=== PATIENT | male | born 1960 | race Caucasian/White ===

== ENCOUNTER 2016-12-08 16:18 | Inpatient (IN) | payer MEDICAID ==
[2016-12-08] VITALS (7 sets, daily range): BP systolic 110–133; BP diastolic 68–88
[~2016-12-08] VITALS: Ht 162.6 cm; Wt 65.8 kg
--- NOTE | 2016-12-08 16:28 | Emergency Room Report ---
History of Present Illness General Chief Complaint: Abnormal Labs Source: Patient, Medical Record, EMS Present Illness HPI 56YOM Sent from SNF for "low Hb". Hb 7.9 from 1 week ago. Known anemia. Known CKD. Allergies: Uncoded Allergies: PCN (Allergy, Unknown, 12/08/16) Patient History Past Medical History: HTN, renal disease, other - anemia Past Surgical History: none Pertinent Family History: none Social History: Denies: alcohol use, drug use, smoking Immunizations: UTD Reviewed Nursing Documentation: PMH: Agreed, PSxH: Agreed Review of Systems All Other Systems: negative except mentioned in HPI Physical Exam Vital Signs Date Time Temp Pulse Resp B/P Pulse Ox O2 Delivery O2 Flow Rate FiO2 12/08/16 16:22 98.1 90 22 124/70 91 Room Air Sp02 EP Interpretation: reviewed, normal General Appearance: normal inspection, well appearing, no apparent distress, alert, GCS 15, non-toxic Head: normocephalic, atraumatic Eyes: bilateral eye EOMI, bilateral eye PERRL ENT: normal ENT inspection, hearing grossly normal, normal voice Neck: normal inspection, full range of motion, supple, no bony tend Respiratory: normal inspection, lungs clear, normal breath sounds, no respiratory distress, no retraction, no wheezing Cardiovascular #1: regular rate, rhythm, no edema Gastrointestinal: normal inspection, normal bowel sounds, non tender, soft, no guarding, no hernia Genitourinary: no CVA tenderness Musculoskeletal: normal inspection, back normal, normal range of motion, Aditya' s Sign negative Neurologic: normal inspection, alert, oriented x3, responsive, 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 7.6 - Transfused 2U PRBC in ED Hyperglycemia - Glucose ~300. - IVF Ns and insulin given - Bicarb, K normal. No AG. Very unlikely DKA Endorsed to Dr Roman as covering hospitalist at 617pm for med/surg admission Last Vital Signs Date Time Temp Pulse Resp B/P Pulse Ox O2 Delivery O2 Flow Rate FiO2 12/08/16 16:22 98.1 90 22 124/70 91 Room Air Status: improved Disposition: ADMITTED INPATIENT Condition: Serious SHARIFA CARLOS M.D. Dec 08, 2016 16:28
[2016-12-08 17:26] LABS: MEAN CORPUSCULAR HEMOGLOBIN 20.6 PG (27.0-31.0); MEAN CORPUSCULAR HGB CONC 28.4 G/DL (32.0-36.0); MEAN CORPUSCULAR VOLUME 73 FL (80-99); PLATELET COUNT 296 K/UL (150-450); RED BLOOD COUNT 3.69 M/UL (4.70-6.10); RED CELL DISTRIBUTION WIDTH 20.5 % (11.6-14.8)
[2016-12-08 17:45] LABS: ALANINE AMINOTRANSFERASE 10 U/L (3-41); ALBUMIN/GLOBULIN RATIO 0.3 (1.0-2.7); ANION GAP 14 (5-15); ASPARTATE AMINO TRANSFERASE 8 U/L (5-40); CALCIUM 9.3 mg/dL (8.6-10.2); CARBON DIOXIDE 25 mEQ/L (20-30); CHLORIDE 91 mEQ/L (98-107); CREATININE 0.6 mg/dL (0.7-1.2); GLOMERULAR FILTRATION RATE > 60 mL/min (>60); HEMOLYSIS 0; POTASSIUM 4.5 mEQ/L (3.4-4.9); SODIUM 130 mEQ/L (135-145); TOTAL PROTEIN 8.6 g/dL (6.6-8.7)
[2016-12-08 17:56] LABS: INR 1.1 (0.9-1.1); PROTHROMBIN TIME 11.4 SEC (9.30-11.50)
[2016-12-08] MEDS ORDERED: Miralax 17gm pkt ORAL PRN (18:30)
[2016-12-08] MEDS ORDERED: Zolpidem 5mg tab ORAL PRN (18:30)
[2016-12-08] MEDS ORDERED: Mylanta II UD 30ml ORAL PRN (18:30)
[2016-12-08 18:53] LABS: BAND NEUTROPHILS % (MANUAL) 1 % (0-8); LYMPHOCYTES % (MANUAL) 6 % (20-45); NEUTROPHILS % (MANUAL) 83 % (45-75); TOTAL CELLS COUNTED 100
[2016-12-08 18:55] LABS: ANISOCYTOSIS 3+; HYPOCHROMASIA 2+; MICROCYTES 2+; PLATELET MORPHOLOGY NORMAL; POLYCHROMASIA 1+
[2016-12-08 18:56] LABS: BASOPHILS % (MANUAL) 0 % (0-2); EOSINOPHILS % (MANUAL) 0 % (0-3); PLATELET ESTIMATE ADEQUATE
[2016-12-08] MEDS: Morphine Sulfate 2mg/ml Inj IVP PRN (19:14)
[2016-12-08] MEDS ORDERED: DULCOLAX10 MG RC (20:00)
[2016-12-08] MEDS ORDERED: BENAZEPRIL HCL40 MG ORAL (20:00)
[2016-12-08] MEDS ORDERED: FERROUS SULFAT325 MG ORAL (20:00)
[2016-12-08] MEDS ORDERED: FLEET ENEMA133 ML RECTAL (20:00)
[2016-12-08] MEDS ORDERED: DEPAKOTE ER500 MG ORAL (20:00)
[2016-12-08] MEDS ORDERED: COLACE100 MG ORAL (20:00)
[2016-12-08] MEDS ORDERED: ASPIRIN81 MG ORAL (20:00)
[2016-12-08] MEDS ORDERED: TYLENOL WITH C1 EAC2 ORAL (20:04)
[2016-12-08] MEDS ORDERED: MULTIVITAMINS1 EAC2 ORAL (20:04)
[2016-12-08] MEDS ORDERED: NORVASC10 MG ORAL (20:04)
[2016-12-08] MEDS ORDERED: ZOFRAN4 M3 ORAL (20:04)
[2016-12-08] MEDS ORDERED: ZOCOR20 M1 ORAL (20:04)
[2016-12-08] MEDS ORDERED: VITAMIN C500 M1 ORAL (20:04)
[2016-12-08] MEDS ORDERED: RESTORIL15 MG ORAL (20:04)
[2016-12-08] MEDS ORDERED: TYLENOL650 MG PR (20:04)
[2016-12-08] MEDS ORDERED: SENNA8.6 M2 PO (20:04)
[2016-12-08] MEDS ORDERED: TRAZODONE HCL150 MG ORAL (20:04)
[2016-12-08] MEDS ORDERED: GLUCOTROL5 MG ORAL (20:04)
[2016-12-08] MEDS ORDERED: MILK OF MA400 MG/51 ORAL (20:04)
[2016-12-08 20:28] LABS: PATH BLOOD SMEAR/OMC SENT TO PATHOLOGIST
[2016-12-08 22:21] LABS: RETICULOCYTE COUNT 0.4 % (0.0-2.0)
[2016-12-09] VITALS: BP 130/81
[2016-12-09 04:00] VITALS: BP 130/79
[2016-12-09 06:37] LABS: BASOPHILS % (AUTO) 1.1 % (0.0-2.0); EOSINOPHILS % (AUTO) 0.2 % (0.0-3.0); LYMPHOCYTES % (AUTO) 12.6 % (20.0-45.0); MEAN CORPUSCULAR HEMOGLOBIN 23.2 PG (27.0-31.0); MEAN CORPUSCULAR HGB CONC 30.9 G/DL (32.0-36.0); MEAN CORPUSCULAR VOLUME 75 FL (80-99); MEAN PLATELET VOLUME 4.4 FL (6.5-10.1); MONOCYTES % (AUTO) 10.7 % (1.0-10.0); NEUTROPHILS % (AUTO) 75.4 % (45.0-75.0); PLATELET COUNT 269 K/UL (150-450); RED CELL DISTRIBUTION WIDTH 20.4 % (11.6-14.8); WHITE BLOOD COUNT 6.5 K/UL (4.8-10.8)
[2016-12-09 06:54] LABS: ALANINE AMINOTRANSFERASE 9 U/L (3-41); ALBUMIN/GLOBULIN RATIO 0.3 (1.0-2.7); ANION GAP 13 (5-15); ASPARTATE AMINO TRANSFERASE 9 U/L (5-40); CALCIUM 9.4 mg/dL (8.6-10.2); CARBON DIOXIDE 25 mEQ/L (20-30); CHLORIDE 93 mEQ/L (98-107); CREATININE 0.5 mg/dL (0.7-1.2); GLOMERULAR FILTRATION RATE > 60 mL/min (>60); HEMOLYSIS 0; POTASSIUM 4.2 mEQ/L (3.4-4.9); SODIUM 131 mEQ/L (135-145); TOTAL PROTEIN 8.9 g/dL (6.6-8.7)
[2016-12-09 08:00] VITALS: BP 120/80
--- NOTE | 2016-12-09 09:46 | History and Physical ---
History of Present Illness General Date patient seen: Dec 09, 2016 Time patient seen: 09:00 Reason for Hospitalization: anemia Present Illness HPI 56Y/O male with PMH of DM, HTN, hx of CVA, anemia, CKD, schizophrenia was sent from SNF for "low Hb". Hb 7.9 from 1 week ago in SNF IN ED HH - 7.6/26.8 patient received 2 u PRBC in ED BS -300 ; no elevated AG, stable K and bicarbonate, unlikely DKA pulse oximetry was 91% on RA Na-130 patient was admitted for further management Allergies: Uncoded Allergies: PCN (Allergy, Unknown, 12/08/16) Medication History Scheduled Amlodipine Besylate (Norvasc), 10 MG ORAL DAILY, (Reported) Ascorbic Acid* (Vitamin C*), 500 MG ORAL DAILY, (Reported) Aspirin* (Aspirin*), 81 MG ORAL DAILY, (Reported) Benazepril Hcl* (Benazepril Hcl*), 40 MG ORAL DAILY, (Reported) Divalproex Sodium* (Depakote Er*), 500 MG ORAL TID, (Reported) Docusate Sodium* (Colace*), 100 MG ORAL DAILY, (Reported) Ferrous Sulfate* (Ferrous Sulfate*), 325 MG ORAL DAILY, (Reported) Glipizide* (Glucotrol*), 5 MG ORAL ACBREAKFAST, (Reported) Multivitamins* (Multivitamins*), 1 TAB ORAL DAILY, (Reported) Na Phos,M-B/Na Phos,Di-Ba* (Fleet Enema*), 133 ML RECTAL DAILY, (Reported) Sennosides (Senna), 2 TAB PO BEDTIME, (Reported) Simvastatin (Zocor), 20 MG ORAL BEDTIME, (Reported) Trazodone* (Trazodone*), 75 MG ORAL BEDTIME, (Reported) Scheduled PRN Acetaminophen (Acetaminophen), 650 MG MI Q4HR PRN for For Pain, (Reported) Acetaminophen With Codeine (T#3) (Tylenol With Codeine #3 Tablet), 1 TAB ORAL Q6HR PRN for For Pain, (Reported) Bisacodyl (Dulcolax), 10 MG RC NEEDED PRN for Constipation, (Reported) Magnesium Hydroxide* (Milk Of Magnesia*), 30 ML ORAL DAILY PRN for Constipation, (Reported) Ondansetron* (Zofran*), 4 MG ORAL Q6H PRN for Nausea & Vomiting, (Reported) Temazepam* (Restoril*), 15 MG ORAL BEDTIME PRN for Insomnia, (Reported) Patient History Healthcare decision maker N Resuscitation status Full Code Advanced Directive on File Yes Past Medical/Surgical History Past Medical/Surgical History: (1) HTN (hypertension) (2) CKD (chronic kidney disease) (3) Anemia (4) Bipolar disorder (5) Schizophrenia (6) History of CVA (cerebrovascular accident) Review of Systems ROS Narrative limited due to patietn Physical Exam General Appearance: no apparent distress, alert Lines, tubes and drains: peripheral HEENT: normocephalic, atraumatic, anicteric, mucous membranes moist Respiratory/Chest: lungs clear, no respiratory distress, no accessory muscle use Cardiovascular/Chest: normal rate, regular rhythm, no JVD Abdomen: normal bowel sounds, non tender, soft Skin Exam: rash - generalzied, pruritic, linear streaks all over the body, some with blood from scratching Neurologic: alert, responsive Last 24 Hour Vital Signs Date Time Temp Pulse Resp B/P Pulse Ox O2 Delivery O2 Flow Rate FiO2 12/09/16 08:00 97.3 87 20 120/80 91 Room Air 12/09/16 04:00 97.4 83 18 130/79 96 Room Air 12/09/16 00:00 97.0 84 20 130/81 96 Room Air 12/08/16 21:00 96.4 87 20 133/87 94 Room Air 12/08/16 20:53 96.4 87 20 133/87 94 Room Air 12/08/16 20:10 99.0 89 22 119/88 95 Room Air 12/08/16 19:55 99.0 89 22 119/88 95 Room Air 12/08/16 19:40 99.6 86 24 12/08/16 19:40 99.6 86 24 117/84 94 Room Air 12/08/16 19:00 98.8 85 21 117/84 95 Room Air 12/08/16 17:59 98.3 90 21 110/76 95 Room Air 12/08/16 16:30 98.7 91 21 117/68 93 Room Air 12/08/16 16:22 98.1 90 22 124/70 91 Room Air Intake and Output 12/08/16 12/09/16 19:00 07:00 Intake Total 240 ml 3440 ml Output Total 200 ml Balance 40 ml 3440 ml Intake Oral 240 ml 1840 ml IV Total 1000 ml Blood Product 600 ml Output Urine Total 200 ml # Voids 1 5 Laboratory Tests Test 12/08/16 17:05 12/08/16 19:40 12/09/16 05:50 White Blood Count 6.0 K/UL (4.8-10.8) 6.5 K/UL (4.8-10.8) Red Blood Count 3.69 M/UL (4.70-6.10) L 3.80 M/UL (4.70-6.10) L Hemoglobin 7.6 G/DL (14.2-18.0) L 8.8 G/DL (14.2-18.0) L Hematocrit 26.8 % (42.0-52.0) L 28.6 % (42.0-52.0) L Mean Corpuscular Volume 73 FL (80-99) L 75 FL (80-99) L Mean Corpuscular Hemoglobin 20.6 PG (27.0-31.0) L 23.2 PG (27.0-31.0) L Mean Corpuscular Hemoglobin Concent 28.4 G/DL (32.0-36.0) L 30.9 G/DL (32.0-36.0) L Red Cell Distribution Width 20.5 % (11.6-14.8) H 20.4 % (11.6-14.8) H Platelet Count 296 K/UL (150-450) 269 K/UL (150-450) Mean Platelet Volume 5.0 FL (6.5-10.1) L 4.4 FL (6.5-10.1) L Neutrophils (%) (Auto) % (45.0-75.0) 75.4 % (45.0-75.0) H Lymphocytes (%) (Auto) % (20.0-45.0) 12.6 % (20.0-45.0) L Monocytes (%) (Auto) % (1.0-10.0) 10.7 % (1.0-10.0) H Eosinophils (%) (Auto) % (0.0-3.0) 0.2 % (0.0-3.0) Basophils (%) (Auto) % (0.0-2.0) 1.1 % (0.0-2.0) Differential Total Cells Counted 100 Neutrophils % (Manual) 83 % (45-75) H Lymphocytes % (Manual) 6 % (20-45) L Monocytes % (Manual) 10 % (1-10) Eosinophils % (Manual) 0 % (0-3) Basophils % (Manual) 0 % (0-2) Band Neutrophils 1 % (0-8) Platelet Estimate Adequate Platelet Morphology Normal Polychromasia 1+ Hypochromasia 2+ Anisocytosis 3+ Microcytosis 2+ Prothrombin Time 11.4 SEC (9.30-11.50) Prothromb Time International Ratio 1.1 (0.9-1.1) Activated Partial Thromboplast Time 35 SEC (23-33) H Sodium Level 130 mEQ/L (135-145) L 131 mEQ/L (135-145) L Potassium Level 4.5 mEQ/L (3.4-4.9) 4.2 mEQ/L (3.4-4.9) Chloride Level 91 mEQ/L (98-107) L 93 mEQ/L (98-107) L Carbon Dioxide Level 25 mEQ/L (20-30) 25 mEQ/L (20-30) Anion Gap 14 (5-15) 13 (5-15) Blood Urea Nitrogen 12 mg/dL (7-23) 9 mg/dL (7-23) Creatinine 0.6 mg/dL (0.7-1.2) L 0.5 mg/dL (0.7-1.2) L Estimat Glomerular Filtration Rate > 60 mL/min (>60) > 60 mL/min (>60) Glucose Level 300 mg/dL (74-106) H 93 mg/dL (74-106) # Calcium Level 9.3 mg/dL (8.6-10.2) 9.4 mg/dL (8.6-10.2) Total Bilirubin 0.2 mg/dL (0.0-1.2) 0.4 mg/dL (0.0-1.2) Aspartate Amino Transf (AST/SGOT) 8 U/L (5-40) 9 U/L (5-40) Alanine Aminotransferase (ALT/SGPT) 10 U/L (3-41) 9 U/L (3-41) Alkaline Phosphatase 170 U/L (40-129) H 166 U/L (40-129) H Total Protein 8.6 g/dL (6.6-8.7) 8.9 g/dL (6.6-8.7) H Albumin 2.4 g/dL (3.5-5.2) L 2.3 g/dL (3.5-5.2) L Globulin 6.2 g/dL 6.6 g/dL Albumin/Globulin Ratio 0.3 (1.0-2.7) L 0.3 (1.0-2.7) L Erythrocyte Sedimentation Rate 48 MM/HR (0-20) H Reticulocyte Count 0.4 % (0.0-2.0) Iron Level 27 ug/dL (59-158) L Total Iron Binding Capacity 177 ug/dL (250-400) L Percent Iron Saturation 15 % (15-50) Unsaturated Iron Binding 150 ug/dL (112-346) Lactate Dehydrogenase Pending Carcinoembryonic Antigen 2.6 ng/mL Vitamin B12 Level 421 pg/mL (211-946) Folate Pending Thyroid Stimulating Hormone (TSH) 9.670 uIU/mL (0.300-4.500) Height (Feet): 5 Height (Inches): 4.00 Weight (Pounds): 145 Medications Current Medications Medications (Trade) Dose Ordered Sig/Korey Route PRN Reason Start Time Stop Time Status Last Admin Dose Admin Acetaminophen (Tylenol) 650 mg Q4H PRN ORAL fever 12/08/16 18:30 01/07/17 18:29 Al Hydroxide/Mg Hydroxide (Mylanta II) 30 ml Q6H PRN ORAL dyspepsia 12/08/16 18:30 01/07/17 18:29 Dextrose (Dextrose 50%) STAT PRN IV Hypoglycemia 12/08/16 18:30 01/07/17 18:29 Lorazepam (Ativan 2mg/ml 1ml) 0.5 mg Q4H PRN IV For Anxiety 12/08/16 18:30 12/15/16 18:29 Morphine Sulfate (Morphine Sulfate) 1 mg Q4H PRN IVP For Pain 12/08/16 18:30 12/15/16 18:29 12/08/16 19:14 Ondansetron HCl (Zofran) 4 mg Q6H PRN IVP Nausea & Vomiting 12/08/16 18:30 01/07/17 18:29 Polyethylene Glycol (Miralax) 17 gm HSPRN PRN ORAL Constipation 12/08/16 18:30 01/07/17 18:29 Zolpidem Tartrate (Ambien) 5 mg HSPRN PRN ORAL Insomnia 12/08/16 18:30 01/07/17 18:29 Assessment/Plan Assessment/Plan ASSESSMENT anemia hyperglycemia DM Rash with pruritis possible scabies elevated TSH hyponatremia HTN schizophrenia PLAN OF CARE MS floor anemia workup monitor HH, transfuse prn check CEA stool OB BS management with SS of insulin , check HgA1c IVF with NS, check Na in am, renal parameters stable check free T4 and T3, no known history of hypothyroidism, elevated TSH noted Permethrin today antipruritic prn contact isolation wound nurse eval venous Duplex BLE BP stable, without any anti HTN will reevaluate in am consider psych eval resume Depakote bowel regimen case discussed and evaluated by supervising physician Dimitris (Yaritza),Sandi JAQUEZ Dec 09, 2016 09:46
[2016-12-09 12:00] VITALS: BP 133/84
[2016-12-09] MEDS ORDERED: HydrOXYzine 50mg cap ORAL PRN (14:30)
[2016-12-09] MEDS: LORazepam Inj 2mg/ml 1ml IV PRN (15:04)
[2016-12-09] MEDS: Morphine Sulfate 2mg/ml Inj IVP PRN (15:05)
[2016-12-09 16:00] VITALS: BP 99/54
[2016-12-09] MEDS: NovoLOG Insulin Flexpen SUBQ SCH ×2 (17:23→20:37)
[2016-12-09] MEDS: Depakote ER 500mg tab ORAL SCH (18:36)
[2016-12-10] VITALS: BP 127/83
[2016-12-10 04:00] VITALS: BP 121/85
[2016-12-10] MEDS: NovoLOG Insulin Flexpen SUBQ SCH ×4 (05:57→22:07)
[2016-12-10] MEDS: Morphine Sulfate 2mg/ml Inj IVP PRN ×3 (06:38→22:56)
[2016-12-10 06:58] LABS: HEMOGLOBIN A1C 5.6 % (< 6.0)
[2016-12-10 07:12] LABS: BASOPHILS % (AUTO) 1.2 % (0.0-2.0); EOSINOPHILS % (AUTO) 0.7 % (0.0-3.0); LYMPHOCYTES % (AUTO) 12.4 % (20.0-45.0); MEAN CORPUSCULAR HEMOGLOBIN 22.6 PG (27.0-31.0); MEAN CORPUSCULAR HGB CONC 29.9 G/DL (32.0-36.0); MEAN CORPUSCULAR VOLUME 76 FL (80-99); MEAN PLATELET VOLUME 4.4 FL (6.5-10.1); MONOCYTES % (AUTO) 14.2 % (1.0-10.0); NEUTROPHILS % (AUTO) 71.5 % (45.0-75.0); PLATELET COUNT 309 K/UL (150-450); RED BLOOD COUNT 3.98 M/UL (4.70-6.10); RED CELL DISTRIBUTION WIDTH 21.2 % (11.6-14.8); WHITE BLOOD COUNT 5.6 K/UL (4.8-10.8)
[2016-12-10 07:13] LABS: ANION GAP 14 (5-15); CALCIUM 9.4 mg/dL (8.6-10.2); CARBON DIOXIDE 23 mEQ/L (20-30); CHLORIDE 97 mEQ/L (98-107); CREATININE 0.5 mg/dL (0.7-1.2); GLOMERULAR FILTRATION RATE > 60 mL/min (>60); HEMOLYSIS 0; POTASSIUM 3.9 mEQ/L (3.4-4.9); SODIUM 134 mEQ/L (135-145)
[2016-12-10 08:00] VITALS: BP 130/80
[2016-12-10] MEDS: Depakote ER 500mg tab ORAL SCH ×3 (08:23→18:27)
[2016-12-10] MEDS: LORazepam Inj 2mg/ml 1ml IV PRN ×2 (08:37→20:10)
--- NOTE | 2016-12-10 11:52 | Pulmonology Progress Note ---
Assessment/Plan Assessment/Plan ASSESSMENT anemia hyperglycemia DM Rash with pruritis possible scabies hypothyroidism ( new onset) hyponatremia HTN schizophrenia PLAN OF CARE MS floor anemia workup with low iron ,Venofer x 1 monitor HH, transfuse prn CEA WNL stool OB BS management with SS of insulin , NgG5p-3.6 IVF with NS, Na up to 134, hypoNa likely was depletional , continue iVF x 1 more day renal parameters stable low free T4 and elevated TSH, no known history of hypothyroidism, new onset, will start low dose Synthroid s/p Permethrin Rx 12/09 and repeat in 1 week in SNF antipruritic prn contact isolation wound nurse eval venous Duplex BLE remains normotensive, no need for anti HTN at this time will reevaluate in am consider psych eval resume Depakote bowel regimen case discussed and evaluated by supervising physician Subjective Allergies: Uncoded Allergies: PCN (Allergy, Unknown, 12/08/16) Subjective HH stable after transfusion HH up to 9.0/30 Objective Last 24 Hour Vital Signs Date Time Temp Pulse Resp B/P Pulse Ox O2 Delivery O2 Flow Rate FiO2 12/10/16 08:00 97.4 101 20 130/80 92 Room Air 12/10/16 07:08 99.1 12/10/16 04:00 99.1 77 20 121/85 94 Room Air 12/10/16 00:00 100.4 92 20 127/83 94 Room Air 12/09/16 16:00 97.3 76 20 99/54 92 Room Air 12/09/16 12:00 97.3 87 20 133/84 92 Room Air Intake and Output 12/09/16 12/10/16 19:00 07:00 Intake Total 235 ml 900 ml Balance 235 ml 900 ml Intake Oral 200 ml IV Total 35 ml 900 ml # Voids 6 4 # Bowel Movements 4 2 Objective General Appearance: no apparent distress, alert Lines, tubes and drains: peripheral HEENT: normocephalic, atraumatic, anicteric, mucous membranes moist Respiratory/Chest: lungs clear, no respiratory distress, no accessory muscle use Cardiovascular/Chest: normal rate, regular rhythm, no JVD Abdomen: normal bowel sounds, non tender, soft Skin Exam: rash - generalized, pruritic, linear streaks all over the body, some with blood from scratching Neurologic: alert, responsive Laboratory Tests 12/10/16 05:10: White Blood Count 5.6, Red Blood Count 3.98L, Hemoglobin 9.0L, Hematocrit 30.0L , Mean Corpuscular Volume 76L, Mean Corpuscular Hemoglobin 22.6L, Mean Corpuscular Hemoglobin Concent 29.9L, Red Cell Distribution Width 21.2H, Platelet Count 309, Mean Platelet Volume 4.4L, Neutrophils (%) (Auto) 71.5, Lymphocytes (%) (Auto) 12.4L, Monocytes (%) (Auto) 14.2H, Eosinophils (%) (Auto ) 0.7, Basophils (%) (Auto) 1.2, Sodium Level 134L, Potassium Level 3.9, Chloride Level 97L, Carbon Dioxide Level 23, Anion Gap 14, Blood Urea Nitrogen 11, Creatinine 0.5L, Estimat Glomerular Filtration Rate > 60, Glucose Level 95, Hemoglobin A1c 5.6, Calcium Level 9.4, Free Thyroxine 0.78L, Free Triiodothyronine [Pending] Current Medications Medications (Trade) Dose Ordered Sig/Korey Route PRN Reason Start Time Stop Time Status Last Admin Dose Admin Acetaminophen (Tylenol) 650 mg Q4H PRN ORAL fever 12/08/16 18:30 01/07/17 18:29 Al Hydroxide/Mg Hydroxide (Mylanta II) 30 ml Q6H PRN ORAL dyspepsia 12/08/16 18:30 01/07/17 18:29 Dextrose (Dextrose 50%) STAT PRN IV Hypoglycemia 12/08/16 18:30 01/07/17 18:29 Dextrose (Dextrose 50%) STAT PRN IV Hypoglycemia 12/09/16 15:00 01/08/17 14:59 Divalproex Sodium 500 mg 500 mg TID ORAL 12/09/16 18:00 01/08/17 17:59 12/10/16 08:23 Hydroxyzine HCl (Atarax) 50 mg Q6H PRN ORAL Itching 12/09/16 14:30 01/08/17 14:29 Insulin Aspart (NovoLOG) BEFORE MEALS AND HS SUBQ 12/09/16 16:30 01/08/17 16:29 12/09/16 20:37 Lorazepam (Ativan 2mg/ml 1ml) 0.5 mg Q4H PRN IV For Anxiety 12/08/16 18:30 12/15/16 18:29 12/10/16 08:37 Morphine Sulfate (Morphine Sulfate) 1 mg Q4H PRN IVP For Pain 12/08/16 18:30 12/15/16 18:29 12/10/16 06:38 Ondansetron HCl (Zofran) 4 mg Q6H PRN IVP Nausea & Vomiting 12/08/16 18:30 01/07/17 18:29 Polyethylene Glycol (Miralax) 17 gm HSPRN PRN ORAL Constipation 12/08/16 18:30 01/07/17 18:29 Sodium Chloride (Sodium Chloride 1000ml bag) 1,000 ml @ 75 mls/hr [id number] IV 12/09/16 15:15 01/08/17 15:14 12/10/16 08:09 Zolpidem Tartrate (Ambien) 5 mg HSPRN PRN ORAL Insomnia 12/08/16 18:30 01/07/17 18:29 [facility] [place] Tavares NP Dec 10, 2016 11:52
[2016-12-10 12:06] VITALS: BP 124/77
[2016-12-10 15:52] VITALS: BP 126/84
[2016-12-10] MEDS ORDERED: NS 275ml ONE (15:57)
[2016-12-10 20:00] VITALS: BP 131/87
[2016-12-10] MEDS ORDERED: Iron Sucrose 100 MG in NS 55 ML IVPB ONE (21:00)
[2016-12-11] VITALS: BP 116/72
[2016-12-11 04:00] VITALS: BP 105/68
[2016-12-11] MEDS: LORazepam Inj 2mg/ml 1ml IV PRN ×3 (05:43→19:01)
[2016-12-11] MEDS: Levothyroxine 25mcg tab ORAL SCH (06:04)
[2016-12-11] MEDS: NovoLOG Insulin Flexpen SUBQ SCH ×4 (06:11→21:00)
[2016-12-11 06:54] LABS: ANION GAP 15 (5-15); CALCIUM 9.2 mg/dL (8.6-10.2); CARBON DIOXIDE 22 mEQ/L (20-30); CHLORIDE 93 mEQ/L (98-107); CREATININE 0.5 mg/dL (0.7-1.2); GLOMERULAR FILTRATION RATE > 60 mL/min (>60); HEMOLYSIS 2; POTASSIUM 3.7 mEQ/L (3.4-4.9); SODIUM 130 mEQ/L (135-145)
[2016-12-11 06:59] LABS: BASOPHILS % (AUTO) 0.8 % (0.0-2.0); EOSINOPHILS % (AUTO) 0.2 % (0.0-3.0); LYMPHOCYTES % (AUTO) 6.4 % (20.0-45.0); MEAN CORPUSCULAR HEMOGLOBIN 22.5 PG (27.0-31.0); MEAN CORPUSCULAR HGB CONC 29.7 G/DL (32.0-36.0); MEAN CORPUSCULAR VOLUME 76 FL (80-99); MEAN PLATELET VOLUME 4.6 FL (6.5-10.1); MONOCYTES % (AUTO) 11.4 % (1.0-10.0); NEUTROPHILS % (AUTO) 81.2 % (45.0-75.0); PLATELET COUNT 287 K/UL (150-450); RED BLOOD COUNT 3.92 M/UL (4.70-6.10); RED CELL DISTRIBUTION WIDTH 21.1 % (11.6-14.8); WHITE BLOOD COUNT 7.1 K/UL (4.8-10.8)
[2016-12-11 08:00] VITALS: BP 130/84
[2016-12-11] MEDS: Depakote ER 500mg tab ORAL SCH ×3 (08:31→17:07)
[2016-12-11] MEDS: Morphine Sulfate 2mg/ml Inj IVP PRN ×2 (08:46→18:29)
--- NOTE | 2016-12-11 09:54 | Wound Care Consultation ---
Wound Assessment Wound Assessment #1: Wound Number: #1 Wound Present on Admission: Yes New Wound: No Status Change of Wound: No Wound Location Body Site Modif: right Wound Location Body Site: ischial tuberosity Wound Type: pressure ulcer Mariam Test: Does not Mariam Pressure Ulcer Stage: IV/unstageable Wound Thickness: Full Thickness Wound Length: 4.0 Wound Width: 2.0 Wound Depth: utd Percent of Wound Bed Yellow/Wh: 90 Percent of Wound Black/Brown: 10 Wound Drainage Description: Serosanguineous Wound Drainage Amount: Moderate Wound Drainage Odor: None/Absent Tissue Surrounding Wound: Macerated Wound General Appearance: Draining, Necrotic Wound Assessment #2: Wound Number: #2 Wound Present on Admission: Yes New Wound: No Status Change of Wound: No Wound Location Body Site Modif: other - generalized body Wound Type: rash - with scattered scabs Percent of Wound Shelley/Red: 100 Wound Drainage Amount: None Wound Drainage Odor: None/Absent Tissue Surrounding Wound: Erythemic Wound General Appearance: Reddened Wound Comment #1 Right ischial tuberosity pressure ulcer unstageable. #2 Generalized body rash with scattered scabs, possible scabies. Recommendation. -Local wound care as ordered. -Apply low air loss SPR mattress. -Keep clean and dry. -Optimize nutrition. -Turn and reposition. -Offload affected site. -Avoid shear and friction. -Assess and follow up with MD for any further changes of condition to skin noted. TIMA JARAMILLO Dec 11, 2016 09:54
[2016-12-11 11:36] VITALS: BP 134/83
[2016-12-11 15:46] VITALS: BP 138/63
--- NOTE | 2016-12-11 17:01 | Pulmonology Progress Note ---
Subjective Allergies: Uncoded Allergies: PCN (Allergy, Unknown, 12/08/16) Objective Last 24 Hour Vital Signs Date Time Temp Pulse Resp B/P Pulse Ox O2 Delivery O2 Flow Rate FiO2 12/11/16 15:46 97.1 104 18 138/63 92 Room Air 12/11/16 11:36 97.3 98 18 134/83 90 Room Air 12/11/16 09:16 98.2 12/11/16 08:00 98.2 106 18 130/84 90 Room Air 12/11/16 04:00 97.6 103 18 105/68 96 Room Air 12/11/16 00:00 97.3 106 18 116/72 94 Room Air 12/10/16 20:00 98.8 101 18 131/87 93 Room Air Intake and Output 12/10/16 12/11/16 19:00 07:00 Intake Total 1260 ml 900 ml Balance 1260 ml 900 ml Intake Oral 360 ml IV Total 900 ml 900 ml # Voids 5 3 # Bowel Movements 2 Microbiology Date/Time Source Procedure Growth Status 12/08/16 18:00 Nasal Nares MRSA Culture - Final NO METHICILLIN RESISTANT STAPH AUREUS... Complete 12/08/16 18:00 Rectum VRE Culture - Final NO VANCOMYCIN RESISTANT ENTEROCOCCUS ... Complete Laboratory Tests 12/11/16 05:35: White Blood Count 7.1, Red Blood Count 3.92L, Hemoglobin 8.8L, Hematocrit 29.7L , Mean Corpuscular Volume 76L, Mean Corpuscular Hemoglobin 22.5L, Mean Corpuscular Hemoglobin Concent 29.7L, Red Cell Distribution Width 21.1H, Platelet Count 287, Mean Platelet Volume 4.6L, Neutrophils (%) (Auto) 81.2H, Lymphocytes (%) (Auto) 6.4L, Monocytes (%) (Auto) 11.4H, Eosinophils (%) (Auto) 0.2, Basophils (%) (Auto) 0.8, Sodium Level 130L, Potassium Level 3.7, Chloride Level 93L, Carbon Dioxide Level 22, Anion Gap 15, Blood Urea Nitrogen 8, Creatinine 0.5L, Estimat Glomerular Filtration Rate > 60, Glucose Level 94, Calcium Level 9.2 Current Medications Medications (Trade) Dose Ordered Sig/Korey Route PRN Reason Start Time Stop Time Status Last Admin Dose Admin Acetaminophen (Tylenol) 650 mg Q4H PRN ORAL fever 12/08/16 18:30 01/07/17 18:29 Al Hydroxide/Mg Hydroxide (Mylanta II) 30 ml Q6H PRN ORAL dyspepsia 12/08/16 18:30 01/07/17 18:29 Dextrose (Dextrose 50%) STAT PRN IV Hypoglycemia 12/08/16 18:30 01/07/17 18:29 Dextrose (Dextrose 50%) STAT PRN IV Hypoglycemia 12/09/16 15:00 01/08/17 14:59 Divalproex Sodium 500 mg 500 mg TID ORAL 12/09/16 18:00 01/08/17 17:59 12/11/16 12:27 Hydroxyzine HCl (Atarax) 50 mg Q6H PRN ORAL Itching 12/09/16 14:30 01/08/17 14:29 Insulin Aspart (NovoLOG) BEFORE MEALS AND HS SUBQ 12/09/16 16:30 01/08/17 16:29 12/11/16 16:42 Levothyroxine Sodium (Synthroid) 25 mcg DAILY@0630 ORAL 12/11/16 06:30 01/10/17 06:29 12/11/16 06:04 Lorazepam (Ativan 2mg/ml 1ml) 0.5 mg Q4H PRN IV For Anxiety 12/08/16 18:30 12/15/16 18:29 12/11/16 11:14 Morphine Sulfate (Morphine Sulfate) 1 mg Q4H PRN IVP For Pain 12/08/16 18:30 12/15/16 18:29 12/11/16 08:46 Ondansetron HCl (Zofran) 4 mg Q6H PRN IVP Nausea & Vomiting 12/08/16 18:30 01/07/17 18:29 Polyethylene Glycol (Miralax) 17 gm HSPRN PRN ORAL Constipation 12/08/16 18:30 01/07/17 18:29 Sodium Chloride (Sodium Chloride 1000ml bag) 1,000 ml @ 75 mls/hr [id number] IV 12/09/16 15:15 01/08/17 15:14 12/11/16 12:30 Zolpidem Tartrate (Ambien) 5 mg HSPRN PRN ORAL Insomnia 12/08/16 18:30 01/07/17 18:29 BRAXTON SUAREZ Dec 11, 2016 17:01
[2016-12-11] MEDS ORDERED: DuoNeb 0.5-3(2.5)mg/3ml neb HHN PRN (18:30)
[2016-12-11] MEDS ORDERED: Promethazine/Codeine 5ml UD ORAL PRN (18:30)
[2016-12-11] MEDS ORDERED: Haloperidol 5mg/ml Inj IVPB PRN (19:15)
--- NOTE | 2016-12-11 19:23 | Pulmonology Progress Note ---
Assessment/Plan Problems: (1) Acute respiratory failure (2) Anemia (3) Bipolar disorder (4) Schizophrenia (5) History of CVA (cerebrovascular accident) Assessment/Plan cxr stat titrate fio2 to sat of 92% respiratory treatment antitussives sputum for c/s Subjective ROS Limited/Unobtainable: No Interval Events: dyspnea, cough, desaturation Allergies: Uncoded Allergies: PCN (Allergy, Unknown, 12/08/16) Objective Last 24 Hour Vital Signs Date Time Temp Pulse Resp B/P Pulse Ox O2 Delivery O2 Flow Rate FiO2 12/11/16 15:46 97.1 104 18 138/63 92 Room Air 12/11/16 11:36 97.3 98 18 134/83 90 Room Air 12/11/16 09:16 98.2 12/11/16 08:00 98.2 106 18 130/84 90 Room Air 12/11/16 04:00 97.6 103 18 105/68 96 Room Air 12/11/16 00:00 97.3 106 18 116/72 94 Room Air 12/10/16 20:00 98.8 101 18 131/87 93 Room Air Intake and Output 12/10/16 12/11/16 19:00 07:00 Intake Total 1260 ml 900 ml Balance 1260 ml 900 ml Intake Oral 360 ml IV Total 900 ml 900 ml # Voids 5 3 # Bowel Movements 2 Objective General Appearance: WD/WN HEENT: normocephalic, atraumatic Respiratory/Chest: chest wall non-tender, lungs rhonchi Cardiovascular: normal peripheral pulses, normal rate Abdomen: normal bowel sounds, soft, non tender, no organomegaly Extremities: no cyanosis, no clubbing Skin: no rash Laboratory Tests 12/11/16 05:35: White Blood Count 7.1, Red Blood Count 3.92L, Hemoglobin 8.8L, Hematocrit 29.7L , Mean Corpuscular Volume 76L, Mean Corpuscular Hemoglobin 22.5L, Mean Corpuscular Hemoglobin Concent 29.7L, Red Cell Distribution Width 21.1H, Platelet Count 287, Mean Platelet Volume 4.6L, Neutrophils (%) (Auto) 81.2H, Lymphocytes (%) (Auto) 6.4L, Monocytes (%) (Auto) 11.4H, Eosinophils (%) (Auto) 0.2, Basophils (%) (Auto) 0.8, Sodium Level 130L, Potassium Level 3.7, Chloride Level 93L, Carbon Dioxide Level 22, Anion Gap 15, Blood Urea Nitrogen 8, Creatinine 0.5L, Estimat Glomerular Filtration Rate > 60, Glucose Level 94, Calcium Level 9.2 Current Medications Medications (Trade) Dose Ordered Sig/K[place]y Route PRN Reason Start Time Stop Time Status Last Admin Dose Admin Acetaminophen (Tylenol) 650 mg Q4H PRN ORAL fever 12/08/16 18:30 01/07/17 18:29 Al Hydroxide/Mg Hydroxide (Mylanta II) 30 ml Q6H PRN ORAL dyspepsia 12/08/16 18:30 01/07/17 18:29 Albuterol/ Ipratropium (DuoNeb 0.5-3(2.5)mg/3ml) 3 ml Q6HRT PRN HHN sob 12/11/16 18:30 12/16/16 18:29 Dextrose (Dextrose 50%) STAT PRN IV Hypoglycemia 12/08/16 18:30 01/07/17 18:29 Dextrose (Dextrose 50%) STAT PRN IV Hypoglycemia 12/09/16 15:00 01/08/17 14:59 Divalproex Sodium 500 mg 500 mg TID ORAL 12/09/16 18:00 01/08/17 17:59 12/11/16 17:07 Haloperidol Lactate (Haldol) 5 mg Q4HR PRN IVPB Agitation 12/11/16 19:15 01/10/17 19:14 UNV Hydroxyzine HCl (Atarax) 50 mg Q6H PRN ORAL Itching 12/09/16 14:30 01/08/17 14:29 Insulin Aspart (NovoLOG) BEFORE MEALS AND HS SUBQ 12/09/16 16:30 01/08/17 16:29 12/11/16 16:42 Levothyroxine Sodium (Synthroid) 25 mcg DAILY@0630 ORAL 12/11/16 06:30 01/10/17 06:29 12/11/16 06:04 Lorazepam (Ativan 2mg/ml 1ml) 0.5 mg Q4H PRN IV For Anxiety 12/08/16 18:30 12/15/16 18:29 12/11/16 19:01 Morphine Sulfate (Morphine Sulfate) 1 mg Q4H PRN IVP For Pain 12/08/16 18:30 12/15/16 18:29 12/11/16 18:29 Ondansetron HCl (Zofran) 4 mg Q6H PRN IVP Nausea & Vomiting 12/08/16 18:30 01/07/17 18:29 Polyethylene Glycol (Miralax) 17 gm HSPRN PRN ORAL Constipation 12/08/16 18:30 01/07/17 18:29 Promethazine HCl/ Codeine (Phenergan with Codeine) 5 ml Q4H PRN ORAL For Cough 12/11/16 18:30 01/10/17 18:29 Sodium Chloride (Sodium Chloride 1000ml bag) 1,000 ml @ 75 mls/hr [id number] IV 12/09/16 15:15 01/08/17 15:14 12/11/16 12:30 Zolpidem Tartrate (Ambien) 5 mg HSPRN PRN ORAL Insomnia 12/08/16 18:30 01/07/17 18:29 BRAXTON SUAREZ Dec 11, 2016 19:23
[2016-12-11 20:00] VITALS: BP 134/98
--- NOTE | 2016-12-11 22:39 | Diagnostic Imaging Report ---
APPROVED REPORT CPT Code: 08046 Present Symptoms Lower Extremity Pain: Bilateral BILATERAL: Imaging reveals a patent deep venous system bilaterally. There is no evidence of thrombus within the femoral, popliteal or tibial segments. The greater saphenous veins are also within normal limits. Doppler indicates normal spontaneous flow within these segments.
[2016-12-12] VITALS (8 sets, daily range): BP systolic 102–134; BP diastolic 64–88
[2016-12-12 06:06] LABS: MEAN CORPUSCULAR HEMOGLOBIN 22.6 PG (27.0-31.0); MEAN CORPUSCULAR HGB CONC 29.3 G/DL (32.0-36.0); MEAN CORPUSCULAR VOLUME 77 FL (80-99); MEAN PLATELET VOLUME 4.8 FL (6.5-10.1); PLATELET COUNT 271 K/UL (150-450); RED BLOOD COUNT 4.12 M/UL (4.70-6.10); RED CELL DISTRIBUTION WIDTH 21.9 % (11.6-14.8); WHITE BLOOD COUNT 17.7 K/UL (4.8-10.8)
[2016-12-12] MEDS: NovoLOG Insulin Flexpen SUBQ SCH ×4 (06:22→21:00)
[2016-12-12] MEDS: Levothyroxine 25mcg tab ORAL SCH (06:23)
[2016-12-12 06:27] LABS: ALANINE AMINOTRANSFERASE 18 U/L (3-41); ALBUMIN/GLOBULIN RATIO 0.3 (1.0-2.7); ANION GAP 20 (5-15); ASPARTATE AMINO TRANSFERASE 18 U/L (5-40); CALCIUM 9.3 mg/dL (8.6-10.2); CARBON DIOXIDE 21 mEQ/L (20-30); CHLORIDE 94 mEQ/L (98-107); CREATININE 0.8 mg/dL (0.7-1.2); GLOMERULAR FILTRATION RATE > 60 mL/min (>60); HEMOLYSIS 0; POTASSIUM 3.9 mEQ/L (3.4-4.9); SODIUM 135 mEQ/L (135-145); TOTAL PROTEIN 9.1 g/dL (6.6-8.7)
[2016-12-12 09:26] LABS: BAND NEUTROPHILS % (MANUAL) 0 % (0-8); BASOPHILS % (MANUAL) 0 % (0-2); EOSINOPHILS % (MANUAL) 0 % (0-3); LYMPHOCYTES % (MANUAL) 5 % (20-45); NEUTROPHILS % (MANUAL) 90 % (45-75); PLATELET ESTIMATE ADEQUATE; TOTAL CELLS COUNTED 100
[2016-12-12 09:27] LABS: ANISOCYTOSIS 2+; HYPOCHROMASIA 1+; MICROCYTES 1+; PLATELET MORPHOLOGY NORMAL
[2016-12-12] MEDS: Depakote ER 500mg tab ORAL SCH ×3 (09:51→18:01)
--- NOTE | 2016-12-12 10:32 | Pulmonology Progress Note ---
Assessment/Plan Problems: (1) Acute respiratory failure (2) Anemia (3) Bipolar disorder (4) Schizophrenia (5) History of CVA (cerebrovascular accident) Assessment/Plan cxr LLL infiltrate titrate fio2 to sat of 92% respiratory treatment antitussives sputum for c/s add antibiotics ID consult Psych to see for agitation Subjective Interval Events: transferrerd last night to [facility] for increased shortness of breath, on bipap Allergies: Uncoded Allergies: PCN (Allergy, Unknown, 12/08/16) Objective Last 24 Hour Vital Signs Date Time Temp Pulse Resp B/P Pulse Ox O2 Delivery O2 Flow Rate FiO2 12/12/16 08:35 95 23 97 Facial 80 12/12/16 08:00 100.8 103 24 134/88 98 Bi-pap 12/12/16 07:12 106 30 Bi-pap 100 12/12/16 07:12 106 30 99 Facial 100 12/12/16 04:53 99 29 97 Facial 100 12/12/16 04:47 98.5 102 25 134/88 93 Non-Rebreather 15.0 12/12/16 04:00 97 20 126/74 97 Ambu-Bag 4.0 12/12/16 01:24 99.4 101 30 118/76 97 Non-Rebreather 15.0 12/12/16 00:09 102.2 12/12/16 00:00 96.7 95 20 118/76 97 Ambu-Bag 4.0 12/11/16 23:42 118 12/11/16 20:19 106 15 Non-Rebreather 15.0 100 12/11/16 20:00 100.5 108 20 134/98 98 Nasal Cannula 2.0 12/11/16 15:46 97.1 104 18 138/63 92 Room Air 12/11/16 11:36 97.3 98 18 134/83 90 Room Air Intake and Output 12/11/16 12/12/16 19:00 07:00 Intake Total 1380 ml 1030 ml Output Total 275 ml Balance 1380 ml 755 ml Intake Oral 480 ml 580 ml IV Total 900 ml 450 ml Output Urine Total 275 ml # Voids 5 Objective General Appearance: WD/WN HEENT: normocephalic, atraumatic Respiratory/Chest: chest wall non-tender, lungs rhonchi Cardiovascular: normal peripheral pulses, normal rate Abdomen: normal bowel sounds, soft, non tender, no organomegaly Extremities: no cyanosis, no clubbing Skin: no rash Laboratory Tests 12/12/16 05:20: White Blood Count 17.7#H, Red Blood Count 4.12L, Hemoglobin 9.3L, Hematocrit 31.8L, Mean Corpuscular Volume 77L, Mean Corpuscular Hemoglobin 22.6L, Mean Corpuscular Hemoglobin Concent 29.3L, Red Cell Distribution Width 21.9H, Platelet Count 271, Mean Platelet Volume 4.8L, Neutrophils (%) (Auto) , Lymphocytes (%) (Auto) , Monocytes (%) (Auto) , Eosinophils (%) (Auto) , Basophils (%) (Auto) , Differential Total Cells Counted 100, Neutrophils % ( Manual) 90H, Lymphocytes % (Manual) 5L, Monocytes % (Manual) 5, Eosinophils % ( Manual) 0, Basophils % (Manual) 0, Band Neutrophils 0, Platelet Estimate Adequate, Platelet Morphology Normal, Hypochromasia 1+, Anisocytosis 2+, Microcytosis 1+, Sodium Level 135, Potassium Level 3.9, Chloride Level 94L, Carbon Dioxide Level 21, Anion Gap 20H, Blood Urea Nitrogen 12, Creatinine 0.8# , Estimat Glomerular Filtration Rate > 60, Glucose Level 149H, Calcium Level 9.3 , Total Bilirubin 0.7, Aspartate Amino Transf (AST/SGOT) 18, Alanine Aminotransferase (ALT/SGPT) 18, Alkaline Phosphatase 222H, Pro-B-Type Natriuretic Peptide 5617H, Total Protein 9.1H, Albumin 2.1L, Globulin 7.0, Albumin/Globulin Ratio 0.3L Current Medications Medications (Trade) Dose Ordered Sig/[place] Route PRN Reason Start Time Stop Time Status Last Admin Dose Admin Acetaminophen (Tylenol) 650 mg Q4H PRN ORAL fever 12/08/16 18:30 01/07/17 18:29 12/12/16 09:51 Al Hydroxide/Mg Hydroxide (Mylanta II) 30 ml Q6H PRN ORAL dyspepsia 12/08/16 18:30 01/07/17 18:29 Albuterol/ Ipratropium (DuoNeb 0.5-3(2.5)mg/3ml) 3 ml Q6HRT PRN HHN sob 12/11/16 18:30 12/16/16 18:29 Dextrose (Dextrose 50%) STAT PRN IV Hypoglycemia 12/08/16 18:30 01/07/17 18:29 Dextrose (Dextrose 50%) STAT PRN IV Hypoglycemia 12/09/16 15:00 01/08/17 14:59 Divalproex Sodium 500 mg 500 mg TID ORAL 12/09/16 18:00 01/08/17 17:59 12/12/16 09:51 Haloperidol Lactate 5 mg 5 mg Q4HR PRN IVPB Agitation 12/11/16 19:15 01/10/17 19:14 Hydroxyzine HCl (Atarax) 50 mg Q6H PRN ORAL Itching 12/09/16 14:30 01/08/17 14:29 Insulin Aspart (NovoLOG) BEFORE MEALS AND HS SUBQ 12/09/16 16:30 01/08/17 16:29 12/12/16 06:22 Levothyroxine Sodium (Synthroid) 25 mcg DAILY@0630 ORAL 12/11/16 06:30 01/10/17 06:29 12/12/16 06:23 Lorazepam (Ativan 2mg/ml 1ml) 0.5 mg Q4H PRN IV For Anxiety 12/08/16 18:30 12/15/16 18:29 12/11/16 19:01 Morphine Sulfate (Morphine Sulfate) 1 mg Q4H PRN IVP For Pain 12/08/16 18:30 12/15/16 18:29 12/11/16 18:29 Ondansetron HCl (Zofran) 4 mg Q6H PRN IVP Nausea & Vomiting 12/08/16 18:30 01/07/17 18:29 Piperacillin Sod/ Tazobactam Sod/ Sodium Chloride (Zosyn/Sodium Chloride) 110 ml @ 27.5 mls/hr EVERY 6 HOURS IVPB 12/12/16 12:00 12/19/16 11:59 UNV Polyethylene Glycol (Miralax) 17 gm HSPRN PRN ORAL Constipation 12/08/16 18:30 01/07/17 18:29 Promethazine HCl/ Codeine (Phenergan with Codeine) 5 ml Q4H PRN ORAL For Cough 12/11/16 18:30 01/10/17 18:29 Sodium Chloride (Sodium Chloride 1000ml bag) 1,000 ml @ 75 mls/hr [id number] IV 12/09/16 15:15 01/08/17 15:14 12/12/16 09:52 Vancomycin HCl (Vanco rx to dose) 1 ea DAILY PRN MISC Per rx protocol 12/12/16 10:30 01/11/17 10:29 UNV Zolpidem Tartrate (Ambien) 5 mg HSPRN PRN ORAL Insomnia 12/08/16 18:30 01/07/17 18:29 BRAXTON SUAREZ Dec 12, 2016 10:32
--- NOTE | 2016-12-12 10:49 | Diagnostic Imaging Report ---
Indication: SOB Technique: One view of the chest Comparison: none Findings: The heart is upper limits normal in size. There is mild interstitial congestion. No focal airspace consolidation. Pleural spaces are clear. Impression: Mild bilateral pulmonary interstitial congestion This agrees with the preliminary interpretation provided overnight by [facility] teleradiology service.
[2016-12-12] MEDS ORDERED: Piperacillin/Tazobactam 3.375 GM in NS 110 ML IVPB SCH (12:00)
[2016-12-12 12:09] LABS: OTHERS PATHOLOGIST COMMENT
--- NOTE | 2016-12-12 12:31 | Wound Nurse Progress Note ---
Wound RN Progress Note Wound Consult upon assessment also noted dry scabs to scalp , top of head area. dry / intact. TIMA JARAMILLO Dec 12, 2016 12:31
[2016-12-12] MEDS: Vancomycin 1gm/D5W 275ml IVPB SCH ×2 (12:54)
--- NOTE | 2016-12-12 13:37 | Diagnostic Imaging Report ---
Indication: DYSPNEA Technique: One view of the chest Comparison: none Findings: Again demonstrated are bilateral basilar atelectatic changes, increased on the left. Generalized interstitial congestion may have improved slightly, allowing for technical differences. Pleural spaces are probably clear. The heart remains upper limits normal in size Impression: Increased basilar atelectatic changes. Perhaps slight improvement in previously demonstrated pulmonary interstitial congestion, over one day
--- NOTE | 2016-12-12 14:12 | GI Initial Consult Note ---
History of Present Illness General Date patient seen: Dec 12, 2016 Time patient seen: 14:04 Reason for Hospitalization: Abnormal Labs Referring physician: BRAXTON SUAREZ Reason for Consultation: ANEMIA Present Illness HPI 56Y/O male with PMH of DM, HTN, hx of CVA, anemia, CKD, schizophrenia was sent from SNF for "low Hb". Hb 7.9 from 1 week ago in SNF IN ED HH - 7.6/26.8 patient received 2 u PRBC in ED BS -300 ; no elevated AG, stable K and bicarbonate, unlikely DKA pulse oximetry was 91% on RA Na-130 patient was admitted for further management GI Consult. HPI as noted above. GI consulted for management of anemia. Pt seen on floor, awake, alert with AMS currently on BIPAP. He presents today with leukocytosis, anemia and elevated alkaline phosphatase. Unknown history of any endoscopic procedures. No active N/V/D reported by RN. Home Meds Reported Medications Ondansetron* (ZOFRAN*) 4 Mg Tablet, 4 MG ORAL Q6H Y for Nausea & Vomiting, TAB 12/08/16 Acetaminophen With Codeine (T#3) (TYLENOL WITH CODEINE #3 TABLET) Y Tab, 1 TAB ORAL Q6HR Y for For Pain, TAB 17 Ascorbic Acid* (VITAMIN C*) 500 Mg Tablet, 500 MG ORAL DAILY, #30 TAB 0 Refills 12/08/16 Acetaminophen (Acetaminophen) 650 Mg Supp.rect, 650 MG OH Q4HR Y for For Pain, SUPP 0 Refills 12/08/16 Trazodone* (TRAZODONE*) 150 Mg Tablet, 75 MG ORAL BEDTIME, TAB 17 Simvastatin (ZOCOR) 20 Mg Tablet, 20 MG ORAL BEDTIME, TAB 12/08/17 Sennosides (SENNA) 8.6 Mg Tablet, 2 TAB PO BEDTIME, TAB 12/08/17 Temazepam* (RESTORIL*) 15 Mg Capsule, 15 MG ORAL BEDTIME Y for Insomnia, CAP 12/08/16 Amlodipine Besylate (Norvasc) 10 Mg Tablet, 10 MG ORAL DAILY, TAB 17 Multivitamins* (MULTIVITAMINS*) 1 Each Tablet, 1 TAB ORAL DAILY, TAB 0 Refills 17 Magnesium Hydroxide* (MILK OF MAGNESIA*) 400 Mg/5 Ml Oral.susp, 30 ML ORAL DAILY Y for Constipation, ML 12/08/16 Glipizide* (GLUCOTROL*) 5 Mg Tablet, 5 MG ORAL ACBREAKFAST, #10 TAB 0 Refills 12/08/16 Na Phos,M-B/Na Phos,Di-Ba* (FLEET ENEMA*) 133 Ml Enema, 133 ML RECTAL DAILY, ML 0 Refills 12/08/16 Ferrous Sulfate* (FERROUS SULFATE*) 325 Mg Tablet, 325 MG ORAL DAILY, #30 TAB 0 Refills 12/08/16 Bisacodyl (DULCOLAX) 10 Mg Supp.rect, 10 MG RC NEEDED Y for Constipation, SUPP 12/08/16 Divalproex Sodium* (DEPAKOTE ER*) 500 Mg Tab.er.24h, 500 MG ORAL TID, TAB 12/08/16 Docusate Sodium* (COLACE*) 100 Mg Capsule, 100 MG ORAL DAILY, CAP 12/08/16 Benazepril Hcl* (BENAZEPRIL HCL*) 40 Mg Tablet, 40 MG ORAL DAILY, TAB 12/08/16 Aspirin* (ASPIRIN*) 81 Mg Tab.chew, 81 MG ORAL DAILY, TAB 12/08/16 Med list reviewed/reconciled: Yes Allergies: Coded Allergies: PENICILLINS (Verified Allergy, Unknown, 12/12/16) Uncoded Allergies: PCN (Allergy, Unknown, 12/08/16) Patient History Limited by: medical condition History Provided By: Medical Record [facility] Narrative (1) HTN (hypertension) (2) CKD (chronic kidney disease) (3) Anemia (4) Bipolar disorder (5) Schizophrenia (6) History of CVA (cerebrovascular accident) Review of Systems All Other Systems: limited Physical Exam Vital Signs Date Time Temp Pulse Resp B/P Pulse Ox O2 Delivery O2 Flow Rate FiO2 12/08/16 16:22 98.1 90 22 124/70 91 Room Air 12/11/16 20:00 2.0 12/11/16 20:19 100 Sp02 EP Interpretation: reviewed Labs Laboratory Tests Test 12/12/16 05:20 White Blood Count 17.7 K/UL (4.8-10.8) #H Red Blood Count 4.12 M/UL (4.70-6.10) L Hemoglobin 9.3 G/DL (14.2-18.0) L Hematocrit 31.8 % (42.0-52.0) L Mean Corpuscular Volume 77 FL (80-99) L Mean Corpuscular Hemoglobin 22.6 PG (27.0-31.0) L Mean Corpuscular Hemoglobin Concent 29.3 G/DL (32.0-36.0) L Red Cell Distribution Width 21.9 % (11.6-14.8) H Platelet Count 271 K/UL (150-450) Mean Platelet Volume 4.8 FL (6.5-10.1) L Neutrophils (%) (Auto) % (45.0-75.0) Lymphocytes (%) (Auto) % (20.0-45.0) Monocytes (%) (Auto) % (1.0-10.0) Eosinophils (%) (Auto) % (0.0-3.0) Basophils (%) (Auto) % (0.0-2.0) Differential Total Cells Counted 100 Neutrophils % (Manual) 90 % (45-75) H Lymphocytes % (Manual) 5 % (20-45) L Monocytes % (Manual) 5 % (1-10) Eosinophils % (Manual) 0 % (0-3) Basophils % (Manual) 0 % (0-2) Band Neutrophils 0 % (0-8) Platelet Estimate Adequate Platelet Morphology Normal Hypochromasia 1+ Anisocytosis 2+ Microcytosis 1+ Sodium Level 135 mEQ/L (135-145) Potassium Level 3.9 mEQ/L (3.4-4.9) Chloride Level 94 mEQ/L (98-107) L Carbon Dioxide Level 21 mEQ/L (20-30) Anion Gap 20 (5-15) H Blood Urea Nitrogen 12 mg/dL (7-23) Creatinine 0.8 mg/dL (0.7-1.2) # Estimat Glomerular Filtration Rate > 60 mL/min (>60) Glucose Level 149 mg/dL (74-106) H Calcium Level 9.3 mg/dL (8.6-10.2) Total Bilirubin 0.7 mg/dL (0.0-1.2) Aspartate Amino Transf (AST/SGOT) 18 U/L (5-40) Alanine Aminotransferase (ALT/SGPT) 18 U/L (3-41) Alkaline Phosphatase 222 U/L (40-129) H Pro-B-Type Natriuretic Peptide 5617 pg/mL (0-125) H Total Protein 9.1 g/dL (6.6-8.7) H Albumin 2.1 g/dL (3.5-5.2) L Globulin 7.0 g/dL Albumin/Globulin Ratio 0.3 (1.0-2.7) L General Appearance: alert, mild distress Head: normocephalic EENT: normal ENT inspection Neck: supple Respiratory: other - BIPAP Cardiovascular: normal rate Gastrointestinal: normal inspection, non tender, soft Rectal: deferred Neurologic: normal inspection, alert, oriented x3, responsive Psychiatric: normal inspection, judgement/insight normal, memory normal Skin: normal inspection, normal color, no rash Lymphatic: normal inspection, no adenopathy Current Medications Current Medications Medications (Trade) Dose Ordered Sig/[place] Route PRN Reason Start Time Stop Time Status Last Admin Dose Admin Acetaminophen (Tylenol) 650 mg Q4H PRN ORAL fever 12/08/16 18:30 01/07/17 18:29 12/12/16 09:51 Al Hydroxide/Mg Hydroxide (Mylanta II) 30 ml Q6H PRN ORAL dyspepsia 12/08/16 18:30 01/07/17 18:29 Albuterol/ Ipratropium (DuoNeb 0.5-3(2.5)mg/3ml) 3 ml Q6HRT PRN HHN sob 12/11/16 18:30 12/16/16 18:29 Aztreonam/Dextrose (Azactam/D5W) 55 ml @ 110 mls/hr EVERY 8 HOURS IVPB 12/12/16 14:00 12/19/16 13:59 Dextrose (Dextrose 50%) STAT PRN IV Hypoglycemia 12/09/16 15:00 01/08/17 14:59 Divalproex Sodium 500 mg 500 mg TID ORAL 12/09/16 18:00 01/08/17 17:59 12/12/16 12:59 Haloperidol Lactate (Haldol) 5 mg Q4HR PRN IVPB Agitation 12/11/16 19:15 01/10/17 19:14 Hydroxyzine HCl (Atarax) 50 mg Q6H PRN ORAL Itching 12/09/16 14:30 01/08/17 14:29 Insulin Aspart (NovoLOG) BEFORE MEALS AND HS SUBQ 12/09/16 16:30 01/08/17 16:29 12/12/16 12:47 Levothyroxine Sodium (Synthroid) 25 mcg DAILY@0630 ORAL 12/11/16 06:30 01/10/17 06:29 12/12/16 06:23 Lorazepam (Ativan 2mg/ml 1ml) 0.5 mg Q4H PRN IV For Anxiety 12/08/16 18:30 12/15/16 18:29 12/11/16 19:01 Morphine Sulfate (Morphine Sulfate) 1 mg Q4H PRN IVP For Pain 12/08/16 18:30 12/15/16 18:29 12/11/16 18:29 Ondansetron HCl (Zofran) 4 mg Q6H PRN IVP Nausea & Vomiting 12/08/16 18:30 01/07/17 18:29 Polyethylene Glycol (Miralax) 17 gm HSPRN PRN ORAL Constipation 12/08/16 18:30 01/07/17 18:29 Promethazine HCl/ Codeine (Phenergan with Codeine) 5 ml Q4H PRN ORAL For Cough 12/11/16 18:30 01/10/17 18:29 Sodium Chloride (Sodium Chloride 1000ml bag) 1,000 ml @ 75 mls/hr [id number] IV 12/09/16 15:15 01/08/17 15:14 12/12/16 09:52 Vancomycin HCl 1 ea 1 ea DAILY PRN MISC Per rx protocol 12/12/16 10:30 01/11/17 10:29 Vancomycin HCl 1 gm/Dextrose 275 ml @ 183.708 mls/hr Q12HR@0000,1200 IVPB 12/12/16 12:00 12/17/16 11:59 12/12/16 12:54 Zolpidem Tartrate (Ambien) 5 mg HSPRN PRN ORAL Insomnia 12/08/16 18:30 01/07/17 18:29 GI: Plan Problems: (1) Leukocytosis (2) History of CVA (cerebrovascular accident) (3) Schizophrenia (4) Bipolar disorder (5) Anemia Plan defer GI procedures at this time, pt unstable on bipap anemia work up monitor H&H, transfuse prn OB stool r/o GI bleed uncollected ppi regular diet fu labs Discussed with Dr. Juares. Thank you for referring this patient. Veronica Woods N.P. Dec 12, 2016 14:12
--- NOTE | 2016-12-12 14:44 | Cardiology Report ---
APPROVED REPORT EXAM: Two-dimensional and M-mode echocardiogram with Doppler and color Doppler. INDICATION Left Ventricular Function M-Mode DIMENSIONS IVSd1.5 (0.7-1.1cm)Left Atrium (MM)4.6 (1.6-4.0cm) LVDd4.7 (3.5-5.6cm)Aortic Root3.1 (2.0-3.7cm) PWd1.5 (0.7-1.1cm)Aortic Cusp Exc.2.6 (1.5-2.0cm) LVDs3.2 (2.5-4.0cm) PWs1.5 cm Normal left ventricular chamber size, systolic function and wall motion. Left ventricular ejection fraction estimated to be 55 %. Mild left ventricular hypertrophy. Trivial pericardial effusion. All other cardiac chamber sizes are within normal limits. Focal aortic valve sclerosis with adequate cusp excursion. Thickened mitral valve leaflets with normal excursion. Mitral annulus and aortic root calcification. Pulmonic valve not well visualized. Normal tricuspid valve structure. IVC dilated at 2.4 cm without physiologic collapse, estimated RAP is 15 mmHg. A color flow and spectral Doppler study was performed and revealed: No aortic regurgitation. Trace mitral regurgitation. Mitral inflow velocities indicates normal left ventricular diastolic function. Trace tricuspid regurgitation. Tricuspid systolic velocities suggests peak right ventricular systolic pressure of 29 mmHg. Trace pulmonic regurgitation present.
[2016-12-12] MEDS: Aztreonam 1gm/D5W 55ml IVPB SCH ×2 (14:55)
[2016-12-12] MEDS: Pantoprazole Inj IVP SCH (18:00)
[2016-12-12] MEDS: LORazepam Inj 2mg/ml 1ml IV PRN (21:04)
--- NOTE | 2016-12-12 21:56 | Cardiology Progress Note ---
Assessment/Plan Assessment/Plan The patient is seen and examined, full consult note is dictated. Objective Last 24 Hour Vital Signs Date Time Temp Pulse Resp B/P Pulse Ox O2 Delivery O2 Flow Rate FiO2 12/12/16 21:14 97 23 99 Facial 45 12/12/16 20:27 97.7 99 20 122/79 Bi-pap 45 12/12/16 19:16 101 23 94 Facial 45 12/12/16 19:15 104 30 Bi-pap 45 12/12/16 16:45 78 19 97 Facial 45 12/12/16 16:00 97.3 88 20 109/70 97 Bi-pap 12/12/16 14:31 77 20 96 Facial 45 12/12/16 12:37 88 22 97 Facial 45 12/12/16 12:00 93 12/12/16 11:12 98.6 94 18 102/64 97 Bi-pap 12/12/16 10:50 98.6 12/12/16 10:36 94 19 97 Facial 50 12/12/16 08:35 95 23 97 Facial 80 12/12/16 08:00 96 12/12/16 08:00 100.8 103 24 134/88 98 Bi-pap 12/12/16 07:12 106 30 Bi-pap 100 12/12/16 07:12 106 30 99 Facial 100 12/12/16 04:53 99 29 97 Facial 100 12/12/16 04:47 98.5 102 25 134/88 93 Non-Rebreather 15.0 12/12/16 04:00 97 20 126/74 97 Ambu-Bag 4.0 12/12/16 01:24 99.4 101 30 118/76 97 Non-Rebreather 15.0 12/12/16 00:00 96.7 95 20 118/76 97 Ambu-Bag 4.0 12/11/16 23:42 118 Intake and Output 12/11/16 12/12/16 19:00 07:00 Intake Total 1380 ml 1105 ml Output Total 275 ml Balance 1380 ml 830 ml Intake Oral 480 ml 580 ml IV Total 900 ml 525 ml Output Urine Total 275 ml # Voids 5 Laboratory Tests Test 12/12/16 05:20 White Blood Count 17.7 K/UL (4.8-10.8) #H Red Blood Count 4.12 M/UL (4.70-6.10) L Hemoglobin 9.3 G/DL (14.2-18.0) L Hematocrit 31.8 % (42.0-52.0) L Mean Corpuscular Volume 77 FL (80-99) L Mean Corpuscular Hemoglobin 22.6 PG (27.0-31.0) L Mean Corpuscular Hemoglobin Concent 29.3 G/DL (32.0-36.0) L Red Cell Distribution Width 21.9 % (11.6-14.8) H Platelet Count 271 K/UL (150-450) Mean Platelet Volume 4.8 FL (6.5-10.1) L Neutrophils (%) (Auto) % (45.0-75.0) Lymphocytes (%) (Auto) % (20.0-45.0) Monocytes (%) (Auto) % (1.0-10.0) Eosinophils (%) (Auto) % (0.0-3.0) Basophils (%) (Auto) % (0.0-2.0) Differential Total Cells Counted 100 Neutrophils % (Manual) 90 % (45-75) H Lymphocytes % (Manual) 5 % (20-45) L Monocytes % (Manual) 5 % (1-10) Eosinophils % (Manual) 0 % (0-3) Basophils % (Manual) 0 % (0-2) Band Neutrophils 0 % (0-8) Platelet Estimate Adequate Platelet Morphology Normal Hypochromasia 1+ Anisocytosis 2+ Microcytosis 1+ Sodium Level 135 mEQ/L (135-145) Potassium Level 3.9 mEQ/L (3.4-4.9) Chloride Level 94 mEQ/L (98-107) L Carbon Dioxide Level 21 mEQ/L (20-30) Anion Gap 20 (5-15) H Blood Urea Nitrogen 12 mg/dL (7-23) Creatinine 0.8 mg/dL (0.7-1.2) # Estimat Glomerular Filtration Rate > 60 mL/min (>60) Glucose Level 149 mg/dL (74-106) H Calcium Level 9.3 mg/dL (8.6-10.2) Total Bilirubin 0.7 mg/dL (0.0-1.2) Aspartate Amino Transf (AST/SGOT) 18 U/L (5-40) Alanine Aminotransferase (ALT/SGPT) 18 U/L (3-41) Alkaline Phosphatase 222 U/L (40-129) H Pro-B-Type Natriuretic Peptide 5617 pg/mL (0-125) H Total Protein 9.1 g/dL (6.6-8.7) H Albumin 2.1 g/dL (3.5-5.2) L Globulin 7.0 g/dL Albumin/Globulin Ratio 0.3 (1.0-2.7) L CECE BRADLEY Dec 12, 2016 21:56
--- NOTE | 2016-12-12 23:03 | Consultation ---
Consult Note Consult Note ID Dic # [id number] REILLY DELGADO M.D. Dec 12, 2016 23:03
[2016-12-12] MEDS: Morphine Sulfate 2mg/ml Inj IVP PRN (23:17)
[2016-12-13] VITALS: BP 101/68
[2016-12-13] MEDS: Vancomycin 1gm/D5W 275ml IVPB SCH ×2
--- NOTE | 2016-12-13 02:45 | Consultation ---
DATE OF CONSULTATION: INFECTIOUS DISEASES CONSULTATION REQUESTING PHYSICIAN: Bill Roman M.D. REASON FOR CONSULTATION: Evaluation of the patient for pneumonia, leukocytosis, and antibiotic management. HISTORY OF PRESENT ILLNESS: The patient is a 56-year-old male with multiple medical problems listed below, who was admitted to this medical center for anemia. The patient was found to have respiratory distress. He was placed on BiPAP and Infectious Disease consultation has been requested for evaluation of the patient for pneumonia and leukocytosis. PAST MEDICAL HISTORY: 1. Diabetes. 2. Hypertension. 3. . 4. Anemia. 5. CKD. 6. Schizophrenia. MEDICATIONS: Aztreonam and vancomycin. ALLERGIES: Penicillin. SOCIAL HISTORY: Unknown. The patient is a poor historian. FAMILY HISTORY: Unknown. REVIEW OF SYSTEMS: Unobtainable. PHYSICAL EXAMINATION: VITAL SIGNS: Temperature 99.7 degrees, blood pressure 122/79, pulse 86, respiratory rate 18, and T-max 100.8 degrees. HEENT: Mild pale conjunctiva. NECK: No lymphadenopathy. CHEST: Coarse breathing sounds. HEART: S1 and S2. ABDOMEN: Soft and nontender. EXTREMITIES: No cyanosis at this time. NEUROLOGIC: Awake and lethargic. LABORATORY AND DIAGNOSTIC DATA: White blood cells 17, hemoglobin 9.3, and platelets 271,000. At the time of admission, the patient's blood glucose is 6.5. BUN 12 and creatinine 0.8. ALT and AST unremarkable. Alkaline phosphatase 122. Chest x-ray, increased basilar atelectasis. ASSESSMENT: The patient is a 56-year-old male with multiple medical problems, who has been admitted to this medical center. The patient was found to have leukocytosis, the source is unclear, possible aspiration pneumonia, rule out bacteremia, and rule out urinary tract infection. PLAN: 1. We will start the patient on aztreonam and vancomycin. 2. Monitor CBC. 3. Monitor BMP. 4. Monitor cultures (blood and urine). 5. Monitor chest x-ray. Based on the patient's clinical course, we will do further recommendations. Thank you Dr. Roman for allowing me to participate in the care of this patient. I will follow the patient with you during this hospitalization. John Campbell M.D. DR: Steffany JOB#: [id number] CC:
--- NOTE | 2016-12-13 03:15 | Consultation ---
DATE OF CONSULTATION: HISTORY OF PRESENT ILLNESS: The patient has a history of multiple medical problems including diabetes mellitus, hypertension, schizophrenia, and CVA who has been admitted to the hospital due to anemia. The patient had units of red blood cells in the ED. During evaluation, he has the BiPAP on and the nurse was cleaning him. He was able to be engaged and answers questions. The patient denied any psychotic symptoms. He has received Haldol IM p.r.n. as needed for anxiety and agitation. He was a poor historian. PAST PSYCHIATRIC HISTORY: Diagnosed with schizophrenia and anxiety disorder and has been treated with antipsychotics. PAST MEDICAL HISTORY: Please see above. MENTAL STATUS EXAMINATION: The patient is alert and oriented times self and place. She presents with waxing and waning consciousness and at times confused. Mood is neutral during the evaluation, however, becomes agitated. Affect is constricted. Congruent mood. Thought process is concrete. Thought content, no suicidal or homicidal ideation. ASSESSMENT: [place] I Schizophrenia and delirium due to general medical condition. [place] II Deferred. [place] III As above. [place] IV Moderate. [place] V Global assessment of function is . PLAN: 1. We will change the Depakote ER to 1500 mg h.s. We will start the patient on Seroquel 25 mg t.i.d.. 2. We will continue the p.r.n. Ativan and Haldol. Dale Galicia M.D. DR: ERIC JOB#: [id number] CC:
[2016-12-13 04:00] VITALS: BP 96/64
[2016-12-13 05:48] LABS: INR 1.2 (0.9-1.1); PROTHROMBIN TIME 12.4 SEC (9.30-11.50)
[2016-12-13 06:07] LABS: ALANINE AMINOTRANSFERASE 15 U/L (3-41); ALBUMIN/GLOBULIN RATIO 0.2 (1.0-2.7); ANION GAP 18 (5-15); ASPARTATE AMINO TRANSFERASE 13 U/L (5-40); CALCIUM 8.6 mg/dL (8.6-10.2); CARBON DIOXIDE 20 mEQ/L (20-30); CHLORIDE 95 mEQ/L (98-107); CREATININE 0.6 mg/dL (0.7-1.2); GLOMERULAR FILTRATION RATE > 60 mL/min (>60); HEMOLYSIS 0; MAGNESIUM 1.9 mg/dL (1.7-2.5); MEAN CORPUSCULAR HEMOGLOBIN 22.5 PG (27.0-31.0); MEAN CORPUSCULAR VOLUME 75 FL (80-99); MEAN PLATELET VOLUME 4.6 FL (6.5-10.1); PHOSPHORUS 3.1 mg/dL (2.5-4.8); PLATELET COUNT 227 K/UL (150-450); POTASSIUM 3.4 mEQ/L (3.4-4.9); RED BLOOD COUNT 3.91 M/UL (4.70-6.10); RED CELL DISTRIBUTION WIDTH 21.4 % (11.6-14.8); SODIUM 133 mEQ/L (135-145); TOTAL PROTEIN 7.9 g/dL (6.6-8.7); WHITE BLOOD COUNT 10.6 K/UL (4.8-10.8)
[2016-12-13] MEDS: Morphine Sulfate 2mg/ml Inj IVP PRN ×3 (06:17→21:39)
[2016-12-13 06:21] LABS: FERRITIN 280 ng/mL (10-230)
[2016-12-13] MEDS: NovoLOG Insulin Flexpen SUBQ SCH ×4 (06:37→21:33)
[2016-12-13] MEDS: Levothyroxine 25mcg tab ORAL SCH (06:54)
[2016-12-13 08:00] VITALS: BP 118/79
[2016-12-13] MEDS: Aztreonam 1gm/D5W 55ml IVPB SCH ×6 (08:00→16:10)
[2016-12-13] MEDS: Pantoprazole Inj IVP SCH (09:00)
[2016-12-13] MEDS: LORazepam Inj 2mg/ml 1ml IV PRN (10:11)
--- NOTE | 2016-12-13 10:16 | GI Progress Note ---
Assessment/Plan Problems: (1) Schizophrenia ICD Codes: F20.9 - Schizophrenia, unspecified SNOMED: 37647650 (2) Anemia ICD Codes: D64.9 - Anemia, unspecified SNOMED: 823806005 Qualifiers: Qualified Codes: D64.9 - Anemia, unspecified (3) Leukocytosis ICD Codes: D72.829 - Elevated white blood cell count, unspecified SNOMED: 965842519, 145925307 (4) Acute respiratory failure ICD Codes: J96.00 - Acute respiratory failure, unspecified whether with hypoxia or hypercapnia SNOMED: [id number] Status: progressing Status Narrative Discussed with Dr. Juares. Assessment/Plan iron deficiency >> venofer x 1 stable H&H low T4 pt scheduled for EGD/colonoscopy to evaluate anemia requiring blood transfusion >> rescheduled to 12/15/16. - will begin prepping patient today due to poor compliancy >> maintain CLD today and tomorrow. - hold all blood thinners tomorrow. monitor H&H, transfuse prn OB stool r/o GI bleed uncollected ppi fu labs Subjective Gastrointestinal/Abdominal: Reports: no symptoms Objective Last 24 Hour Vital Signs Date Time Temp Pulse Resp B/P Pulse Ox O2 Delivery O2 Flow Rate FiO2 12/13/16 08:45 85 18 93 12/13/16 08:00 97.7 82 18 118/79 93 Nasal Cannula 5.0 12/13/16 07:01 91 20 93 12/13/16 07:01 91 20 Nasal Cannula 4.0 36 12/13/16 05:28 82 19 99 Facial 35 12/13/16 05:27 35 12/13/16 04:00 97.7 20 96/64 Bi-pap 12/13/16 03:17 80 17 97 Facial 45 12/13/16 01:11 82 23 98 Facial 45 12/13/16 00:00 97.2 20 101/68 Bi-pap 12/12/16 23:26 85 22 98 Facial 45 12/12/16 21:14 97 23 99 Facial 45 12/12/16 20:27 97.7 99 20 122/79 Bi-pap 45 12/12/16 19:16 101 23 94 Facial 45 12/12/16 19:15 104 30 Bi-pap 45 12/12/16 16:45 78 19 97 Facial 45 12/12/16 16:00 97.3 88 20 109/70 97 Bi-pap 12/12/16 14:31 77 20 96 Facial 45 12/12/16 12:37 88 22 97 Facial 45 12/12/16 12:00 93 12/12/16 11:12 98.6 94 18 102/64 97 Bi-pap 12/12/16 10:50 98.6 12/12/16 10:36 94 19 97 Facial 50 Intake and Output 12/12/16 12/13/16 19:00 07:00 Intake Total 1717.416 ml Balance 1717.416 ml Intake Oral 920 ml IV Total 797.416 ml # Voids 2 1 # Bowel Movements 1 1 Laboratory Tests Test 12/13/16 03:30 White Blood Count 10.6 K/UL (4.8-10.8) Red Blood Count 3.91 M/UL (4.70-6.10) L Hemoglobin 8.8 G/DL (14.2-18.0) L Hematocrit 29.3 % (42.0-52.0) L Mean Corpuscular Volume 75 FL (80-99) L Mean Corpuscular Hemoglobin 22.5 PG (27.0-31.0) L Mean Corpuscular Hemoglobin Concent 30.0 G/DL (32.0-36.0) L Red Cell Distribution Width 21.4 % (11.6-14.8) H Platelet Count 227 K/UL (150-450) Mean Platelet Volume 4.6 FL (6.5-10.1) L Neutrophils (%) (Auto) % (45.0-75.0) Lymphocytes (%) (Auto) % (20.0-45.0) Monocytes (%) (Auto) % (1.0-10.0) Eosinophils (%) (Auto) % (0.0-3.0) Basophils (%) (Auto) % (0.0-2.0) Reticulocyte Count 1.8 % (0.0-2.0) Prothrombin Time 12.4 SEC (9.30-11.50) H Prothromb Time International Ratio 1.2 (0.9-1.1) H Activated Partial Thromboplast Time 35 SEC (23-33) H Sodium Level 133 mEQ/L (135-145) L Potassium Level 3.4 mEQ/L (3.4-4.9) Chloride Level 95 mEQ/L (98-107) L Carbon Dioxide Level 20 mEQ/L (20-30) Anion Gap 18 (5-15) H Blood Urea Nitrogen 17 mg/dL (7-23) Creatinine 0.6 mg/dL (0.7-1.2) L Estimat Glomerular Filtration Rate > 60 mL/min (>60) Glucose Level 125 mg/dL (74-106) H Calcium Level 8.6 mg/dL (8.6-10.2) Phosphorus Level 3.1 mg/dL (2.5-4.8) Magnesium Level 1.9 mg/dL (1.7-2.5) Iron Level 16 ug/dL (59-158) L Total Iron Binding Capacity 111 ug/dL (250-400) L Percent Iron Saturation 14 % (15-50) L Unsaturated Iron Binding 95 ug/dL (112-346) L Ferritin 280 ng/mL (10-230) H Total Bilirubin 0.4 mg/dL (0.0-1.2) Aspartate Amino Transf (AST/SGOT) 13 U/L (5-40) Alanine Aminotransferase (ALT/SGPT) 15 U/L (3-41) Alkaline Phosphatase 175 U/L (40-129) H Total Protein 7.9 g/dL (6.6-8.7) Albumin 1.8 g/dL (3.5-5.2) L Globulin 6.1 g/dL Albumin/Globulin Ratio 0.2 (1.0-2.7) L Carcinoembryonic Antigen 2.2 ng/mL Vitamin B12 Level 682 pg/mL (211-946) Folate Pending Thyroid Stimulating Hormone (TSH) 9.340 uIU/mL (0.300-4.500) Free Thyroxine 0.69 ng/dL (0.86-1.85) L Height (Feet): 5 Height (Inches): 4.00 Weight (Pounds): 145 General Appearance: no apparent distress, alert Cardiovascular: normal rate Respiratory/Chest: normal breath sounds, no respiratory distress Abdominal Exam: normal bowel sounds, non tender, soft Veronica Woods N.P. Dec 13, 2016 10:16
[2016-12-13 12:00] VITALS: BP 115/76
--- NOTE | 2016-12-13 12:16 | Pulmonology Progress Note ---
Assessment/Plan Problems: (1) Acute respiratory failure (2) Anemia (3) Bipolar disorder (4) Schizophrenia (5) History of CVA (cerebrovascular accident) Assessment/Plan cxr LLL infiltrate titrate fio2 to sat of 92% respiratory treatment antitussives sputum for c/s add antibiotics ID consult appreciated low grade fever swallow study Psych to see for agitation Subjective ROS Limited/Unobtainable: No Constitutional: Reports: no symptoms HEENT: Repors: no symptoms Allergies: Coded Allergies: PENICILLINS (Verified Allergy, Unknown, 12/12/16) Uncoded Allergies: PCN (Allergy, Unknown, 12/08/16) Objective Last 24 Hour Vital Signs Date Time Temp Pulse Resp B/P Pulse Ox O2 Delivery O2 Flow Rate FiO2 12/13/16 10:45 78 18 94 12/13/16 08:45 85 18 93 12/13/16 08:00 97.7 82 18 118/79 93 Nasal Cannula 5.0 12/13/16 07:01 91 20 93 12/13/16 07:01 91 20 Nasal Cannula 4.0 36 12/13/16 05:28 82 19 99 Facial 35 12/13/16 05:27 35 12/13/16 04:00 97.7 20 96/64 Bi-pap 12/13/16 03:17 80 17 97 Facial 45 12/13/16 01:11 82 23 98 Facial 45 12/13/16 00:00 97.2 20 101/68 Bi-pap 12/12/16 23:26 85 22 98 Facial 45 12/12/16 21:14 97 23 99 Facial 45 12/12/16 20:27 97.7 99 20 122/79 Bi-pap 45 12/12/16 19:16 101 23 94 Facial 45 12/12/16 19:15 104 30 Bi-pap 45 12/12/16 16:45 78 19 97 Facial 45 12/12/16 16:00 97.3 88 20 109/70 97 Bi-pap 12/12/16 14:31 77 20 96 Facial 45 12/12/16 12:37 88 22 97 Facial 45 Intake and Output 12/12/16 12/13/16 19:00 07:00 Intake Total 1717.416 ml Balance 1717.416 ml Intake Oral 920 ml IV Total 797.416 ml # Voids 2 1 # Bowel Movements 1 1 Objective General Appearance: WD/WN HEENT: normocephalic, atraumatic Respiratory/Chest: chest wall non-tender, lungs rhonchi Cardiovascular: normal peripheral pulses, normal rate Abdomen: normal bowel sounds, soft, non tender, no organomegaly Extremities: no cyanosis, no clubbing Skin: no rash Laboratory Tests 12/13/16 03:30: White Blood Count 10.6, Red Blood Count 3.91L, Hemoglobin 8.8L, Hematocrit 29.3L , Mean Corpuscular Volume 75L, Mean Corpuscular Hemoglobin 22.5L, Mean Corpuscular Hemoglobin Concent 30.0L, Red Cell Distribution Width 21.4H, Platelet Count 227, Mean Platelet Volume 4.6L, Neutrophils (%) (Auto) , Lymphocytes (%) (Auto) , Monocytes (%) (Auto) , Eosinophils (%) (Auto) , Basophils (%) (Auto) , Reticulocyte Count 1.8, Prothrombin Time 12.4H, Prothromb Time International Ratio 1.2H, Activated Partial Thromboplast Time 35H , Sodium Level 133L, Potassium Level 3.4, Chloride Level 95L, Carbon Dioxide Level 20, Anion Gap 18H, Blood Urea Nitrogen 17, Creatinine 0.6L, Estimat Glomerular Filtration Rate > 60, Glucose Level 125H, Calcium Level 8.6, Phosphorus Level 3.1, Magnesium Level 1.9, Iron Level 16L, Total Iron Binding Capacity 111L, Percent Iron Saturation 14L, Unsaturated Iron Binding 95L, Ferritin 280H, Total Bilirubin 0.4, Aspartate Amino Transf (AST/SGOT) 13, Alanine Aminotransferase (ALT/SGPT) 15, Alkaline Phosphatase 175H, Total Protein 7.9, Albumin 1.8L, Globulin 6.1, Albumin/Globulin Ratio 0.2L, Carcinoembryonic Antigen 2.2, Vitamin B12 Level 682, Folate [Pending], Thyroid Stimulating Hormone (TSH) 9.340H, Free Thyroxine 0.69L Current Medications Medications (Trade) Dose Ordered Sig/[place] Route PRN Reason Start Time Stop Time Status Last Admin Dose Admin Acetaminophen (Tylenol) 650 mg Q4H PRN ORAL fever 12/08/16 18:30 01/07/17 18:29 12/12/16 09:51 Al Hydroxide/Mg Hydroxide (Mylanta II) 30 ml Q6H PRN ORAL dyspepsia 12/08/16 18:30 01/07/17 18:29 Albuterol/ Ipratropium (DuoNeb 0.5-3(2.5)mg/3ml) 3 ml Q6HRT PRN HHN sob 12/11/16 18:30 12/16/16 18:29 Aztreonam 1 gm/ Dextrose 55 ml @ 110 mls/hr Q8H IVPB 12/13/16 08:00 12/20/16 07:59 12/13/16 08:00 Dextrose STAT PRN IV Hypoglycemia 12/09/16 15:00 01/08/17 14:59 Divalproex Sodium (Depakote ER) 1,500 mg BEDTIME ORAL 12/13/16 21:00 01/12/17 20:59 Haloperidol Lactate (Haldol) 5 mg Q4HR PRN IVPB Agitation 12/11/16 19:15 01/10/17 19:14 Hydroxyzine HCl (Atarax) 50 mg Q6H PRN ORAL Itching 12/09/16 14:30 01/08/17 14:29 Insulin Aspart (NovoLOG) BEFORE MEALS AND HS SUBQ 12/09/16 16:30 01/08/17 16:29 12/13/16 12:01 Iron Sucrose/ Sodium Chloride (Venofer/Sodium Chloride) 60 ml @ 240 mls/hr ONCE ONCE IVPB 12/13/16 21:00 12/13/16 21:14 Levothyroxine Sodium (Synthroid) 25 mcg DAILY@0630 ORAL 12/11/16 06:30 01/10/17 06:29 12/13/16 06:54 Lorazepam (Ativan 2mg/ml 1ml) 0.5 mg Q4H PRN IV For Anxiety 12/08/16 18:30 12/15/16 18:29 12/13/16 10:11 Morphine Sulfate (Morphine Sulfate) 1 mg Q4H PRN IVP For Pain 12/08/16 18:30 12/15/16 18:29 12/13/16 06:17 Ondansetron HCl (Zofran) 4 mg Q6H PRN IVP Nausea & Vomiting 12/08/16 18:30 01/07/17 18:29 Pantoprazole (Protonix) 40 mg DAILY IVP 12/12/16 16:00 01/11/17 15:59 12/13/16 09:00 Polyethylene Glycol (Miralax) 17 gm HSPRN PRN ORAL Constipation 12/08/16 18:30 01/07/17 18:29 Promethazine HCl/ Codeine (Phenergan with Codeine) 5 ml Q4H PRN ORAL For Cough 12/11/16 18:30 01/10/17 18:29 Quetiapine Fumarate 25 mg 25 mg TID ORAL 12/13/16 09:00 01/12/17 08:59 Sodium Chloride (Sodium Chloride 1000ml bag) 1,000 ml @ 75 mls/hr [id number] IV 12/09/16 15:15 01/08/17 15:14 12/12/16 23:18 Vancomycin HCl 1 ea 1 ea DAILY PRN MISC Per rx protocol 12/12/16 10:30 01/11/17 10:29 Vancomycin HCl/ Dextrose (Vancomycin/D5W) 275 ml @ 183.708 mls/hr Q12HR@0000,1200 IVPB 12/12/16 12:00 12/17/16 11:59 12/13/16 00:00 Zolpidem Tartrate (Ambien) 5 mg HSPRN PRN ORAL Insomnia 12/08/16 18:30 01/07/17 18:29 BRAXTON SUAREZ Dec 13, 2016 12:16
--- NOTE | 2016-12-13 12:54 | Infectious Diseases Prog Note ---
Assessment/Plan Assessment/Plan A: The patient is a 56-year-old male with SP leukocytosis possible aspiration pneumonia Respiratory distress. Chest x-ray, increased basilar atelectasis. Diabetes Hypertension Anemia. CKD. Schizophrenia PLAN: Cont on aztreonam d# 2 / 7 and Flagayl d# 1 / 7 DC vancomycin Monitor CBC. Monitor BMP. Monitor cultures (blood and urine). Monitor chest x-ray Subjective Constitutional: Denies: anorexia, chills, drenching sweats, fatigue, fever, no symptoms, other Allergies: Coded Allergies: PENICILLINS (Verified Allergy, Unknown, 12/12/16) Uncoded Allergies: PCN (Allergy, Unknown, 12/08/16) Objective Vital Signs Last 24 Hour Vital Signs Date Time Temp Pulse Resp B/P Pulse Ox O2 Delivery O2 Flow Rate FiO2 12/13/16 12:30 87 18 93 12/13/16 12:00 98.2 89 19 115/76 94 Nasal Cannula 5.0 12/13/16 10:45 78 18 94 12/13/16 08:45 85 18 93 12/13/16 08:00 97.7 82 18 118/79 93 Nasal Cannula 5.0 12/13/16 07:01 91 20 93 12/13/16 07:01 91 20 Nasal Cannula 4.0 36 12/13/16 05:28 82 19 99 Facial 35 12/13/16 05:27 35 12/13/16 04:00 97.7 20 96/64 Bi-pap 12/13/16 03:17 80 17 97 Facial 45 12/13/16 01:11 82 23 98 Facial 45 12/13/16 00:00 97.2 20 101/68 Bi-pap 12/12/16 23:26 85 22 98 Facial 45 12/12/16 21:14 97 23 99 Facial 45 12/12/16 20:27 97.7 99 20 122/79 Bi-pap 45 12/12/16 19:16 101 23 94 Facial 45 12/12/16 19:15 104 30 Bi-pap 45 12/12/16 16:45 78 19 97 Facial 45 12/12/16 16:00 97.3 88 20 109/70 97 Bi-pap 12/12/16 14:31 77 20 96 Facial 45 Height (Feet): 5 Height (Inches): 4.00 Weight (Pounds): 145 HEENT: anicteric Respiratory/Chest: normal breath sounds Cardiovascular: regularly irregular Abdomen: no organomegaly Laboratory Tests Test 12/13/16 03:30 White Blood Count 10.6 K/UL (4.8-10.8) Red Blood Count 3.91 M/UL (4.70-6.10) L Hemoglobin 8.8 G/DL (14.2-18.0) L Hematocrit 29.3 % (42.0-52.0) L Mean Corpuscular Volume 75 FL (80-99) L Mean Corpuscular Hemoglobin 22.5 PG (27.0-31.0) L Mean Corpuscular Hemoglobin Concent 30.0 G/DL (32.0-36.0) L Red Cell Distribution Width 21.4 % (11.6-14.8) H Platelet Count 227 K/UL (150-450) Mean Platelet Volume 4.6 FL (6.5-10.1) L Neutrophils (%) (Auto) % (45.0-75.0) Lymphocytes (%) (Auto) % (20.0-45.0) Monocytes (%) (Auto) % (1.0-10.0) Eosinophils (%) (Auto) % (0.0-3.0) Basophils (%) (Auto) % (0.0-2.0) Reticulocyte Count 1.8 % (0.0-2.0) Prothrombin Time 12.4 SEC (9.30-11.50) H Prothromb Time International Ratio 1.2 (0.9-1.1) H Activated Partial Thromboplast Time 35 SEC (23-33) H Sodium Level 133 mEQ/L (135-145) L Potassium Level 3.4 mEQ/L (3.4-4.9) Chloride Level 95 mEQ/L (98-107) L Carbon Dioxide Level 20 mEQ/L (20-30) Anion Gap 18 (5-15) H Blood Urea Nitrogen 17 mg/dL (7-23) Creatinine 0.6 mg/dL (0.7-1.2) L Estimat Glomerular Filtration Rate > 60 mL/min (>60) Glucose Level 125 mg/dL (74-106) H Calcium Level 8.6 mg/dL (8.6-10.2) Phosphorus Level 3.1 mg/dL (2.5-4.8) Magnesium Level 1.9 mg/dL (1.7-2.5) Iron Level 16 ug/dL (59-158) L Total Iron Binding Capacity 111 ug/dL (250-400) L Percent Iron Saturation 14 % (15-50) L Unsaturated Iron Binding 95 ug/dL (112-346) L Ferritin 280 ng/mL (10-230) H Total Bilirubin 0.4 mg/dL (0.0-1.2) Aspartate Amino Transf (AST/SGOT) 13 U/L (5-40) Alanine Aminotransferase (ALT/SGPT) 15 U/L (3-41) Alkaline Phosphatase 175 U/L (40-129) H Total Protein 7.9 g/dL (6.6-8.7) Albumin 1.8 g/dL (3.5-5.2) L Globulin 6.1 g/dL Albumin/Globulin Ratio 0.2 (1.0-2.7) L Carcinoembryonic Antigen 2.2 ng/mL Vitamin B12 Level 682 pg/mL (211-946) Folate Pending Thyroid Stimulating Hormone (TSH) 9.340 uIU/mL (0.300-4.500) Free Thyroxine 0.69 ng/dL (0.86-1.85) L Current Medications Medications (Trade) Dose Ordered Sig/[place] Route PRN Reason Start Time Stop Time Status Last Admin Dose Admin Acetaminophen (Tylenol) 650 mg Q4H PRN ORAL fever 12/08/16 18:30 01/07/17 18:29 12/12/16 09:51 Al Hydroxide/Mg Hydroxide (Mylanta II) 30 ml Q6H PRN ORAL dyspepsia 12/08/16 18:30 01/07/17 18:29 Albuterol/ Ipratropium (DuoNeb 0.5-3(2.5)mg/3ml) 3 ml Q6HRT PRN HHN sob 12/11/16 18:30 12/16/16 18:29 Aztreonam 1 gm/ Dextrose 55 ml @ 110 mls/hr Q8H IVPB 12/13/16 08:00 12/20/16 07:59 12/13/16 08:00 Dextrose STAT PRN IV Hypoglycemia 12/09/16 15:00 01/08/17 14:59 Divalproex Sodium (Depakote ER) 1,500 mg BEDTIME ORAL 12/13/16 21:00 01/12/17 20:59 Haloperidol Lactate (Haldol) 5 mg Q4HR PRN IVPB Agitation 12/11/16 19:15 01/10/17 19:14 Hydroxyzine HCl (Atarax) 50 mg Q6H PRN ORAL Itching 12/09/16 14:30 01/08/17 14:29 Insulin Aspart (NovoLOG) BEFORE MEALS AND HS SUBQ 12/09/16 16:30 01/08/17 16:29 12/13/16 12:01 Iron Sucrose/ Sodium Chloride (Venofer/Sodium Chloride) 60 ml @ 240 mls/hr BEDTIME IVPB 12/13/16 21:00 12/17/16 21:14 Levothyroxine Sodium (Synthroid) 25 mcg DAILY@0630 ORAL 12/11/16 06:30 01/10/17 06:29 12/13/16 06:54 Lorazepam (Ativan 2mg/ml 1ml) 0.5 mg Q4H PRN IV For Anxiety 12/08/16 18:30 12/15/16 18:29 12/13/16 10:11 Morphine Sulfate (Morphine Sulfate) 1 mg Q4H PRN IVP For Pain 12/08/16 18:30 12/15/16 18:29 12/13/16 12:22 Ondansetron HCl (Zofran) 4 mg Q6H PRN IVP Nausea & Vomiting 12/08/16 18:30 01/07/17 18:29 Pantoprazole (Protonix) 40 mg DAILY IVP 12/12/16 16:00 01/11/17 15:59 12/13/16 09:00 Polyethylene Glycol (Miralax) 17 gm HSPRN PRN ORAL Constipation 12/08/16 18:30 01/07/17 18:29 Promethazine HCl/ Codeine (Phenergan with Codeine) 5 ml Q4H PRN ORAL For Cough 12/11/16 18:30 01/10/17 18:29 Quetiapine Fumarate 25 mg 25 mg TID ORAL 12/13/16 09:00 01/12/17 08:59 12/13/16 12:43 Sodium Chloride (Sodium Chloride 1000ml bag) 1,000 ml @ 75 mls/hr [id number] IV 12/09/16 15:15 01/08/17 15:14 12/13/16 12:43 Vancomycin HCl 1 ea 1 ea DAILY PRN MISC Per rx protocol 12/12/16 10:30 01/11/17 10:29 Vancomycin HCl/ Dextrose (Vancomycin/D5W) 275 ml @ 183.708 mls/hr Q12HR@0000,1200 IVPB 12/12/16 12:00 12/17/16 11:59 12/13/16 00:00 Zolpidem Tartrate (Ambien) 5 mg HSPRN PRN ORAL Insomnia 12/08/16 18:30 01/07/17 18:29 REILLY DELGADO M.D. Dec 13, 2016 12:54
--- NOTE | 2016-12-13 13:27 | Consultation ---
Consult Note Consult Note Asked to evaluate for hypoNatremia Patient History Past Medical History: HTN, renal disease, other - anemia Examined- Data reviewed . Assessment/Plan HypoNatremia, Mild , ? Depletional Other: (1) Acute respiratory failure (2) Anemia (3) Bipolar disorder (4) Schizophrenia (5) History of CVA (cerebrovascular accident) Plan; Ua U Na Low Na avalos , per orders Comments after results available CELESTE MCCALL Dec 13, 2016 13:27
[2016-12-13] MEDS: metroNIDAZOLE 500mg 100 ML IVPB SCH ×2 (14:39→21:26)
[2016-12-13 16:00] VITALS: BP 108/73
[2016-12-13] MEDS ORDERED: NS 275ml ONE (16:15)
[2016-12-13] MEDS ORDERED: Docusate 100mg cap ORAL SCH (18:00)
[2016-12-13 19:09] LABS: APPEARANCE,URINE SLIGHTLY CLOUDY; KETONES,URINE NEGATIVE (NEGATIVE); LEUKOCYTE ESTERASE ,URINE NEGATIVE (NEGATIVE); NITRITE,URINE NEGATIVE (NEGATIVE); PH,URINE 6 (4.5-8.0); PROTEIN,URINE 2+ (NEGATIVE); UROBILINOGEN,URINE 4 MG/DL (0.0-1.0)
[2016-12-13 19:23] LABS: WBC,URINE 0-2 /HPF (0 - 0)
[2016-12-13 19:24] LABS: BACTERIA,URINE MODERATE /HPF
[2016-12-13 20:10] VITALS: BP 122/80
[2016-12-13] MEDS ORDERED: Depakote ER 500mg tab ORAL SCH (21:00)
[2016-12-13] MEDS ORDERED: Iron Sucrose 100 MG in NS 55 ML IVPB SCH (21:00)
[2016-12-13] MEDS ORDERED: Iron Sucrose 100 MG in NS 55 ML IVPB ONE (21:00)
--- NOTE | 2016-12-13 23:30 | Cardiology Progress Note ---
Assessment/Plan Assessment/Plan 1. Dyspnea likley hypoventilation, off bipap mask, no echo or clinical evidence of heart failure. 2. Anemia 3. HTN 4. CKD 5. DM Subjective Subjective Sinus rhythm at 98. Objective Last 24 Hour Vital Signs Date Time Temp Pulse Resp B/P Pulse Ox O2 Delivery O2 Flow Rate FiO2 12/13/16 20:33 86 20 Nasal Cannula 4.0 36 12/13/16 20:10 98.5 105 19 122/80 95 Nasal Cannula 4.0 12/13/16 16:00 99.0 92 19 108/73 94 Nasal Cannula 5.0 12/13/16 16:00 100 12/13/16 12:30 87 18 93 12/13/16 12:00 92 12/13/16 12:00 98.2 89 19 115/76 94 Nasal Cannula 5.0 12/13/16 10:45 78 18 94 12/13/16 08:45 85 18 93 12/13/16 08:00 97.7 82 18 118/79 93 Nasal Cannula 5.0 12/13/16 07:01 91 20 93 12/13/16 07:01 91 20 Nasal Cannula 4.0 36 12/13/16 05:28 82 19 99 Facial 35 12/13/16 05:27 35 12/13/16 04:00 97.7 20 96/64 Bi-pap 12/13/16 03:17 80 17 97 Facial 45 12/13/16 01:11 82 23 98 Facial 45 12/13/16 00:00 97.2 20 101/68 Bi-pap 12/12/16 23:26 85 22 98 Facial 45 Intake and Output 12/12/16 12/13/16 19:00 07:00 Intake Total 1717.416 ml Balance 1717.416 ml Intake Oral 920 ml IV Total 797.416 ml # Voids 2 1 # Bowel Movements 1 1 2D Echo: LVEF 55%, Mild LVH, RVSP 29mmHgRAP 15 mmHg Laboratory Tests Test 12/13/16 03:30 12/13/16 18:00 White Blood Count 10.6 K/UL (4.8-10.8) Red Blood Count 3.91 M/UL (4.70-6.10) L Hemoglobin 8.8 G/DL (14.2-18.0) L Hematocrit 29.3 % (42.0-52.0) L Mean Corpuscular Volume 75 FL (80-99) L Mean Corpuscular Hemoglobin 22.5 PG (27.0-31.0) L Mean Corpuscular Hemoglobin Concent 30.0 G/DL (32.0-36.0) L Red Cell Distribution Width 21.4 % (11.6-14.8) H Platelet Count 227 K/UL (150-450) Mean Platelet Volume 4.6 FL (6.5-10.1) L Neutrophils (%) (Auto) % (45.0-75.0) Lymphocytes (%) (Auto) % (20.0-45.0) Monocytes (%) (Auto) % (1.0-10.0) Eosinophils (%) (Auto) % (0.0-3.0) Basophils (%) (Auto) % (0.0-2.0) Reticulocyte Count 1.8 % (0.0-2.0) Prothrombin Time 12.4 SEC (9.30-11.50) H Prothromb Time International Ratio 1.2 (0.9-1.1) H Activated Partial Thromboplast Time 35 SEC (23-33) H Sodium Level 133 mEQ/L (135-145) L Potassium Level 3.4 mEQ/L (3.4-4.9) Chloride Level 95 mEQ/L (98-107) L Carbon Dioxide Level 20 mEQ/L (20-30) Anion Gap 18 (5-15) H Blood Urea Nitrogen 17 mg/dL (7-23) Creatinine 0.6 mg/dL (0.7-1.2) L Estimat Glomerular Filtration Rate > 60 mL/min (>60) Glucose Level 125 mg/dL (74-106) H Calcium Level 8.6 mg/dL (8.6-10.2) Phosphorus Level 3.1 mg/dL (2.5-4.8) Magnesium Level 1.9 mg/dL (1.7-2.5) Iron Level 16 ug/dL (59-158) L Total Iron Binding Capacity 111 ug/dL (250-400) L Percent Iron Saturation 14 % (15-50) L Unsaturated Iron Binding 95 ug/dL (112-346) L Ferritin 280 ng/mL (10-230) H Total Bilirubin 0.4 mg/dL (0.0-1.2) Aspartate Amino Transf (AST/SGOT) 13 U/L (5-40) Alanine Aminotransferase (ALT/SGPT) 15 U/L (3-41) Alkaline Phosphatase 175 U/L (40-129) H Total Protein 7.9 g/dL (6.6-8.7) Albumin 1.8 g/dL (3.5-5.2) L Globulin 6.1 g/dL Albumin/Globulin Ratio 0.2 (1.0-2.7) L Carcinoembryonic Antigen 2.2 ng/mL Vitamin B12 Level 682 pg/mL (211-946) Folate Pending Thyroid Stimulating Hormone (TSH) 9.340 uIU/mL (0.300-4.500) Free Thyroxine 0.69 ng/dL (0.86-1.85) L Urine Color Yellow Urine Appearance Slightly cloudy Urine pH 6 (4.5-8.0) Urine Specific [place] 1.015 (1.005-1.035) Urine Protein 2+ (NEGATIVE) H Urine Glucose (UA) Negative (NEGATIVE) Urine Ketones Negative (NEGATIVE) Urine Occult Blood 5+ (NEGATIVE) H Urine Nitrite Negative (NEGATIVE) Urine Bilirubin Negative (NEGATIVE) Urine Urobilinogen 4 MG/DL (0.0-1.0) H Urine Leukocyte Esterase Negative (NEGATIVE) Urine RBC 10-15 /HPF (0 - 0) H Urine WBC 0-2 /HPF (0 - 0) Urine Squamous Epithelial Cells None /LPF (NONE/OCC) Urine Bacteria Moderate /HPF (NONE) H Urine Osmolality Pending Urine Random Sodium 11 mmol/L Objective HEENT: normocephalic, atraumatic, anicteric, mucous membranes moist Respiratory/Chest: lungs clear, no respiratory distress, no accessory muscle use Cardiovascular/Chest: normal rate, regular rhythm, no JVD Abdomen: normal bowel sounds, non tender, soft Skin Exam: rash - generalzied, pruritic, linear streaks all over the body, some with blood from scratching Neurologic: alert, responsive CECE BRADLEY Dec 13, 2016 23:30
[2016-12-14] MEDS: Aztreonam 1gm/D5W 55ml IVPB SCH ×2 (00:19)
[2016-12-14 00:55] VITALS: BP 114/74
--- NOTE | 2016-12-14 02:00 | Consultation ---
DATE OF CONSULTATION: 12/12/2016 CARDIOLOGY CONSULTATION CONSULTING PHYSICIAN: Osmany Pastor M.D. REFERRING PHYSICIAN: Bill Roman M.D. REASON FOR CONSULTATION: Management of dyspnea from Cardiology standpoint. HISTORY OF PRESENT ILLNESS: The patient is a very unfortunate 56-year-old gentleman, who is transferred from a detention facility for evaluation and management of low hemoglobin and hematocrit. Apparently, his hemoglobin was 7.9 from just about a week prior to this admission. He is known to have chronic kidney disease and anemia of chronic kidney disease. At the time of his arrival to the emergency department, his blood pressure was 124/70 and pulse was 90. His initial workup included labs, which showed a hemoglobin of 7.6 and hematocrit of 26.8. The patient was admitted to the hospital for further evaluation of anemia. PAST MEDICAL HISTORY: Significant for history of diabetes mellitus, hypertension, history of cerebrovascular accident, history of anemia, history of chronic kidney disease, and history of schizophrenia. ALLERGIES: To penicillin. MEDICATIONS: Including amlodipine 10 mg p.o. daily, ascorbic acid 500 mg p.o. daily, aspirin 81 mg p.o. daily, benazepril 40 mg p.o. daily, Depakote 500 mg three times daily, Colace 100 mg p.o. daily, ferrous sulfate 325 mg p.o. daily, glipizide 5 mg p.o. daily before breakfast, multivitamins one tablet p.o. daily, Fleet Enema one container per rectal daily, sennosides two tablets p.o. at bedtime, simvastatin 20 mg p.o. at bedtime, and trazodone 75 mg p.o. daily. REVIEW OF SYSTEMS: A 12-system review was done and essentially negative except what mentioned in the history of present illness. PHYSICAL EXAMINATION: VITAL SIGNS: Blood pressure at the time of arrival to the hospital was 124/70, heart rate of 90, respirations 22, and O2 saturation of 91% on room air. GENERAL: The patient is a very unfortunate 56-year-old gentleman, who is currently on BiPAP mask. He is transferred to [facility] for evaluation and management of dyspnea. HEENT: Atraumatic and normocephalic. Anicteric. Pupils are equal, round, and reactive to light and accommodation. Extraocular muscles are intact. NECK: JVP less than 5 cm. No carotid bruit. Carotid upstrokes 2+ bilaterally. CARDIOVASCULAR: Normal S1 and S2. Regular rate and rhythm. Tachycardic. No murmurs, gallops, or rubs. PMI is at fourth intercostal space in the midclavicular line. LUNGS: Diminished breath sounds in both lungs. No crackles. ABDOMEN: Soft, nontender, and nondistended. No hepatosplenomegaly. Positive bowel sounds. EXTREMITIES: No evidence of edema, clubbing, or cyanosis. DIAGNOSTIC DATA: Initial 2D echocardiography showed LVEF of about 55%, mild left ventricular hypertrophy, trivial pericardial effusion, focal aortic valve sclerosis, dilated IVC with no physiologic collapse consistent with right atrial pressure approximately 15 to 20 mmHg, trace mitral regurgitation, and right ventricular systolic pressure 29 mmHg. Chest x-ray on 12/11/2016 showed mild bilateral pulmonary interstitial congestion. LABORATORY FINDINGS: Sodium was 130, potassium 4.5, chloride 91, bicarbonate 25, BUN of 12, creatinine 0.6, and glucose is 300. Calcium is 9.3. INR is 1.1. WBC was 6.0, hemoglobin was 7.6, hematocrit 26.8, and platelet count was 296,000. ASSESSMENT AND PLAN: 1. The patient is a very unfortunate 56-year-old gentleman, who presents to the hospital with dyspnea. This might be secondary to hypoventilation. The patient is currently on BiPAP mask. A 2D echocardiography has shown normal left ventricular systolic function with normal cardiac filling pressures. We will continue with pulmonary toilet, intravenous antibiotic, and BiPAP mask. 2. Diabetes mellitus. 3. Hypertension. 4. Anemia. 5. Chronic end-stage renal disease. 6. History of schizophrenia. I would like to thank, Dr. Roman, for allowing me to participate in the care of this patient. Osmany Pastor M.D. DR: SONAM JOB#: [id number] CC:
[2016-12-14] MEDS: LORazepam Inj 2mg/ml 1ml IV PRN ×3 (04:04→22:23)
[2016-12-14 04:19] VITALS: BP 111/71
[2016-12-14] MEDS: metroNIDAZOLE 500mg 100 ML IVPB SCH ×3 (05:02→22:33)
[2016-12-14] MEDS: Levothyroxine 25mcg tab ORAL SCH (05:52)
[2016-12-14] MEDS: NovoLOG Insulin Flexpen SUBQ SCH ×4 (05:55→23:30)
[2016-12-14 05:58] LABS: BASOPHILS % (AUTO) 0.7 % (0.0-2.0); EOSINOPHILS % (AUTO) 0.9 % (0.0-3.0); LYMPHOCYTES % (AUTO) 8.2 % (20.0-45.0); MEAN CORPUSCULAR HEMOGLOBIN 23.8 PG (27.0-31.0); MEAN CORPUSCULAR HGB CONC 30.7 G/DL (32.0-36.0); MEAN CORPUSCULAR VOLUME 77 FL (80-99); MEAN PLATELET VOLUME 4.4 FL (6.5-10.1); MONOCYTES % (AUTO) 7.8 % (1.0-10.0); NEUTROPHILS % (AUTO) 82.4 % (45.0-75.0); PLATELET COUNT 202 K/UL (150-450); RED BLOOD COUNT 3.74 M/UL (4.70-6.10); RED CELL DISTRIBUTION WIDTH 21.8 % (11.6-14.8); WHITE BLOOD COUNT 7.9 K/UL (4.8-10.8)
[2016-12-14 06:14] LABS: INR 1.1 (0.9-1.1)
[2016-12-14 06:15] LABS: ALANINE AMINOTRANSFERASE 13 U/L (3-41); ALBUMIN/GLOBULIN RATIO 0.3 (1.0-2.7); ANION GAP 13 (5-15); ASPARTATE AMINO TRANSFERASE 11 U/L (5-40); CALCIUM 9.1 mg/dL (8.6-10.2); CARBON DIOXIDE 23 mEQ/L (20-30); CHLORIDE 97 mEQ/L (98-107); CHOLESTEROL 88 mg/dL (< 200); CHOLESTEROL/HDL RATIO 5.9 (3.3-4.4); CREATININE 0.5 mg/dL (0.7-1.2); GLOMERULAR FILTRATION RATE > 60 mL/min (>60); HEMOLYSIS 0; LDL CHOLESTEROL (CALC.) 54 mg/dL (60-99); POTASSIUM 3.8 mEQ/L (3.4-4.9); SODIUM 133 mEQ/L (135-145)
[2016-12-14 06:16] LABS: CRP QUANT 20.1 mg/dL (< 0.5); URIC ACID 6.9 mg/dL (3.0-7.5)
[2016-12-14 06:58] LABS: MAGNESIUM 1.9 mg/dL (1.7-2.5); PHOSPHORUS 2.3 mg/dL (2.5-4.8)
[2016-12-14] MEDS ORDERED: DuoNeb 0.5-3(2.5)mg/3ml neb HHN PRN ×2 (07:00→13:00)
[2016-12-14] MEDS ORDERED: Mylanta II UD 30ml ORAL PRN ×2 (07:00→13:00)
[2016-12-14] MEDS ORDERED: metroNIDAZOLE 500mg 100 ML IVPB SCH (07:00)
[2016-12-14] MEDS ORDERED: Aztreonam Inj 1 GM in D5W 55 ML IVPB SCH (08:00)
[2016-12-14] MEDS ORDERED: HydrOXYzine 50mg cap ORAL PRN ×2 (08:30)
[2016-12-14] MEDS ORDERED: Docusate 100mg cap ORAL SCH (09:00)
[2016-12-14] MEDS ORDERED: Haloperidol 5mg/ml Inj IVPB PRN ×2 (09:00)
[2016-12-14] MEDS ORDERED: Pantoprazole Inj IVP SCH (09:00)
[2016-12-14] MEDS: Aztreonam Inj 1 GM in D5W 55 ML IVPB SCH ×2 (09:41→17:48)
[2016-12-14] MEDS: Morphine Sulfate 2mg/ml Inj IVP PRN ×2 (09:42→14:06)
[2016-12-14] MEDS: Pantoprazole Inj IVP SCH (09:46)
[2016-12-14] MEDS: Docusate 100mg cap ORAL SCH ×2 (09:46→17:56)
[2016-12-14] MEDS ORDERED: Morphine Sulfate 2mg/ml Inj IVP PRN (10:30)
[2016-12-14] MEDS ORDERED: Promethazine/Codeine 5ml UD ORAL PRN ×2 (10:30)
[2016-12-14] MEDS ORDERED: LORazepam Inj 2mg/ml 1ml IV PRN (10:30)
[2016-12-14] MEDS ORDERED: NovoLOG Insulin Flexpen SUBQ SCH (11:30)
--- NOTE | 2016-12-14 11:45 | Progress Note ---
DATE: 12/14/2016 SUBJECTIVE: The patient continues to be at times agitated, waxing and waning consciousness, compliant with medications. No behavior issues. MENTAL STATUS EXAMINATION: The patient is alert and oriented times self and place. Mood is anxious and agitated. Affect is constricted. Congruent mood. Thought process is concrete. There is a paucity of thought content. No suicidal or homicidal ideation. ASSESSMENT: Delirium due to general medical condition. PLAN: 1. The patient will be continued on Haldol IM. 2. We will the Seroquel 25 mg t.i.d. 3. We will continue follow and readjust the medications. Dale Galicia M.D. DR: Henry JOB#: [id number] CC:
[2016-12-14 12:00] VITALS: BP 116/68
--- NOTE | 2016-12-14 12:55 | GI Progress Note ---
Assessment/Plan Problems: (1) Schizophrenia ICD Codes: F20.9 - Schizophrenia, unspecified SNOMED: 37390091 (2) Anemia ICD Codes: D64.9 - Anemia, unspecified SNOMED: 679543384 Qualifiers: Qualified Codes: D64.9 - Anemia, unspecified (3) Leukocytosis ICD Codes: D72.829 - Elevated white blood cell count, unspecified SNOMED: 217883439, 684189126 (4) Acute respiratory failure ICD Codes: J96.00 - Acute respiratory failure, unspecified whether with hypoxia or hypercapnia SNOMED: 90804777 Status: stable, progressing Status Narrative Discussed with Dr. Juares. Assessment/Plan iron deficiency >> venofer stable H&H low T4 pt scheduled tomorrow for EGD/colonoscopy to evaluate anemia requiring blood transfusion. - CLD, NPO @ [facility]. - hold all blood thinners. monitor H&H, transfuse prn OB stool r/o GI bleed uncollected ppi fu labs Subjective Gastrointestinal/Abdominal: Reports: no symptoms Objective Last 24 Hour Vital Signs Date Time Temp Pulse Resp B/P Pulse Ox O2 Delivery O2 Flow Rate FiO2 12/14/16 12:00 97.4 83 19 116/68 96 Nasal Cannula 4.0 12/14/16 07:43 90 20 Nasal Cannula 4.0 36 12/14/16 05:12 98.2 12/14/16 04:54 88 12/14/16 04:19 100.0 88 20 111/71 93 Nasal Cannula 4.0 12/14/16 01:22 98.4 12/14/16 00:55 100.0 86 18 114/74 92 Nasal Cannula 4.0 12/14/16 00:32 100 12/13/16 20:33 86 20 Nasal Cannula 4.0 36 12/13/16 20:10 98.5 105 19 122/80 95 Nasal Cannula 4.0 12/13/16 16:00 99.0 92 19 108/73 94 Nasal Cannula 5.0 12/13/16 16:00 100 Intake and Output 12/13/16 12/14/16 19:00 07:00 Intake Total 1671.25 ml 1055.8 ml Output Total 225 ml 1300 ml Balance 1446.25 ml -244.2 ml Intake Oral 1200 ml IV Total 471.25 ml 1055.8 ml Output Urine Total 225 ml 1300 ml # Bowel Movements 3 2 Laboratory Tests Test 12/13/16 18:00 12/14/16 04:40 Urine Color Yellow Urine Appearance Slightly cloudy Urine pH 6 (4.5-8.0) Urine Specific [place] 1.015 (1.005-1.035) Urine Protein 2+ (NEGATIVE) H Urine Glucose (UA) Negative (NEGATIVE) Urine Ketones Negative (NEGATIVE) Urine Occult Blood 5+ (NEGATIVE) H Urine Nitrite Negative (NEGATIVE) Urine Bilirubin Negative (NEGATIVE) Urine Urobilinogen 4 MG/DL (0.0-1.0) H Urine Leukocyte Esterase Negative (NEGATIVE) Urine RBC 10-15 /HPF (0 - 0) H Urine WBC 0-2 /HPF (0 - 0) Urine Squamous Epithelial Cells None /LPF (NONE/OCC) Urine Bacteria Moderate /HPF (NONE) H Urine Osmolality Pending Urine Random Sodium 11 mmol/L White Blood Count 7.9 K/UL (4.8-10.8) Red Blood Count 3.74 M/UL (4.70-6.10) L Hemoglobin 8.9 G/DL (14.2-18.0) L Hematocrit 28.9 % (42.0-52.0) L Mean Corpuscular Volume 77 FL (80-99) L Mean Corpuscular Hemoglobin 23.8 PG (27.0-31.0) L Mean Corpuscular Hemoglobin Concent 30.7 G/DL (32.0-36.0) L Red Cell Distribution Width 21.8 % (11.6-14.8) H Platelet Count 202 K/UL (150-450) Mean Platelet Volume 4.4 FL (6.5-10.1) L Neutrophils (%) (Auto) 82.4 % (45.0-75.0) H Lymphocytes (%) (Auto) 8.2 % (20.0-45.0) L Monocytes (%) (Auto) 7.8 % (1.0-10.0) Eosinophils (%) (Auto) 0.9 % (0.0-3.0) Basophils (%) (Auto) 0.7 % (0.0-2.0) Prothrombin Time 12.0 SEC (9.30-11.50) H Prothromb Time International Ratio 1.1 (0.9-1.1) Activated Partial Thromboplast Time 34 SEC (23-33) H Sodium Level 133 mEQ/L (135-145) L Potassium Level 3.8 mEQ/L (3.4-4.9) Chloride Level 97 mEQ/L (98-107) L Carbon Dioxide Level 23 mEQ/L (20-30) Anion Gap 13 (5-15) Blood Urea Nitrogen 9 mg/dL (7-23) Creatinine 0.5 mg/dL (0.7-1.2) L Estimat Glomerular Filtration Rate > 60 mL/min (>60) Glucose Level 104 mg/dL (74-106) Plasma/Serum Osmolality Pending Uric Acid 6.9 mg/dL (3.0-7.5) Calcium Level 9.1 mg/dL (8.6-10.2) Phosphorus Level 2.3 mg/dL (2.5-4.8) L Magnesium Level 1.9 mg/dL (1.7-2.5) Total Bilirubin 0.3 mg/dL (0.0-1.2) Gamma Glutamyl Transpeptidase 138 U/L (8-61) H Aspartate Amino Transf (AST/SGOT) 11 U/L (5-40) Alanine Aminotransferase (ALT/SGPT) 13 U/L (3-41) Alkaline Phosphatase 191 U/L (40-129) H C-Reactive Protein, Quantitative 20.1 mg/dL (< 0.5) H Pro-B-Type Natriuretic Peptide 1870 pg/mL (0-125) H Total Protein 8.0 g/dL (6.6-8.7) Albumin 1.9 g/dL (3.5-5.2) L Globulin 6.1 g/dL Albumin/Globulin Ratio 0.3 (1.0-2.7) L Triglycerides Level 96 mg/dL (< 150) Cholesterol Level 88 mg/dL (< 200) LDL Cholesterol 54 mg/dL (60-99) L HDL Cholesterol 15 mg/dL (> 60) Cholesterol/HDL Ratio 5.9 (3.3-4.4) H Thyroid Stimulating Hormone (TSH) 17.980 uIU/mL (0.300-4.500) Height (Feet): 5 Height (Inches): 4.00 Weight (Pounds): 145 General Appearance: no apparent distress, alert Cardiovascular: normal rate Respiratory/Chest: normal breath sounds, no respiratory distress Abdominal Exam: normal bowel sounds, non tender, soft Veronica Woods N.P. Dec 14, 2016 12:55
[2016-12-14] MEDS ORDERED: Tubing IV Secondary IV ONE (15:22)
[2016-12-14 16:00] VITALS: BP 102/64
[2016-12-14] MEDS ORDERED: Polyethylene Glycol 238gm bottle ORAL ONE (16:00)
[2016-12-14] MEDS ORDERED: Sodium Phosphate 30 MM in NS 275 ML IVPB ONE (16:00)
[2016-12-14] MEDS ORDERED: Magnesium Citrate Liq Btl ORAL ONE (16:00)
[2016-12-14] MEDS ORDERED: Bisacodyl EC 5mg tab ORAL ONE (16:00)
--- NOTE | 2016-12-14 18:26 | Pulmonology Progress Note ---
Assessment/Plan Problems: (1) Acute respiratory failure (2) Anemia (3) Bipolar disorder (4) Schizophrenia (5) History of CVA (cerebrovascular accident) Assessment/Plan cxr LLL infiltrate titrate fio2 to sat of 92% respiratory treatment antitussives sputum for c/s low grade fever swallow study continue abx Subjective ROS Limited/Unobtainable: No Allergies: Coded Allergies: PENICILLINS (Verified Allergy, Unknown, 12/12/16) Uncoded Allergies: PCN (Allergy, Unknown, 12/08/16) Objective Last 24 Hour Vital Signs Date Time Temp Pulse Resp B/P Pulse Ox O2 Delivery O2 Flow Rate FiO2 12/14/16 17:26 97 Nasal Cannula 4.0 36 12/14/16 17:26 Nasal Cannula 4.0 36 12/14/16 16:00 97.3 78 18 102/64 98 Nasal Cannula 4.0 12/14/16 12:00 97.4 83 19 116/68 96 Nasal Cannula 4.0 12/14/16 07:43 90 20 Nasal Cannula 4.0 36 12/14/16 05:12 98.2 12/14/16 04:54 88 12/14/16 04:19 100.0 88 20 111/71 93 Nasal Cannula 4.0 12/14/16 01:22 98.4 12/14/16 00:55 100.0 86 18 114/74 92 Nasal Cannula 4.0 12/14/16 00:32 100 12/13/16 20:33 86 20 Nasal Cannula 4.0 36 12/13/16 20:10 98.5 105 19 122/80 95 Nasal Cannula 4.0 Intake and Output 12/13/16 12/14/16 19:00 07:00 Intake Total 1671.25 ml 1055.8 ml Output Total 225 ml 1300 ml Balance 1446.25 ml -244.2 ml Intake Oral 1200 ml IV Total 471.25 ml 1055.8 ml Output Urine Total 225 ml 1300 ml # Bowel Movements 3 2 Objective General Appearance: WD/WN HEENT: normocephalic, atraumatic Respiratory/Chest: chest wall non-tender, lungs rhonchi Cardiovascular: normal peripheral pulses, normal rate Abdomen: normal bowel sounds, soft, non tender, no organomegaly Extremities: no cyanosis, no clubbing Skin: no rash Laboratory Tests 12/14/16 04:40: White Blood Count 7.9, Red Blood Count 3.74L, Hemoglobin 8.9L, Hematocrit 28.9L , Mean Corpuscular Volume 77L, Mean Corpuscular Hemoglobin 23.8L, Mean Corpuscular Hemoglobin Concent 30.7L, Red Cell Distribution Width 21.8H, Platelet Count 202, Mean Platelet Volume 4.4L, Neutrophils (%) (Auto) 82.4H, Lymphocytes (%) (Auto) 8.2L, Monocytes (%) (Auto) 7.8, Eosinophils (%) (Auto) 0.9, Basophils (%) (Auto) 0.7, Prothrombin Time 12.0H, Prothromb Time International Ratio 1.1, Activated Partial Thromboplast Time 34H, Sodium Level 133L, Potassium Level 3.8, Chloride Level 97L, Carbon Dioxide Level 23, Anion Gap 13, Blood Urea Nitrogen 9, Creatinine 0.5L, Estimat Glomerular Filtration Rate > 60, Glucose Level 104, Plasma/Serum Osmolality [Pending], Uric Acid 6.9, Calcium Level 9.1, Phosphorus Level 2.3L, Magnesium Level 1.9, Total Bilirubin 0.3, Gamma Glutamyl Transpeptidase 138H, Aspartate Amino Transf (AST/SGOT) 11, Alanine Aminotransferase (ALT/SGPT) 13, Alkaline Phosphatase 191H, C-Reactive Protein, Quantitative 20.1H, Pro-B-Type Natriuretic Peptide 1870H, Total Protein 8.0, Albumin 1.9L, Globulin 6.1, Albumin/Globulin Ratio 0.3L, Triglycerides Level 96, Cholesterol Level 88, LDL Cholesterol 54L, HDL Cholesterol 15, Cholesterol/HDL Ratio 5.9H, Thyroid Stimulating Hormone (TSH) 17.980H Current Medications Medications (Trade) Dose Ordered Sig/[place] Route PRN Reason Start Time Stop Time Status Last Admin Dose Admin Acetaminophen (Tylenol) 650 mg Q4H PRN ORAL fever 12/14/16 10:30 01/13/17 10:29 Al Hydroxide/Mg Hydroxide (Mylanta II) 30 ml Q6H PRN ORAL dyspepsia 12/14/16 13:00 01/13/17 12:59 Albuterol/ Ipratropium (DuoNeb 0.5-3(2.5)mg/3ml) 3 ml Q6HRT PRN HHN sob 12/14/16 13:00 12/19/16 12:59 Aztreonam 1 gm/ Dextrose 55 ml @ 110 mls/hr Q8H IVPB 12/14/16 10:00 12/21/16 09:59 12/14/16 17:48 Dextrose (Dextrose 50%) STAT PRN IV Hypoglycemia 12/15/16 07:00 01/14/17 06:59 Divalproex Sodium (Depakote ER) 1,500 mg BEDTIME ORAL 12/14/16 21:00 01/13/17 20:59 Docusate Sodium (Colace) 100 mg TWICE A DAY ORAL 12/14/16 09:00 01/13/17 08:59 Hydroxyzine HCl (Atarax) 50 mg Q6H PRN ORAL Itching 12/14/16 08:30 01/13/17 08:29 Insulin Aspart (NovoLOG) BEFORE MEALS AND HS SUBQ 12/14/16 11:30 01/13/17 11:29 Iron Sucrose 100 mg/Sodium Chloride 60 ml @ 240 mls/hr BEDTIME IVPB 12/14/16 21:00 12/17/16 21:01 Levothyroxine Sodium (Synthroid) 25 mcg DAILY@0630 ORAL 12/15/16 06:30 01/14/17 06:29 Lorazepam (Ativan 2mg/ml 1ml) 0.5 mg Q4H PRN IV For Anxiety 12/14/16 10:30 12/21/16 10:29 12/14/16 12:54 Metronidazole 100 ml @ 100 mls/hr Q8HR IVPB 12/14/16 14:00 12/21/16 13:59 12/14/16 14:01 Morphine Sulfate (Morphine Sulfate) 1 mg Q4H PRN IVP For Pain 12/14/16 10:30 12/21/16 10:29 12/14/16 14:06 Ondansetron HCl (Zofran) 4 mg Q6H PRN IVP Nausea & Vomiting 12/14/16 12:30 01/13/17 12:29 Pantoprazole (Protonix) 40 mg DAILY IVP 12/14/16 09:00 01/13/17 08:59 12/14/16 09:46 Polyethylene Glycol (Miralax) 17 gm HSPRN PRN ORAL Constipation 12/14/16 18:30 01/13/17 18:29 Promethazine HCl/ Codeine (Phenergan with Codeine) 5 ml Q4H PRN ORAL For Cough 12/14/16 10:30 01/13/17 10:29 Quetiapine Fumarate (SEROquel) 25 mg TID ORAL 12/14/16 09:00 01/13/17 08:59 12/14/16 12:54 Sodium Chloride (Sodium Chloride 1000ml bag) 1,000 ml @ 75 mls/hr [id number] IV 12/14/16 10:00 01/13/17 09:59 12/14/16 09:42 Sodium Phosphate 133 ml 133 ml ONCE ONCE RECTAL 12/14/16 23:00 12/14/16 23:01 Sodium Phosphate/ Sodium Chloride (NaPO4/Sodium Chloride) 285 ml @ 47.5 mls/hr ONCE ONCE IVPB 12/14/16 16:00 12/14/16 21:59 12/14/16 16:24 Zolpidem Tartrate (Ambien) 5 mg HSPRN PRN ORAL Insomnia 12/14/16 18:30 01/13/17 18:29 BRAXTON SUAREZ Dec 14, 2016 18:26
[2016-12-14] MEDS ORDERED: Zolpidem 5mg tab ORAL PRN ×2 (18:30)
[2016-12-14] MEDS ORDERED: Miralax 17gm pkt ORAL PRN ×2 (18:30)
[2016-12-14 19:43] VITALS: BP 117/65
[2016-12-14] MEDS ORDERED: Iron Sucrose 100 MG in NS 55 ML IVPB SCH ×4 (21:00)
[2016-12-14] MEDS ORDERED: Depakote ER 500mg tab ORAL SCH ×2 (21:00)
--- NOTE | 2016-12-14 21:40 | Infectious Diseases Prog Note ---
Assessment/Plan Assessment/Plan A: The patient is a 56-year-old male with SP leukocytosis possible aspiration pneumonia Respiratory distress. Chest x-ray, increased basilar atelectasis. rash on face and arm : not suggestive of scabies Diabetes Hypertension Anemia. CKD. Schizophrenia PLAN: Cont on aztreonam d# 3 / 7 and Flagayl d# 2 / 7 DC vancomycin Monitor CBC. Monitor BMP. Monitor cultures (blood and urine). Monitor chest x-ray Subjective Constitutional: Denies: anorexia, chills, drenching sweats, fatigue, fever, no symptoms, other Allergies: Coded Allergies: PENICILLINS (Verified Allergy, Unknown, 12/12/16) Uncoded Allergies: PCN (Allergy, Unknown, 12/08/16) Objective Vital Signs Last 24 Hour Vital Signs Date Time Temp Pulse Resp B/P Pulse Ox O2 Delivery O2 Flow Rate FiO2 12/14/16 20:22 Nasal Cannula 4.0 36 12/14/16 20:22 96 Nasal Cannula 4.0 36 12/14/16 20:21 88 22 Nasal Cannula 3.0 32 12/14/16 19:43 97.9 91 20 117/65 89 Nasal Cannula 3.0 12/14/16 17:26 97 Nasal Cannula 4.0 36 12/14/16 17:26 Nasal Cannula 4.0 36 12/14/16 16:00 97.3 78 18 102/64 98 Nasal Cannula 4.0 12/14/16 12:00 97.4 83 19 116/68 96 Nasal Cannula 4.0 12/14/16 07:43 90 20 Nasal Cannula 4.0 36 12/14/16 05:12 98.2 12/14/16 04:54 88 12/14/16 04:19 100.0 88 20 111/71 93 Nasal Cannula 4.0 12/14/16 01:22 98.4 12/14/16 00:55 100.0 86 18 114/74 92 Nasal Cannula 4.0 12/14/16 00:32 100 Height (Feet): 5 Height (Inches): 4.00 Weight (Pounds): 145 HEENT: mucous membranes moist Respiratory/Chest: normal breath sounds Cardiovascular: regular rhythm Abdomen: non distended Laboratory Tests Test 12/14/16 04:40 White Blood Count 7.9 K/UL (4.8-10.8) Red Blood Count 3.74 M/UL (4.70-6.10) L Hemoglobin 8.9 G/DL (14.2-18.0) L Hematocrit 28.9 % (42.0-52.0) L Mean Corpuscular Volume 77 FL (80-99) L Mean Corpuscular Hemoglobin 23.8 PG (27.0-31.0) L Mean Corpuscular Hemoglobin Concent 30.7 G/DL (32.0-36.0) L Red Cell Distribution Width 21.8 % (11.6-14.8) H Platelet Count 202 K/UL (150-450) Mean Platelet Volume 4.4 FL (6.5-10.1) L Neutrophils (%) (Auto) 82.4 % (45.0-75.0) H Lymphocytes (%) (Auto) 8.2 % (20.0-45.0) L Monocytes (%) (Auto) 7.8 % (1.0-10.0) Eosinophils (%) (Auto) 0.9 % (0.0-3.0) Basophils (%) (Auto) 0.7 % (0.0-2.0) Prothrombin Time 12.0 SEC (9.30-11.50) H Prothromb Time International Ratio 1.1 (0.9-1.1) Activated Partial Thromboplast Time 34 SEC (23-33) H Sodium Level 133 mEQ/L (135-145) L Potassium Level 3.8 mEQ/L (3.4-4.9) Chloride Level 97 mEQ/L (98-107) L Carbon Dioxide Level 23 mEQ/L (20-30) Anion Gap 13 (5-15) Blood Urea Nitrogen 9 mg/dL (7-23) Creatinine 0.5 mg/dL (0.7-1.2) L Estimat Glomerular Filtration Rate > 60 mL/min (>60) Glucose Level 104 mg/dL (74-106) Plasma/Serum Osmolality Pending Uric Acid 6.9 mg/dL (3.0-7.5) Calcium Level 9.1 mg/dL (8.6-10.2) Phosphorus Level 2.3 mg/dL (2.5-4.8) L Magnesium Level 1.9 mg/dL (1.7-2.5) Total Bilirubin 0.3 mg/dL (0.0-1.2) Gamma Glutamyl Transpeptidase 138 U/L (8-61) H Aspartate Amino Transf (AST/SGOT) 11 U/L (5-40) Alanine Aminotransferase (ALT/SGPT) 13 U/L (3-41) Alkaline Phosphatase 191 U/L (40-129) H C-Reactive Protein, Quantitative 20.1 mg/dL (< 0.5) H Pro-B-Type Natriuretic Peptide 1870 pg/mL (0-125) H Total Protein 8.0 g/dL (6.6-8.7) Albumin 1.9 g/dL (3.5-5.2) L Globulin 6.1 g/dL Albumin/Globulin Ratio 0.3 (1.0-2.7) L Triglycerides Level 96 mg/dL (< 150) Cholesterol Level 88 mg/dL (< 200) LDL Cholesterol 54 mg/dL (60-99) L HDL Cholesterol 15 mg/dL (> 60) Cholesterol/HDL Ratio 5.9 (3.3-4.4) H Thyroid Stimulating Hormone (TSH) 17.980 uIU/mL (0.300-4.500) Current Medications Medications (Trade) Dose Ordered Sig/[place] Route PRN Reason Start Time Stop Time Status Last Admin Dose Admin Acetaminophen (Tylenol) 650 mg Q4H PRN ORAL fever 12/14/16 10:30 01/13/17 10:29 Al Hydroxide/Mg Hydroxide (Mylanta II) 30 ml Q6H PRN ORAL dyspepsia 12/14/16 13:00 01/13/17 12:59 Albuterol/ Ipratropium (DuoNeb 0.5-3(2.5)mg/3ml) 3 ml Q6HRT PRN HHN sob 12/14/16 13:00 12/19/16 12:59 Aztreonam 1 gm/ Dextrose 55 ml @ 110 mls/hr Q8H IVPB 12/14/16 10:00 12/21/16 09:59 12/14/16 17:48 Dextrose (Dextrose 50%) STAT PRN IV Hypoglycemia 12/15/16 07:00 01/14/17 06:59 Divalproex Sodium (Depakote ER) 1,500 mg BEDTIME ORAL 12/14/16 21:00 01/13/17 20:59 Docusate Sodium (Colace) 100 mg TWICE A DAY ORAL 12/14/16 09:00 01/13/17 08:59 Hydroxyzine HCl (Atarax) 50 mg Q6H PRN ORAL Itching 12/14/16 08:30 01/13/17 08:29 Insulin Aspart (NovoLOG) BEFORE MEALS AND HS SUBQ 12/14/16 11:30 01/13/17 11:29 Iron Sucrose 100 mg/Sodium Chloride 60 ml @ 240 mls/hr BEDTIME IVPB 12/14/16 21:00 12/17/16 21:01 Levothyroxine Sodium (Synthroid) 25 mcg DAILY@0630 ORAL 12/15/16 06:30 01/14/17 06:29 Lorazepam (Ativan 2mg/ml 1ml) 0.5 mg Q4H PRN IV For Anxiety 12/14/16 10:30 12/21/16 10:29 12/14/16 12:54 Metronidazole 100 ml @ 100 mls/hr Q8HR IVPB 12/14/16 14:00 12/21/16 13:59 12/14/16 14:01 Morphine Sulfate (Morphine Sulfate) 1 mg Q4H PRN IVP For Pain 12/14/16 10:30 12/21/16 10:29 12/14/16 14:06 Ondansetron HCl (Zofran) 4 mg Q6H PRN IVP Nausea & Vomiting 12/14/16 12:30 01/13/17 12:29 Pantoprazole (Protonix) 40 mg DAILY IVP 12/14/16 09:00 01/13/17 08:59 12/14/16 09:46 Polyethylene Glycol (Miralax) 17 gm HSPRN PRN ORAL Constipation 12/14/16 18:30 01/13/17 18:29 Promethazine HCl/ Codeine (Phenergan with Codeine) 5 ml Q4H PRN ORAL For Cough 12/14/16 10:30 01/13/17 10:29 Quetiapine Fumarate (SEROquel) 25 mg TID ORAL 12/14/16 09:00 01/13/17 08:59 12/14/16 12:54 Sodium Chloride (Sodium Chloride 1000ml bag) 1,000 ml @ 75 mls/hr [id number] IV 12/14/16 10:00 01/13/17 09:59 12/14/16 09:42 Sodium Phosphate 133 ml 133 ml ONCE ONCE RECTAL 12/14/16 23:00 12/14/16 23:01 Sodium Phosphate/ Sodium Chloride (NaPO4/Sodium Chloride) 285 ml @ 47.5 mls/hr ONCE ONCE IVPB 12/14/16 16:00 12/14/16 21:59 12/14/16 16:24 Zolpidem Tartrate (Ambien) 5 mg HSPRN PRN ORAL Insomnia 12/14/16 18:30 01/13/17 18:29 REILLY DELGADO M.D. Dec 14, 2016 21:40
[2016-12-14] MEDS ORDERED: Fleet's Enema 133ml RECTAL ONE (23:00)
--- NOTE | 2016-12-14 23:49 | Cardiology Progress Note ---
Assessment/Plan Assessment/Plan 1. Dyspnea likley hypoventilation, off bipap mask, no echo or clinical evidence of heart failure. 2. Anemia 3. HTN 4. CKD 5. DM Subjective Subjective Sinus rhythm at 98. Objective Last 24 Hour Vital Signs Date Time Temp Pulse Resp B/P Pulse Ox O2 Delivery O2 Flow Rate FiO2 12/14/16 20:22 Nasal Cannula 4.0 36 12/14/16 20:22 96 Nasal Cannula 4.0 36 12/14/16 20:21 88 22 Nasal Cannula 3.0 32 12/14/16 19:43 97.9 91 20 117/65 89 Nasal Cannula 3.0 12/14/16 17:26 97 Nasal Cannula 4.0 36 12/14/16 17:26 Nasal Cannula 4.0 36 12/14/16 16:00 97.3 78 18 102/64 98 Nasal Cannula 4.0 12/14/16 12:00 97.4 83 19 116/68 96 Nasal Cannula 4.0 12/14/16 07:43 90 20 Nasal Cannula 4.0 36 12/14/16 05:12 98.2 12/14/16 04:54 88 12/14/16 04:19 100.0 88 20 111/71 93 Nasal Cannula 4.0 12/14/16 01:22 98.4 12/14/16 00:55 100.0 86 18 114/74 92 Nasal Cannula 4.0 12/14/16 00:32 100 Intake and Output 12/13/16 12/14/16 19:00 07:00 Intake Total 1671.25 ml 1055.8 ml Output Total 225 ml 1300 ml Balance 1446.25 ml -244.2 ml Intake Oral 1200 ml IV Total 471.25 ml 1055.8 ml Output Urine Total 225 ml 1300 ml # Bowel Movements 3 2 Laboratory Tests Test 12/14/16 04:40 White Blood Count 7.9 K/UL (4.8-10.8) Red Blood Count 3.74 M/UL (4.70-6.10) L Hemoglobin 8.9 G/DL (14.2-18.0) L Hematocrit 28.9 % (42.0-52.0) L Mean Corpuscular Volume 77 FL (80-99) L Mean Corpuscular Hemoglobin 23.8 PG (27.0-31.0) L Mean Corpuscular Hemoglobin Concent 30.7 G/DL (32.0-36.0) L Red Cell Distribution Width 21.8 % (11.6-14.8) H Platelet Count 202 K/UL (150-450) Mean Platelet Volume 4.4 FL (6.5-10.1) L Neutrophils (%) (Auto) 82.4 % (45.0-75.0) H Lymphocytes (%) (Auto) 8.2 % (20.0-45.0) L Monocytes (%) (Auto) 7.8 % (1.0-10.0) Eosinophils (%) (Auto) 0.9 % (0.0-3.0) Basophils (%) (Auto) 0.7 % (0.0-2.0) Prothrombin Time 12.0 SEC (9.30-11.50) H Prothromb Time International Ratio 1.1 (0.9-1.1) Activated Partial Thromboplast Time 34 SEC (23-33) H Sodium Level 133 mEQ/L (135-145) L Potassium Level 3.8 mEQ/L (3.4-4.9) Chloride Level 97 mEQ/L (98-107) L Carbon Dioxide Level 23 mEQ/L (20-30) Anion Gap 13 (5-15) Blood Urea Nitrogen 9 mg/dL (7-23) Creatinine 0.5 mg/dL (0.7-1.2) L Estimat Glomerular Filtration Rate > 60 mL/min (>60) Glucose Level 104 mg/dL (74-106) Plasma/Serum Osmolality Pending Uric Acid 6.9 mg/dL (3.0-7.5) Calcium Level 9.1 mg/dL (8.6-10.2) Phosphorus Level 2.3 mg/dL (2.5-4.8) L Magnesium Level 1.9 mg/dL (1.7-2.5) Total Bilirubin 0.3 mg/dL (0.0-1.2) Gamma Glutamyl Transpeptidase 138 U/L (8-61) H Aspartate Amino Transf (AST/SGOT) 11 U/L (5-40) Alanine Aminotransferase (ALT/SGPT) 13 U/L (3-41) Alkaline Phosphatase 191 U/L (40-129) H C-Reactive Protein, Quantitative 20.1 mg/dL (< 0.5) H Pro-B-Type Natriuretic Peptide 1870 pg/mL (0-125) H Total Protein 8.0 g/dL (6.6-8.7) Albumin 1.9 g/dL (3.5-5.2) L Globulin 6.1 g/dL Albumin/Globulin Ratio 0.3 (1.0-2.7) L Triglycerides Level 96 mg/dL (< 150) Cholesterol Level 88 mg/dL (< 200) LDL Cholesterol 54 mg/dL (60-99) L HDL Cholesterol 15 mg/dL (> 60) Cholesterol/HDL Ratio 5.9 (3.3-4.4) H Thyroid Stimulating Hormone (TSH) 17.980 uIU/mL (0.300-4.500) Objective HEENT: normocephalic, atraumatic, anicteric, mucous membranes moist Respiratory/Chest: lungs clear, no respiratory distress, no accessory muscle use Cardiovascular/Chest: normal rate, regular rhythm, no JVD Abdomen: normal bowel sounds, non tender, soft Skin Exam: rash - generalzied, pruritic, linear streaks all over the body, some with blood from scratching Neurologic: alert, responsive CECE BRADLEY Dec 14, 2016 23:49
[2016-12-15] VITALS: BP 134/87
[2016-12-15] MEDS: Aztreonam Inj 1 GM in D5W 55 ML IVPB SCH ×2 (01:33→10:18)
[2016-12-15 04:00] VITALS: BP 129/84
[2016-12-15] MEDS: LORazepam Inj 2mg/ml 1ml IV PRN (04:28)
[2016-12-15 04:45] VITALS: BP 134/87
[2016-12-15] MEDS: NovoLOG Insulin Flexpen SUBQ SCH ×3 (05:57→16:30)
[2016-12-15 06:00] LABS: BASOPHILS % (AUTO) 0.9 % (0.0-2.0); EOSINOPHILS % (AUTO) 0.7 % (0.0-3.0); LYMPHOCYTES % (AUTO) 5.1 % (20.0-45.0); MEAN CORPUSCULAR HGB CONC 29.4 G/DL (32.0-36.0); MEAN CORPUSCULAR VOLUME 78 FL (80-99); MEAN PLATELET VOLUME 5.1 FL (6.5-10.1); MONOCYTES % (AUTO) 10.4 % (1.0-10.0); NEUTROPHILS % (AUTO) 82.8 % (45.0-75.0); PLATELET COUNT 220 K/UL (150-450); RED BLOOD COUNT 3.89 M/UL (4.70-6.10); RED CELL DISTRIBUTION WIDTH 22.1 % (11.6-14.8); WHITE BLOOD COUNT 6.7 K/UL (4.8-10.8)
[2016-12-15] MEDS: metroNIDAZOLE 500mg 100 ML IVPB SCH ×2 (06:06→14:25)
[2016-12-15] MEDS ORDERED: Levothyroxine 25mcg tab ORAL SCH ×2 (06:30)
[2016-12-15 06:35] LABS: ANION GAP 12 (5-15); CARBON DIOXIDE 26 mEQ/L (20-30); CHLORIDE 103 mEQ/L (98-107); CREATININE 0.4 mg/dL (0.7-1.2); GLOMERULAR FILTRATION RATE > 60 mL/min (>60); HEMOLYSIS 0; POTASSIUM 3.2 mEQ/L (3.4-4.9); SODIUM 141 mEQ/L (135-145)
[2016-12-15 06:43] LABS: INR 1.2 (0.9-1.1); PROTHROMBIN TIME 12.5 SEC (9.30-11.50)
[2016-12-15 07:31] VITALS: BP 132/85
[2016-12-15] MEDS ORDERED: Fleet's Enema 133ml RECTAL ONE (08:00)
[2016-12-15] MEDS: Docusate 100mg cap ORAL SCH (08:34)
[2016-12-15] MEDS: Pantoprazole Inj IVP SCH (08:34)
[2016-12-15] MEDS ORDERED: Tubing IV Secondary IV ONE (10:39)
[2016-12-15] MEDS ORDERED: NS 275ml ONE (10:39)
[2016-12-15 11:45] VITALS: BP 127/78
--- NOTE | 2016-12-15 12:44 | Pre-Procedure Note/Attestation ---
Pre-Procedure Note/Attestation Complete Prior to Procedure Planned Procedure: not applicable Procedure Narrative: esophagogastroduodenoscopy and colonoscopy Indications for Procedure Pre-Operative Diagnosis: iron def anemia Attestation I attest that I discussed the nature of the procedure; its benefits; risks and complications; and alternatives (and the risks and benefits of such alternatives ), prior to the procedure, with the patient (or the patient's legal sales representative printing). I attest that, if there was a reasonable possibility of needing a blood transfusion, the patient (or the patient's legal sales representative printing) was given the [facility] standardized written summary, pursuant to the [place] Blood Safety Act ([place] Health and Safety Code # 1645, as amended). I attest that I re-evaluated the patient just prior to the surgery and that there has been no change in the patient's H&P, except as documented below: CASSIE BLOUNT Dec 15, 2016 12:44
--- NOTE | 2016-12-15 13:01 | Infectious Diseases Prog Note ---
Assessment/Plan Assessment/Plan A: The patient is a 56-year-old male with SP leukocytosis possible aspiration pneumonia Respiratory distress. Chest x-ray, increased basilar atelectasis. blood and sputum Cx : Not sent rash on face and arm : not suggestive of scabies Diabetes Hypertension Anemia. CKD. Schizophrenia PLAN: Cont on aztreonam d# 5 / 7 and Flagyl d# 4 / 7 DC vancomycin Monitor CBC. Monitor BMP. Monitor cultures ( urine). Monitor chest x-ray Subjective Allergies: Coded Allergies: PENICILLINS (Verified Allergy, Unknown, 12/12/16) Uncoded Allergies: PCN (Allergy, Unknown, 12/08/16) Subjective afebrile , lethargic Objective Vital Signs Last 24 Hour Vital Signs Date Time Temp Pulse Resp B/P Pulse Ox O2 Delivery O2 Flow Rate FiO2 12/15/16 11:45 98.0 80 20 127/78 97 Venturi Mask 15.0 12/15/16 09:39 Venturi Mask 15.0 55 12/15/16 09:39 96 Venturi Mask 15.0 55 12/15/16 09:39 88 22 Nasal Cannula 3.0 32 12/15/16 07:31 98.2 97 20 132/85 95 Venturi Mask 15.0 12/15/16 04:45 97.8 96 21 134/87 93 Simple Mask 15.0 12/15/16 04:00 97.2 88 20 129/84 99 Room Air 12/15/16 00:00 97.7 98 18 134/87 93 Venturi Mask 55.0 12/14/16 20:22 Nasal Cannula 4.0 36 12/14/16 20:22 96 Nasal Cannula 4.0 36 12/14/16 20:21 88 22 Nasal Cannula 3.0 32 12/14/16 19:43 97.9 91 20 117/65 89 Nasal Cannula 3.0 12/14/16 17:26 97 Nasal Cannula 4.0 36 12/14/16 17:26 Nasal Cannula 4.0 36 12/14/16 16:00 97.3 78 18 102/64 98 Nasal Cannula 4.0 Height (Feet): 5 Height (Inches): 4.00 Weight (Pounds): 145 HEENT: anicteric Respiratory/Chest: normal breath sounds Cardiovascular: regularly irregular Abdomen: no organomegaly Microbiology Date/Time Source Procedure Growth Status 12/13/16 18:00 Urine,Clean Catch Urine Culture - Preliminary NO GROWTH Resulted 12/13/16 18:00 Urine,Clean Catch Urine Culture - Preliminary NO GROWTH AFTER 24 HOURS Resulted Laboratory Tests Test 12/15/16 05:00 12/15/16 10:30 White Blood Count 6.7 K/UL (4.8-10.8) Red Blood Count 3.89 M/UL (4.70-6.10) L Hemoglobin 9.0 G/DL (14.2-18.0) L Hematocrit 30.4 % (42.0-52.0) L Mean Corpuscular Volume 78 FL (80-99) L Mean Corpuscular Hemoglobin 23.0 PG (27.0-31.0) L Mean Corpuscular Hemoglobin Concent 29.4 G/DL (32.0-36.0) L Red Cell Distribution Width 22.1 % (11.6-14.8) H Platelet Count 220 K/UL (150-450) Mean Platelet Volume 5.1 FL (6.5-10.1) L Neutrophils (%) (Auto) 82.8 % (45.0-75.0) H Lymphocytes (%) (Auto) 5.1 % (20.0-45.0) L Monocytes (%) (Auto) 10.4 % (1.0-10.0) H Eosinophils (%) (Auto) 0.7 % (0.0-3.0) Basophils (%) (Auto) 0.9 % (0.0-2.0) Prothrombin Time 12.5 SEC (9.30-11.50) H Prothromb Time International Ratio 1.2 (0.9-1.1) H Activated Partial Thromboplast Time 34 SEC (23-33) H Sodium Level 141 mEQ/L (135-145) Potassium Level 3.2 mEQ/L (3.4-4.9) L Chloride Level 103 mEQ/L (98-107) Carbon Dioxide Level 26 mEQ/L (20-30) Anion Gap 12 (5-15) Blood Urea Nitrogen 6 mg/dL (7-23) L Creatinine 0.4 mg/dL (0.7-1.2) L Estimat Glomerular Filtration Rate > 60 mL/min (>60) Glucose Level 109 mg/dL (74-106) H Calcium Level 9.0 mg/dL (8.6-10.2) Stool Occult Blood Pending Current Medications Medications (Trade) Dose Ordered Sig/Korey Route PRN Reason Start Time Stop Time Status Last Admin Dose Admin Acetaminophen (Tylenol) 650 mg Q4H PRN ORAL fever 12/14/16 10:30 01/13/17 10:29 Al Hydroxide/Mg Hydroxide (Mylanta II) 30 ml Q6H PRN ORAL dyspepsia 12/14/16 13:00 01/13/17 12:59 Albuterol/ Ipratropium (DuoNeb 0.5-3(2.5)mg/3ml) 3 ml Q6HRT PRN HHN sob 12/14/16 13:00 12/19/16 12:59 Aztreonam 1 gm/ Dextrose 55 ml @ 110 mls/hr Q8H IVPB 12/14/16 10:00 12/21/16 09:59 12/15/16 10:18 Dextrose (Dextrose 50%) STAT PRN IV Hypoglycemia 12/15/16 07:00 01/14/17 06:59 Divalproex Sodium (Depakote ER) 1,500 mg BEDTIME ORAL 12/14/16 21:00 01/13/17 20:59 Docusate Sodium (Colace) 100 mg TWICE A DAY ORAL 12/14/16 09:00 01/13/17 08:59 12/15/16 08:34 Hydroxyzine HCl (Atarax) 50 mg Q6H PRN ORAL Itching 12/14/16 08:30 01/13/17 08:29 Insulin Aspart (NovoLOG) BEFORE MEALS AND HS SUBQ 12/14/16 11:30 01/13/17 11:29 12/15/16 11:48 Iron Sucrose 100 mg/Sodium Chloride 60 ml @ 240 mls/hr BEDTIME IVPB 12/14/16 21:00 12/17/16 21:01 12/14/16 21:43 Levothyroxine Sodium (Synthroid) 25 mcg DAILY@0630 ORAL 12/15/16 06:30 01/14/17 06:29 Lorazepam (Ativan 2mg/ml 1ml) 0.5 mg Q4H PRN IV For Anxiety 12/14/16 10:30 12/21/16 10:29 12/15/16 04:28 Metronidazole 100 ml @ 100 mls/hr Q8HR IVPB 12/14/16 14:00 12/21/16 13:59 12/15/16 06:06 Morphine Sulfate (Morphine Sulfate) 1 mg Q4H PRN IVP For Pain 12/14/16 10:30 12/21/16 10:29 12/14/16 14:06 Ondansetron HCl (Zofran) 4 mg Q6H PRN IVP Nausea & Vomiting 12/14/16 12:30 01/13/17 12:29 Pantoprazole (Protonix) 40 mg DAILY IVP 12/14/16 09:00 01/13/17 08:59 12/15/16 08:34 Polyethylene Glycol (Miralax) 17 gm HSPRN PRN ORAL Constipation 12/14/16 18:30 01/13/17 18:29 Promethazine HCl/ Codeine (Phenergan with Codeine) 5 ml Q4H PRN ORAL For Cough 12/14/16 10:30 01/13/17 10:29 Quetiapine Fumarate (SEROquel) 25 mg TID ORAL 12/14/16 09:00 01/13/17 08:59 12/15/16 08:34 Sodium Chloride (Sodium Chloride 1000ml bag) 1,000 ml @ 75 mls/hr [id number] IV 12/14/16 10:00 01/13/17 09:59 12/14/16 23:22 Zolpidem Tartrate (Ambien) 5 mg HSPRN PRN ORAL Insomnia 12/14/16 18:30 01/13/17 18:29 REILLY DELGADO M.D. Dec 15, 2016 13:01
--- NOTE | 2016-12-15 13:01 | General Progress Note ---
Assessment/Plan Problem List: (1) Iron deficiency anemia ICD Codes: D50.9 - Iron deficiency anemia, unspecified SNOMED: 89555464 (2) Anemia ICD Codes: D64.9 - Anemia, unspecified SNOMED: 173109485 Qualifiers: Qualified Codes: D64.9 - Anemia, unspecified (3) HTN (hypertension) ICD Codes: I10 - Essential (primary) hypertension SNOMED: 00956612 (4) Bipolar disorder ICD Codes: F31.9 - Bipolar disorder, unspecified SNOMED: 58043025 (5) Schizophrenia ICD Codes: F20.9 - Schizophrenia, unspecified SNOMED: 72992327 Assessment/Plan esophagogastroduodenoscopy and colonoscopy was canceled by anesthesia patient was too obtunded fu stool ob iv iron consider esophagogastroduodenoscopy and colonoscopy on Sunday if patient still in house Subjective ROS Limited/Unobtainable: No Allergies: Coded Allergies: PENICILLINS (Verified Allergy, Unknown, 12/12/16) Uncoded Allergies: PCN (Allergy, Unknown, 12/08/16) Subjective obtunded Objective Last 24 Hour Vital Signs Date Time Temp Pulse Resp B/P Pulse Ox O2 Delivery O2 Flow Rate FiO2 12/15/16 11:45 98.0 80 20 127/78 97 Venturi Mask 15.0 12/15/16 09:39 Venturi Mask 15.0 55 12/15/16 09:39 96 Venturi Mask 15.0 55 12/15/16 09:39 88 22 Nasal Cannula 3.0 32 12/15/16 07:31 98.2 97 20 132/85 95 Venturi Mask 15.0 12/15/16 04:45 97.8 96 21 134/87 93 Simple Mask 15.0 12/15/16 04:00 97.2 88 20 129/84 99 Room Air 12/15/16 00:00 97.7 98 18 134/87 93 Venturi Mask 55.0 12/14/16 20:22 Nasal Cannula 4.0 36 12/14/16 20:22 96 Nasal Cannula 4.0 36 12/14/16 20:21 88 22 Nasal Cannula 3.0 32 12/14/16 19:43 97.9 91 20 117/65 89 Nasal Cannula 3.0 12/14/16 17:26 97 Nasal Cannula 4.0 36 12/14/16 17:26 Nasal Cannula 4.0 36 12/14/16 16:00 97.3 78 18 102/64 98 Nasal Cannula 4.0 Intake and Output 12/14/16 12/15/16 19:00 07:00 Intake Total 800.0 ml 770 ml Output Total 900 ml 600 ml Balance -100.0 ml 170 ml Intake Oral 120 ml IV Total 680.0 ml 770 ml Output Urine Total 900 ml 200 ml Stool Total 400 ml # Voids 3 # Bowel Movements 2 4 Laboratory Tests 12/15/16 05:00: White Blood Count 6.7, Red Blood Count 3.89L, Hemoglobin 9.0L, Hematocrit 30.4L , Mean Corpuscular Volume 78L, Mean Corpuscular Hemoglobin 23.0L, Mean Corpuscular Hemoglobin Concent 29.4L, Red Cell Distribution Width 22.1H, Platelet Count 220, Mean Platelet Volume 5.1L, Neutrophils (%) (Auto) 82.8H, Lymphocytes (%) (Auto) 5.1L, Monocytes (%) (Auto) 10.4H, Eosinophils (%) (Auto) 0.7, Basophils (%) (Auto) 0.9, Prothrombin Time 12.5H, Prothromb Time International Ratio 1.2H, Activated Partial Thromboplast Time 34H, Sodium Level 141, Potassium Level 3.2L, Chloride Level 103, Carbon Dioxide Level 26, Anion Gap 12, Blood Urea Nitrogen 6L, Creatinine 0.4L, Estimat Glomerular Filtration Rate > 60, Glucose Level 109H, Calcium Level 9.0 12/15/16 10:30: Stool Occult Blood [Pending] Height (Feet): 5 Height (Inches): 4.00 Weight (Pounds): 145 General Appearance: lethargic EENT: normal ENT inspection Neck: supple Cardiovascular: normal rate Respiratory/Chest: decreased breath sounds Abdomen: normal bowel sounds, non tender, soft CASSIE BLOUNT Dec 15, 2016 13:01
[2016-12-15] MEDS ORDERED: AZTREONAM1 GM IJ (15:05)
[2016-12-15] MEDS ORDERED: METRONIDAZOLE500 MG ORAL (15:06)
--- NOTE | 2016-12-15 15:20 | Pulmonology Progress Note ---
Assessment/Plan Problems: (1) Acute respiratory failure (2) Anemia (3) Bipolar disorder (4) Schizophrenia (5) History of CVA (cerebrovascular accident) Assessment/Plan improving respiratory treatment antitussives sputum for c/s low grade fever swallow study continue abx Subjective ROS Limited/Unobtainable: No Interval Events: awake, cofortable Allergies: Coded Allergies: PENICILLINS (Verified Allergy, Unknown, 12/12/16) Uncoded Allergies: PCN (Allergy, Unknown, 12/08/16) Objective Last 24 Hour Vital Signs Date Time Temp Pulse Resp B/P Pulse Ox O2 Delivery O2 Flow Rate FiO2 12/15/16 11:45 98.0 80 20 127/78 97 Venturi Mask 15.0 12/15/16 09:39 Venturi Mask 15.0 55 12/15/16 09:39 96 Venturi Mask 15.0 55 12/15/16 09:39 88 22 Venturi Mask 15.0 55 12/15/16 07:31 98.2 97 20 132/85 95 Venturi Mask 15.0 12/15/16 04:45 97.8 96 21 134/87 93 Simple Mask 15.0 12/15/16 04:00 97.2 88 20 129/84 99 Room Air 12/15/16 00:00 97.7 98 18 134/87 93 Venturi Mask 55.0 12/14/16 20:22 Nasal Cannula 4.0 36 12/14/16 20:22 96 Nasal Cannula 4.0 36 12/14/16 20:21 88 22 Nasal Cannula 3.0 32 12/14/16 19:43 97.9 91 20 117/65 89 Nasal Cannula 3.0 12/14/16 17:26 97 Nasal Cannula 4.0 36 12/14/16 17:26 Nasal Cannula 4.0 36 12/14/16 16:00 97.3 78 18 102/64 98 Nasal Cannula 4.0 Intake and Output 12/14/16 12/15/16 19:00 07:00 Intake Total 800.0 ml 770 ml Output Total 900 ml 600 ml Balance -100.0 ml 170 ml Intake Oral 120 ml IV Total 680.0 ml 770 ml Output Urine Total 900 ml 200 ml Stool Total 400 ml # Voids 3 # Bowel Movements 2 4 Objective General Appearance: WD/WN HEENT: normocephalic, atraumatic Respiratory/Chest: chest wall non-tender, lungs rhonchi Cardiovascular: normal peripheral pulses, normal rate Abdomen: normal bowel sounds, soft, non tender, no organomegaly Extremities: no cyanosis, no clubbing Skin: no rash Microbiology Date/Time Source Procedure Growth Status 12/13/16 18:00 Urine,Clean Catch Urine Culture - Preliminary NO GROWTH Resulted 12/13/16 18:00 Urine,Clean Catch Urine Culture - Preliminary NO GROWTH AFTER 24 HOURS Resulted Laboratory Tests 12/15/16 05:00: White Blood Count 6.7, Red Blood Count 3.89L, Hemoglobin 9.0L, Hematocrit 30.4L , Mean Corpuscular Volume 78L, Mean Corpuscular Hemoglobin 23.0L, Mean Corpuscular Hemoglobin Concent 29.4L, Red Cell Distribution Width 22.1H, Platelet Count 220, Mean Platelet Volume 5.1L, Neutrophils (%) (Auto) 82.8H, Lymphocytes (%) (Auto) 5.1L, Monocytes (%) (Auto) 10.4H, Eosinophils (%) (Auto) 0.7, Basophils (%) (Auto) 0.9, Prothrombin Time 12.5H, Prothromb Time International Ratio 1.2H, Activated Partial Thromboplast Time 34H, Sodium Level 141, Potassium Level 3.2L, Chloride Level 103, Carbon Dioxide Level 26, Anion Gap 12, Blood Urea Nitrogen 6L, Creatinine 0.4L, Estimat Glomerular Filtration Rate > 60, Glucose Level 109H, Calcium Level 9.0 12/15/16 10:30: Stool Occult Blood [Pending] Current Medications Medications (Trade) Dose Ordered Sig/[place] Route PRN Reason Start Time Stop Time Status Last Admin Dose Admin Acetaminophen (Tylenol) 650 mg Q4H PRN ORAL fever 12/14/16 10:30 01/13/17 10:29 Al Hydroxide/Mg Hydroxide (Mylanta II) 30 ml Q6H PRN ORAL dyspepsia 12/14/16 13:00 01/13/17 12:59 Albuterol/ Ipratropium (DuoNeb 0.5-3(2.5)mg/3ml) 3 ml Q6HRT PRN HHN sob 12/14/16 13:00 12/19/16 12:59 Aztreonam 1 gm/ Dextrose 55 ml @ 110 mls/hr Q8H IVPB 12/14/16 10:00 12/21/16 09:59 12/15/16 10:18 Dextrose (Dextrose 50%) STAT PRN IV Hypoglycemia 12/15/16 07:00 01/14/17 06:59 Divalproex Sodium (Depakote ER) 1,500 mg BEDTIME ORAL 12/14/16 21:00 01/13/17 20:59 Docusate Sodium (Colace) 100 mg TWICE A DAY ORAL 12/14/16 09:00 01/13/17 08:59 12/15/16 08:34 Hydroxyzine HCl (Atarax) 50 mg Q6H PRN ORAL Itching 12/14/16 08:30 01/13/17 08:29 Insulin Aspart (NovoLOG) BEFORE MEALS AND HS SUBQ 12/14/16 11:30 01/13/17 11:29 12/15/16 11:48 Iron Sucrose 100 mg/Sodium Chloride 60 ml @ 240 mls/hr BEDTIME IVPB 12/14/16 21:00 12/17/16 21:01 12/14/16 21:43 Levothyroxine Sodium (Synthroid) 25 mcg DAILY@0630 ORAL 12/15/16 06:30 01/14/17 06:29 Lorazepam (Ativan 2mg/ml 1ml) 0.5 mg Q4H PRN IV For Anxiety 12/14/16 10:30 12/21/16 10:29 12/15/16 04:28 Metronidazole 100 ml @ 100 mls/hr Q8HR IVPB 12/14/16 14:00 12/21/16 13:59 12/15/16 14:25 Morphine Sulfate (Morphine Sulfate) 1 mg Q4H PRN IVP For Pain 12/14/16 10:30 12/21/16 10:29 12/14/16 14:06 Ondansetron HCl (Zofran) 4 mg Q6H PRN IVP Nausea & Vomiting 12/14/16 12:30 01/13/17 12:29 Pantoprazole (Protonix) 40 mg DAILY IVP 12/14/16 09:00 01/13/17 08:59 12/15/16 08:34 Polyethylene Glycol (Miralax) 17 gm HSPRN PRN ORAL Constipation 12/14/16 18:30 01/13/17 18:29 Promethazine HCl/ Codeine (Phenergan with Codeine) 5 ml Q4H PRN ORAL For Cough 12/14/16 10:30 01/13/17 10:29 Quetiapine Fumarate (SEROquel) 25 mg TID ORAL 12/14/16 09:00 01/13/17 08:59 12/15/16 08:34 Sodium Chloride (Sodium Chloride 1000ml bag) 1,000 ml @ 75 mls/hr [id number] IV 12/14/16 10:00 01/13/17 09:59 12/15/16 12:40 Zolpidem Tartrate (Ambien) 5 mg HSPRN PRN ORAL Insomnia 12/14/16 18:30 01/13/17 18:29 BRAXTON SUAREZ Dec 15, 2016 15:20
[2016-12-15 15:50] VITALS: BP 102/67
--- NOTE | 2016-12-16 00:30 | Progress Note ---
DATE: 12/15/2016 SUBJECTIVE: The patient continues to be presenting with waxing waning consciousness, not engaged during the evaluation, has episodes of agitation, and mood lability. OBJECTIVE: MENTAL STATUS EXAMINATION: The patient is awake, in no acute distress and calm during the evaluation. Mood is labile. Affect is constricted. Congruent mood. Thought process is concrete. Thought content, no suicidal or homicidal ideation. ASSESSMENT: Stable. PLAN: We will continue to follow and readjust the medications. Dale Galicia M.D. DR: Daisy JOB#: [id number] CC:
--- NOTE | 2016-12-19 03:31 | Discharge Summary 2 SIG ---
DATE OF ADMISSION: 12/08/2016 DATE OF DISCHARGE: 12/15/2016 REASON FOR ADMISSION: 56-year-old male with past medical history of diabetes, hypertension, CVA, anemia, chronic kidney disease, schizophrenia, and bipolar, was sent from the residential facility for low hemoglobin. In the emergency department, hemoglobin -7.6, hematocrit 2-6.8. The patient received two units of packed red blood cells in the the emergency department. Blood sugar was 300. No elevated anion gap. Stable potassium and bicarbonate, unlikely DKA. Pulse oximetry was 91% on the room air. Sodium -130. The patient was admitted for further management. ADMITTING DIAGNOSES: 1. Anemia. 2. Hyperglycemia. 3. Diabetes. 4. Hyponatremia. 5. Hypertension. 6. Rash with pruritus, 7. possible scabies. 8. Elevated TSH. 9. Schizophrenia. HOSPITAL COURSE: The patient initially was admitted to medical/surgical floor. Anemia workup initiated and revealed iron deficiency anemia. The patient was started on IV Venofer. Stool OB was not collected. Hemoglobin and hematocrit were stable. The patient was scheduled for EGD and colonoscopy , all blood thinners were on hold. The patient was on clear liquid diet. However, anesthesiologist canceled the procedure. GI recommended this procedure as outpatient. On 12/11/2016, the patient developed acute respiratory failure and needed to be placed on nonrebreathing mask and later on the BiPAP. Cardiology consult was requested. On the next day, the patient also had leukocytosis -17.7. Infectious Disease doctor and Cardiology consults were requested. Infectious Disease placed the patient on empiric antibiotics. Chest x-ray revealed left lower lobe infiltrate. FiO2 was titrated to keep saturation above 92%. Antitussive provided as needed. Pulmonary toilet in form of handheld nebulizing treatment was provided. Sputum culture was not collected. Urine culture was negative. Veneer Sander seen and evaluated the patient and stated that the dyspnea was likely due to respiratory problems, namely pneumonia . Venous duplex of bilateral extremity was negative. Echo revealed no clinical evidence of heart failure. Ejection fraction 55%. Right ventricular systolic pressure of 29. Blood pressure was stable without any antihypertensive initially, then resumed current antihypertensive. After treatment with antibiotics, the patient clinically improved. Leukocytosis resolved. The patient was able to be weaned to oxygen via nasal cannula. Pulse oximetry was stable. Blood sugar was managed with sliding scale of insulin. Hemoglobin A1c -5.6. Closely monitor blood sugar at the residential facility and optimize further treatment as needed. Hyponatremia was likely depletional. Patient was started on intravenous fluids with normal saline and sodium stabilized. Renal parameters were stable. The patient had no known history of hypothyroidism. Noted elevated TSH and low free T4 and T3 . The patient was started on low dose of the Synthroid. Check thyroid panel in one month. Treatment with permethrin was given. Antipyretic provided as needed. The patient was kept on the contact isolation. Wound nurse seen and evaluated the patient. According to Infectious Disease, rash appeared on the face and arms and was not suggestive of scabies. Psych evaluation was done. Depakote was changed to once daily, extended release. The patient was started on Seroquel as well as needed Haldol and Ativan. Patient was able to tolerate diet. Swallow evaluation was done, and diet was modified as per speech therapy recommendations with aspiration precaution and one-to- one supervision. According to the speech therapist, the patient had grossly functional swallowing with thin liquids via straw. Speech therapist recommended to change diet to nectar thick liquids and mechanical soft chopped diet. Aspiration reflux precaution and assistance of meals to be done at the residential facility. The patient was cleared for discharge to residential facility. . DISCHARGE DIAGNOSES: 1. Iron deficiency anemia, status post blood transfusion. 2. Acute hypoxemic respiratory failure. 3. Aspiration pneumonia. 4. Dyspnea, likely secondary to aspiration pneumonia 5. New onset of hypothyroidism, 5. Diabetes mellitus with hyperglycemia. 6. Rash with pruritus. 7. Hypertension 7. Delirium secondary to general medical condition. 9. Schizophrenia. 10. Bipolar disorder. 11. Dysphagia 12. New onset of hypothyroidism DISCHARGE MEDICATIONS: See medication reconciliation list. Continue antibiotic as outlined by Infectious Disease in medication reconciliation list for four more days. DISCHARGE INSTRUCTIONS: The patient was discharged to residential facility. FOLLOWUP: Follow up with medical doctor at the facility. Bill Roman M.D. [facility] DR: John JOB#: [id number] CC: ZAID
== END 2016-12-15 16:41 | DRG 137 ==
LOC: EMR 16:50 → 4E 17:12 → EDBEDREQ 17:30 → 4E 12-09 06:52 → 2E 12-11 20:30 → 2W 12-12 01:20 → 4W 12-14 06:45
PROC: 30233N1 Transfusion of Nonautologous Red Blood Cells into Peripheral Vein, Percutaneous Approach (ICD-10-PCS; 2016-12-08)
PROC: 5A09357 Assistance with Respiratory Ventilation, Less than 24 Consecutive Hours, Continuous Positive Airway Pressure (ICD-10-PCS; principal; 2016-12-12)
DX: J69.0 Pneumonitis due to inhalation of food and vomit (principal); J96.01 Acute respiratory failure with hypoxia; I12.0 Hypertensive chronic kidney disease with stage 5 chronic kidney disease or end stage renal disease; E87.1 Hypo-osmolality and hyponatremia; F05 Delirium due to known physiological condition; R13.10 Dysphagia, unspecified; E11.22 Type 2 diabetes mellitus with diabetic chronic kidney disease; B86 Scabies; D64.9 Anemia, unspecified; E11.65 Type 2 diabetes mellitus with hyperglycemia; I12.9 Hypertensive chronic kidney disease with stage 1 through stage 4 chronic kidney disease, or unspecified chronic kidney disease; N18.9 Chronic kidney disease, unspecified; F20.9 Schizophrenia, unspecified; F31.9 Bipolar disorder, unspecified; Z88.0 Allergy status to penicillin; Z86.73 Personal history of transient ischemic attack (TIA), and cerebral infarction without residual deficits; D50.9 Iron deficiency anemia, unspecified; E03.9 Hypothyroidism, unspecified; D63.1 Anemia in chronic kidney disease
CPT/HCPCS: 36415; 71010; 80048; 80053; 80061; 81001; 82270; 82378; 82607; 82728; 82746; 82962; 82977; 83036; 83540; 83550; 83615; 83735; 83880; 83930; 83935; 84100; 84300; 84439; 84443; 84481; 84550; 85007; 85025; 85044; 85060; 85610; 85651; 85730; 86140; 86850; 86900; 86901; 86920; 87081; 87086; 93306; 93970; 94660; 94664; 94760; J1815; J7620; J8499

== ENCOUNTER 2017-01-26 16:56 | Inpatient (IN) | payer MEDICAID ==
[~2017-01-26] VITALS: Ht 188 cm; Wt 79.8 kg
[~2017-01-26 16:56] MED LIST: ASPIRIN81 MG ORAL; AZTREONAM1 GM IJ; BENAZEPRIL HCL40 MG ORAL; COLACE100 MG ORAL; DEPAKOTE ER500 MG ORAL; DULCOLAX10 MG RC; FERROUS SULFAT325 MG ORAL; FLEET ENEMA133 ML RECTAL; GLUCOTROL5 MG ORAL; METRONIDAZOLE500 MG ORAL; MILK OF MA400 MG/51 ORAL; MULTIVITAMINS1 EAC2 ORAL; NORVASC10 MG ORAL; RESTORIL15 MG ORAL; SENNA8.6 M2 PO; TRAZODONE HCL150 MG ORAL; TYLENOL WITH C1 EAC2 ORAL; TYLENOL650 MG PR; VITAMIN C500 M1 ORAL; ZOCOR20 M1 ORAL; ZOFRAN4 M3 ORAL
[2017-01-26] MEDS ORDERED: SYNTHROID25 MCG ORAL (17:33)
[2017-01-26] MEDS ORDERED: TRAZODONE HCL150 MG ORAL (17:33)
[2017-01-26] MEDS ORDERED: SEROQUEL25 MG ORAL (17:33)
[2017-01-26] MEDS ORDERED: DUONEB 0.5-3(2.53 ML HHN (17:34)
[2017-01-26] MEDS ORDERED: Famotidine 20 MG/ 2ML VIAL IVP ONE (17:45)
--- NOTE | 2017-01-26 18:03 | Emergency Room Report ---
History of Present Illness General Chief Complaint: Abnormal Labs Source: Patient, Medical Record, EMS Present Illness HPI Patient 56-year-old male sent in from nursing facility after abnormal laboratory testing. Patient noted have anemia on laboratory testing. The patient had prior history of type 2 diabetes and schizophrenia. The patient also had history of chronic kidney disease. History is markedly limited by patient's poor historian Allergies: Coded Allergies: PENICILLINS (Verified Allergy, Unknown, 12/12/16) SHELLFISH DERIVED (Unverified Allergy, Unknown, 01/26/17) Patient History Reviewed Nursing Documentation: PMH: Agreed, PSxH: Agreed Nursing Documentation-PMH Hx Cardiac Problems: Yes Hx Hypertension: Yes Hx Pacemaker: No Hx Diabetes: Yes Hx Cancer: No Hx Gastrointestinal Problems: No - ckd, anemia History Of Psychiatric Problem: Yes - bipolar Hx Neurological Problems: Yes - hyperthyroid Hx Cerebrovascular Accident: Yes - hemiplegia Hx Dementia: Yes Hx Seizures: No Review of Systems All Other Systems: limited - by mental status Physical Exam Vital Signs Date Time Temp Pulse Resp B/P Pulse Ox O2 Delivery O2 Flow Rate FiO2 01/26/17 16:59 97.9 78 16 160/80 98 Room Air Sp02 EP Interpretation: reviewed, normal General Appearance: normal inspection, well appearing, no apparent distress, alert, Chronically Ill Head: atraumatic ENT: normal ENT inspection, hearing grossly normal, normal voice Neck: normal inspection, full range of motion, supple, no bony tend Respiratory: normal inspection, lungs clear, normal breath sounds, no respiratory distress, no retraction, no wheezing Cardiovascular #1: regular rate, rhythm, no edema Gastrointestinal: normal inspection, normal bowel sounds, non tender, soft, no guarding, no hernia Genitourinary: no CVA tenderness Musculoskeletal: normal inspection, back normal, decreased range of motion - left upper extremiity Neurologic: normal inspection, alert, responsive, speech normal, motor weakness - left upper extremitiy Psychiatric: normal inspection, mood/affect normal Skin: no rash, other - forehead skin lesion Medical Decision Making Diagnostic Impression: Primary Impression: Anemia Additional Impressions: Schizophrenia CKD (chronic kidney disease) History of CVA (cerebrovascular accident) Hyperkalemia Renal insufficiency ER Course Patient presented for anemia. Differential diagnosis included was not limited to anemia chronic disease, GI bleed, iron deficiency, among others.Because of complexity of patient's case laboratory testing and imaging studies were ordered.The patient was noted to have anemia. Testing showed a hemoglobin of 7.9. Patient noted be mildly hyperkalemic. The patient also noted to have evidence of acute renal insufficiency. Dr. Roman was contacted for inpatient management due to complexity of medical condition. Labs Test 01/26/17 18:44 01/26/17 19:05 Urine Color Pale yellow Urine Appearance Slightly cloudy Urine pH 6.5 (4.5-8.0) Urine Specific [place] 1.005 (1.005-1.035) Urine Protein 3+ (NEGATIVE) Urine Glucose (UA) Negative (NEGATIVE) Urine Ketones Negative (NEGATIVE) Urine Occult Blood 5+ (NEGATIVE) Urine Nitrite Negative (NEGATIVE) Urine Bilirubin Negative (NEGATIVE) Urine Urobilinogen Normal MG/DL (0.0-1.0) Urine Leukocyte Esterase Negative (NEGATIVE) Urine RBC Tntc /HPF (0 - 0) Urine WBC 0-2 /HPF (0 - 0) Urine Squamous Epithelial Cells None /LPF (NONE/OCC) Urine Bacteria Occasional /HPF (NONE) White Blood Count 6.6 K/UL (4.8-10.8) Red Blood Count 3.31 M/UL (4.70-6.10) Hemoglobin 7.9 G/DL (14.2-18.0) Hematocrit 26.1 % (42.0-52.0) Mean Corpuscular Volume 79 FL (80-99) Mean Corpuscular Hemoglobin 24.0 PG (27.0-31.0) Mean Corpuscular Hemoglobin Concent 30.4 G/DL (32.0-36.0) Red Cell Distribution Width 21.7 % (11.6-14.8) Platelet Count 263 K/UL (150-450) Mean Platelet Volume 3.8 FL (6.5-10.1) Neutrophils (%) (Auto) % (45.0-75.0) Lymphocytes (%) (Auto) % (20.0-45.0) Monocytes (%) (Auto) % (1.0-10.0) Eosinophils (%) (Auto) % (0.0-3.0) Basophils (%) (Auto) % (0.0-2.0) Differential Total Cells Counted 100 Neutrophils % (Manual) 80 % (45-75) Lymphocytes % (Manual) 10 % (20-45) Monocytes % (Manual) 8 % (1-10) Eosinophils % (Manual) 2 % (0-3) Basophils % (Manual) 0 % (0-2) Band Neutrophils 0 % (0-8) Platelet Estimate Adequate Platelet Morphology Normal Polychromasia 1+ Hypochromasia 1+ Anisocytosis 2+ Microcytosis 2+ Prothrombin Time 11.0 SEC (9.30-11.50) Prothromb Time International Ratio 1.1 (0.9-1.1) Activated Partial Thromboplast Time 35 SEC (23-33) Sodium Level 135 mEQ/L (135-145) Potassium Level 5.2 mEQ/L (3.4-4.9) Chloride Level 101 mEQ/L (98-107) Carbon Dioxide Level 19 mEQ/L (20-30) Anion Gap 15 (5-15) Blood Urea Nitrogen 69 mg/dL (7-23) Creatinine 3.1 mg/dL (0.7-1.2) Estimat Glomerular Filtration Rate 21.0 mL/min (>60) Glucose Level 192 mg/dL (74-106) Calcium Level 9.9 mg/dL (8.6-10.2) Total Bilirubin 0.3 mg/dL (0.0-1.2) Aspartate Amino Transf (AST/SGOT) 8 U/L (5-40) Alanine Aminotransferase (ALT/SGPT) 6 U/L (3-41) Alkaline Phosphatase 168 U/L (40-129) Total Protein 9.1 g/dL (6.6-8.7) Albumin 2.1 g/dL (3.5-5.2) Globulin 7.0 g/dL Albumin/Globulin Ratio 0.3 (1.0-2.7) Lipase 59 U/L (< 60) Last Vital Signs Date Time Temp Pulse Resp B/P Pulse Ox O2 Delivery O2 Flow Rate FiO2 01/26/17 16:59 97.9 78 16 160/80 98 Room Air Status: unchanged Disposition: ADMITTED INPATIENT Condition: Serious Referrals: NON PHYSICIAN (PCP) Ty Barbosa Jan 26, 2017 18:03
[2017-01-26 18:41] VITALS: BP 111/63
[2017-01-26 19:01] LABS: APPEARANCE,URINE SLIGHTLY CLOUDY; KETONES,URINE NEGATIVE (NEGATIVE); LEUKOCYTE ESTERASE ,URINE NEGATIVE (NEGATIVE); NITRITE,URINE NEGATIVE (NEGATIVE); PH,URINE 6.5 (4.5-8.0); PROTEIN,URINE 3+ (NEGATIVE); UROBILINOGEN,URINE NORMAL MG/DL (0.0-1.0)
[2017-01-26] MEDS ORDERED: ZOLPIDEM TARTRAT5 MG ORAL (19:18)
[2017-01-26] MEDS ORDERED: ACETAMINOPHEN325 M1 ORAL (19:25)
[2017-01-26] MEDS ORDERED: PROTONIX40 MG ORAL (19:28)
[2017-01-26] MEDS ORDERED: ALUM-MAG HYDRO360 ML PO (19:34)
[2017-01-26 19:41] LABS: RBC,URINE TNTC /HPF (0 - 0); WBC,URINE 0-2 /HPF (0 - 0)
[2017-01-26 19:41] LABS: MEAN CORPUSCULAR HGB CONC 30.4 G/DL (32.0-36.0); MEAN CORPUSCULAR VOLUME 79 FL (80-99); MEAN PLATELET VOLUME 3.8 FL (6.5-10.1); PLATELET COUNT 263 K/UL (150-450); RED BLOOD COUNT 3.31 M/UL (4.70-6.10); RED CELL DISTRIBUTION WIDTH 21.7 % (11.6-14.8); WHITE BLOOD COUNT 6.6 K/UL (4.8-10.8)
[2017-01-26 19:42] LABS: BACTERIA,URINE OCCASIONAL /HPF
[2017-01-26 19:45] LABS: ALBUMIN/GLOBULIN RATIO 0.3 (1.0-2.7); CALCIUM 9.9 mg/dL (8.6-10.2); CREATININE 3.1 mg/dL (0.7-1.2); POTASSIUM 5.2 mEQ/L (3.4-4.9); TOTAL PROTEIN 9.1 g/dL (6.6-8.7)
[2017-01-26 19:46] LABS: INR 1.1 (0.9-1.1)
[2017-01-26 20:24] LABS: EOSINOPHILS % (MANUAL) 2 % (0-3); LYMPHOCYTES % (MANUAL) 10 % (20-45); NEUTROPHILS % (MANUAL) 80 % (45-75); TOTAL CELLS COUNTED 100
[2017-01-26 20:25] LABS: BAND NEUTROPHILS % (MANUAL) 0 % (0-8); BASOPHILS % (MANUAL) 0 % (0-2); PLATELET ESTIMATE ADEQUATE
[2017-01-26 20:26] LABS: ANISOCYTOSIS 2+; HYPOCHROMASIA 1+; MICROCYTES 2+; PLATELET MORPHOLOGY NORMAL; POLYCHROMASIA 1+
[2017-01-26 20:50] VITALS: BP 124/59
[2017-01-26] MEDS ORDERED: Mylanta II UD 30ml ORAL PRN (22:15)
[2017-01-26] MEDS ORDERED: Morphine Sulfate 2mg/ml Inj IVP PRN (22:15)
[2017-01-26] MEDS ORDERED: Miralax 17gm pkt ORAL PRN (22:15)
[2017-01-26] MEDS ORDERED: Zolpidem 5mg tab ORAL PRN (22:15)
[2017-01-26] MEDS ORDERED: LORazepam Inj 2mg/ml 1ml IV PRN (22:15)
[2017-01-26 22:30] VITALS: BP 115/65
[2017-01-27] VITALS: BP 119/76
[2017-01-27 04:00] VITALS: BP 116/75
[2017-01-27] MEDS: Levothyroxine 25mcg tab ORAL SCH (05:33)
[2017-01-27] MEDS: NovoLOG Insulin Flexpen SUBQ SCH ×4 (06:30→20:58)
[2017-01-27 07:16] LABS: EOSINOPHILS % (AUTO) 0.9 % (0.0-3.0); LYMPHOCYTES % (AUTO) 6.9 % (20.0-45.0); MEAN CORPUSCULAR HEMOGLOBIN 22.9 PG (27.0-31.0); MEAN CORPUSCULAR HGB CONC 28.6 G/DL (32.0-36.0); MEAN CORPUSCULAR VOLUME 80 FL (80-99); MONOCYTES % (AUTO) 12.6 % (1.0-10.0); NEUTROPHILS % (AUTO) 78.6 % (45.0-75.0); PLATELET COUNT 316 K/UL (150-450); RED BLOOD COUNT 3.57 M/UL (4.70-6.10); RED CELL DISTRIBUTION WIDTH 21.6 % (11.6-14.8); WHITE BLOOD COUNT 6.4 K/UL (4.8-10.8)
[2017-01-27 07:37] LABS: ALBUMIN/GLOBULIN RATIO 0.3 (1.0-2.7); CALCIUM 10.1 mg/dL (8.6-10.2); CHOLESTEROL/HDL RATIO 3.2 (3.3-4.4); CREATININE 3.3 mg/dL (0.7-1.2); GLOMERULAR FILTRATION RATE 19.6 mL/min (>60); POTASSIUM 5.3 mEQ/L (3.4-4.9); TOTAL PROTEIN 9.7 g/dL (6.6-8.7)
--- NOTE | 2017-01-27 07:55 | History and Physical ---
History of Present Illness General Date patient seen: Jan 27, 2017 Time patient seen: 07:30 Reason for Hospitalization: Abnormal Labs Present Illness HPI 56-year-old male with PMH of DM, HTN, CKD, hx of CVA, hypothyroidism, schizophrenia, bipolar disorder, was sent in from the nursing facility with abnormal laboratory testing revealing anemia . Patient is a poor historian and unable to provide additional information. Workup in ED revealed no leukocytosis HH on presentation -7.9/26.1 and this am 8.2/28.6 K-5.2, this am K-5.3 renal parameters with BUN/creat-69/3.1 and this am 68/3.1 UA with no evidence of UTI but with hematuria patient was admitted fro further management Allergies: Coded Allergies: PENICILLINS (Verified Allergy, Unknown, 12/12/16) SHELLFISH DERIVED (Unverified Allergy, Unknown, 01/26/17) Medication History Scheduled Amlodipine Besylate (Norvasc), 10 MG ORAL DAILY, (Reported) Benazepril Hcl* (Benazepril Hcl*), 40 MG ORAL DAILY, (Reported) Divalproex Sodium* (Depakote Er*), 500 MG ORAL TID, (Reported) Docusate Sodium* (Colace*), 100 MG ORAL DAILY, (Reported) Glipizide* (Glucotrol*), 5 MG ORAL ACBREAKFAST, (Reported) Levothyroxine Sodium* (Synthroid*), 25 MCG ORAL DAILY, (Reported) Na Phos,M-B/Na Phos,Di-Ba* (Fleet Enema*), 133 ML RECTAL DAILY, (Reported) Pantoprazole* (Protonix*), 40 MG ORAL DAILY, (Reported) Quetiapine Fumarate* (Seroquel*), 25 MG ORAL THREE TIMES A DAY, (Reported) Sennosides (Senna), 2 TAB PO BEDTIME, (Reported) Simvastatin (Zocor), 20 MG ORAL BEDTIME, (Reported) Trazodone* (Trazodone*), 75 MG ORAL BEDTIME, (Reported) Scheduled PRN Acetaminophen* (Acetaminophen 325MG Tablet*), 650 MG ORAL Q4H PRN for Fever/ Headache/Mild Pain, (Reported) Bisacodyl (Dulcolax), 10 MG RC NEEDED PRN for Constipation, (Reported) Mag Hydrox/Al Hydrox/Simeth (Alum-Mag Hydroxide-Simeth Liq), 30 ML PO EVERY 6 HOURS PRN for STOMACH UPSET, (Reported) Magnesium Hydroxide* (Milk Of Magnesia*), 30 ML ORAL DAILY PRN for Constipation, (Reported) Ondansetron* (Zofran*), 4 MG ORAL Q6H PRN for Nausea & Vomiting, (Reported) Zolpidem Tartrate* (Zolpidem Tartrate*), 5 MG ORAL BEDTIME PRN for Insomnia, ( Reported) Miscellaneous Medications Ipratropium/Albuterol Sulfate (DuoNeb 0.5-3(2.5)mg/3ml), 3 ML HHN, (Reported) Discontinued Medications Acetaminophen With Codeine (T#3) (Tylenol With Codeine #3 Tablet), 1 TAB ORAL Q6HR PRN for For Pain, (Reported) Discontinued Reason: Pt stopped taking med Ascorbic Acid* (Vitamin C*), 500 MG ORAL DAILY, (Reported) Discontinued Reason: Pt stopped taking med Aspirin* (Aspirin*), 81 MG ORAL DAILY, (Reported) Discontinued Reason: Pt stopped taking med Aztreonam (Aztreonam), 1 GM IJ EVERY 8 HOURS Discontinued Reason: Therapy completed Ferrous Sulfate* (Ferrous Sulfate*), 325 MG ORAL DAILY, (Reported) Discontinued Reason: Pt stopped taking med Metronidazole* (Flagyl*), 500 MG ORAL EVERY 8 HOURS Discontinued Reason: Therapy completed Multivitamins* (Multivitamins*), 1 TAB ORAL DAILY, (Reported) Discontinued Reason: Pt stopped taking med Temazepam* (Restoril*), 15 MG ORAL BEDTIME PRN for Insomnia, (Reported) Discontinued Reason: Pt stopped taking med Patient History History Provided By: Medical Record, EMS Healthcare decision maker N Resuscitation status Full Code Advanced Directive on File No Past Medical/Surgical History Past Medical/Surgical History: (1) Diabetes (2) HTN (hypertension) (3) Schizophrenia (4) CKD (chronic kidney disease) (5) History of CVA (cerebrovascular accident) (6) Bipolar disorder (7) Hypothyroidism Review of Systems ROS Narrative unable to obtain due to patient's lack of ability to provide information Physical Exam General Appearance: no apparent distress, alert Lines, tubes and drains: peripheral HEENT: normocephalic, atraumatic, anicteric, mucous membranes moist Neck: supple Respiratory/Chest: lungs clear, no respiratory distress, no accessory muscle use Cardiovascular/Chest: regular rhythm, tachycardia Abdomen: normal bowel sounds, non tender, soft Extremities: non-tender, no calf tenderness, normal capillary refill Neurologic: alert Musculoskeletal: normal muscle bulk Last 24 Hour Vital Signs Date Time Temp Pulse Resp B/P Pulse Ox O2 Delivery O2 Flow Rate FiO2 01/27/17 04:00 102 01/27/17 04:00 98.1 85 20 116/75 91 Nasal Cannula 2.0 01/27/17 01:00 97 01/27/17 00:00 97.7 87 20 119/76 90 Nasal Cannula 2.0 01/26/17 22:30 97.1 98 20 115/65 98 Nasal Cannula 2.0 01/26/17 21:54 102 24 118/63 95 Nasal Cannula 2.0 01/26/17 20:50 97.9 102 24 124/59 95 Room Air 2.0 01/26/17 18:41 97.9 93 16 111/63 98 Room Air 01/26/17 16:59 97.9 78 16 160/80 98 Room Air Intake and Output 01/26/17 01/27/17 19:00 07:00 Intake Total 60 ml Balance 60 ml Intake Oral 60 ml # Voids 4 # Bowel Movements 1 Laboratory Tests Test 01/26/17 18:44 01/26/17 19:05 01/27/17 05:20 Urine Color Pale yellow Urine Appearance Slightly cloudy Urine pH 6.5 (4.5-8.0) Urine Specific [place] 1.005 (1.005-1.035) Urine Protein 3+ (NEGATIVE) H Urine Glucose (UA) Negative (NEGATIVE) Urine Ketones Negative (NEGATIVE) Urine Occult Blood 5+ (NEGATIVE) H Urine Nitrite Negative (NEGATIVE) Urine Bilirubin Negative (NEGATIVE) Urine Urobilinogen Normal MG/DL (0.0-1.0) Urine Leukocyte Esterase Negative (NEGATIVE) Urine RBC Tntc /HPF (0 - 0) H Urine WBC 0-2 /HPF (0 - 0) Urine Squamous Epithelial Cells None /LPF (NONE/OCC) Urine Bacteria Occasional /HPF (NONE) White Blood Count 6.6 K/UL (4.8-10.8) 6.4 K/UL (4.8-10.8) Red Blood Count 3.31 M/UL (4.70-6.10) L 3.57 M/UL (4.70-6.10) L Hemoglobin 7.9 G/DL (14.2-18.0) L 8.2 G/DL (14.2-18.0) L Hematocrit 26.1 % (42.0-52.0) L 28.6 % (42.0-52.0) L Mean Corpuscular Volume 79 FL (80-99) L 80 FL (80-99) Mean Corpuscular Hemoglobin 24.0 PG (27.0-31.0) L 22.9 PG (27.0-31.0) L Mean Corpuscular Hemoglobin Concent 30.4 G/DL (32.0-36.0) L 28.6 G/DL (32.0-36.0) L Red Cell Distribution Width 21.7 % (11.6-14.8) H 21.6 % (11.6-14.8) H Platelet Count 263 K/UL (150-450) 316 K/UL (150-450) Mean Platelet Volume 3.8 FL (6.5-10.1) L 4.0 FL (6.5-10.1) L Neutrophils (%) (Auto) % (45.0-75.0) 78.6 % (45.0-75.0) H Lymphocytes (%) (Auto) % (20.0-45.0) 6.9 % (20.0-45.0) L Monocytes (%) (Auto) % (1.0-10.0) 12.6 % (1.0-10.0) H Eosinophils (%) (Auto) % (0.0-3.0) 0.9 % (0.0-3.0) Basophils (%) (Auto) % (0.0-2.0) 1.0 % (0.0-2.0) Differential Total Cells Counted 100 Neutrophils % (Manual) 80 % (45-75) H Lymphocytes % (Manual) 10 % (20-45) L Monocytes % (Manual) 8 % (1-10) Eosinophils % (Manual) 2 % (0-3) Basophils % (Manual) 0 % (0-2) Band Neutrophils 0 % (0-8) Platelet Estimate Adequate Platelet Morphology Normal Polychromasia 1+ Hypochromasia 1+ Anisocytosis 2+ Microcytosis 2+ Prothrombin Time 11.0 SEC (9.30-11.50) Prothromb Time International Ratio 1.1 (0.9-1.1) Activated Partial Thromboplast Time 35 SEC (23-33) H Sodium Level 135 mEQ/L (135-145) 136 mEQ/L (135-145) Potassium Level 5.2 mEQ/L (3.4-4.9) H 5.3 mEQ/L (3.4-4.9) H Chloride Level 101 mEQ/L (98-107) 100 mEQ/L (98-107) Carbon Dioxide Level 19 mEQ/L (20-30) L 21 mEQ/L (20-30) Anion Gap 15 (5-15) 15 (5-15) Blood Urea Nitrogen 69 mg/dL (7-23) H 71 mg/dL (7-23) H Creatinine 3.1 mg/dL (0.7-1.2) H 3.3 mg/dL (0.7-1.2) H Estimat Glomerular Filtration Rate 21.0 mL/min (>60) 19.6 mL/min (>60) Glucose Level 192 mg/dL (74-106) H 97 mg/dL (74-106) Calcium Level 9.9 mg/dL (8.6-10.2) 10.1 mg/dL (8.6-10.2) Total Bilirubin 0.3 mg/dL (0.0-1.2) 0.3 mg/dL (0.0-1.2) Aspartate Amino Transf (AST/SGOT) 8 U/L (5-40) 8 U/L (5-40) Alanine Aminotransferase (ALT/SGPT) 6 U/L (3-41) 5 U/L (3-41) Alkaline Phosphatase 168 U/L (40-129) H 173 U/L (40-129) H Total Protein 9.1 g/dL (6.6-8.7) H 9.7 g/dL (6.6-8.7) H Albumin 2.1 g/dL (3.5-5.2) L 2.3 g/dL (3.5-5.2) L Globulin 7.0 g/dL 7.4 g/dL Albumin/Globulin Ratio 0.3 (1.0-2.7) L 0.3 (1.0-2.7) L Lipase 59 U/L (< 60) Triglycerides Level 45 mg/dL (< 150) Cholesterol Level 73 mg/dL (< 200) LDL Cholesterol 41 mg/dL (60-99) L HDL Cholesterol 23 mg/dL (> 60) Cholesterol/HDL Ratio 3.2 (3.3-4.4) L Height (Feet): 6 Height (Inches): 2.00 Weight (Pounds): 176 Medications Current Medications Medications (Trade) Dose Ordered Sig/[place] Route PRN Reason Start Time Stop Time Status Last Admin Dose Admin Acetaminophen (Tylenol) 650 mg Q4H PRN ORAL Mild Pain/Temp > 100.5 01/26/17 21:30 02/25/17 21:29 Acetaminophen (Tylenol) 650 mg Q4H PRN ORAL fever 01/26/17 22:15 02/25/17 22:14 Al Hydroxide/Mg Hydroxide (Mylanta II) 30 ml Q6H PRN ORAL dyspepsia 01/26/17 22:15 02/25/17 22:14 Amlodipine Besylate (Norvasc) 10 mg DAILY ORAL 01/27/17 09:00 02/26/17 08:59 Benazepril HCl (Lotensin) 40 mg DAILY ORAL 01/27/17 09:00 02/26/17 08:59 Dextrose (Dextrose 50%) STAT PRN IV Hypoglycemia 01/26/17 22:15 02/25/17 22:14 Dextrose (Dextrose 50%) STAT PRN IV Hypoglycemia 01/26/17 22:15 02/25/17 22:14 Divalproex Sodium (Depakote ER) 500 mg TID ORAL 01/27/17 09:00 02/26/17 08:59 Heparin Sodium (Porcine) (Heparin 5000 units/ml) 5,000 units EVERY 12 HOURS SUBQ 01/27/17 09:00 02/26/17 08:59 Insulin Aspart (NovoLOG) BEFORE MEALS AND HS SUBQ 01/27/17 06:30 02/26/17 06:29 Levothyroxine Sodium (Synthroid) 25 mcg DAILY@0630 ORAL 01/27/17 06:30 02/26/17 06:29 01/27/17 05:33 Lorazepam (Ativan 2mg/ml 1ml) 0.5 mg Q4H PRN IV For Anxiety 01/26/17 22:15 02/02/17 22:14 Morphine Sulfate (Morphine Sulfate) 1 mg EVERY 4 HOURS PRN IVP For Pain 01/26/17 22:15 02/02/17 22:14 Ondansetron HCl (Zofran) 4 mg Q6H PRN IVP Nausea & Vomiting 01/26/17 22:15 02/25/17 22:14 Polyethylene Glycol (Miralax) 17 gm HSPRN PRN ORAL Constipation 01/26/17 22:15 02/25/17 22:14 Quetiapine Fumarate (SEROquel) 25 mg THREE TIMES A DAY ORAL 01/27/17 09:00 02/26/17 08:59 Trazodone HCl (Desyrel) 75 mg BEDTIME ORAL 01/27/17 21:00 02/26/17 20:59 Zolpidem Tartrate (Ambien) 5 mg HSPRN PRN ORAL Insomnia 01/26/17 22:15 02/25/17 22:14 Assessment/Plan Assessment/Plan ASSESSMENT microcytic anemia hematuria mild hyperkalemia CKD hx of CVA HTN hypothryodism schizophrenia PLAN OF CARE renal US nephrology eval Kayexalate monitor renal parameters, lytes avoid nephrotoxic anemia workup stool OB. CEA BS management with SS of insulin check HgA1c BP management with CCB and optimize as needed lipid panel hold ASA, Heparin Venous Duplex BLE, if negative apply SCD continue levothyroxine, check TSH resume psych meds psych eval to optimize psychotropic medication regimen case discussed and evaluated by supervising physician Dimitris ([facility])Sandi NP Jan 27, 2017 07:55
[2017-01-27 08:36] VITALS: BP 131/77
[2017-01-27] MEDS: Heparin 5000 units/ml inj SUBQ SCH ×2 (09:00→21:00)
[2017-01-27] MEDS: Depakote ER 500mg tab ORAL SCH ×3 (09:01→17:21)
[2017-01-27 10:51] LABS: CALCIUM 9.8 mg/dL (8.6-10.2); CREATININE 3.1 mg/dL (0.7-1.2); POTASSIUM 5.3 mEQ/L (3.4-4.9)
[2017-01-27] MEDS ORDERED: Sodium Polystyrene Sulfonate 15gm Powder ORAL ONE (11:30)
[2017-01-27 12:00] VITALS: BP 120/76
[2017-01-27 16:00] VITALS: BP 121/73
[2017-01-27 20:11] VITALS: BP 120/55
[2017-01-27] MEDS: Vitamin A&D Oint 2oz Tube TOPIC SCH (20:55)
[2017-01-27] MEDS ORDERED: TraZODone 50mg tab ORAL SCH (21:00)
[2017-01-28 00:39] VITALS: BP 109/59
[2017-01-28 04:00] VITALS: BP 106/76
[2017-01-28] MEDS: Levothyroxine 25mcg tab ORAL SCH (05:53)
[2017-01-28] MEDS: NovoLOG Insulin Flexpen SUBQ SCH ×4 (06:30→21:04)
[2017-01-28 08:14] VITALS: BP 103/65
[2017-01-28 08:21] LABS: HEMOGLOBIN A1C 6.1 % (< 6.0)
[2017-01-28 08:43] LABS: THYROID STIMULATING HORMONE 35.76 uIU/mL (0.300-4.500)
--- NOTE | 2017-01-28 08:45 | Diagnostic Imaging Report ---
Indication: Acute renal failure pain Technique: Renal ultrasound Findings: Kidneys: Right kidney is echogenic. It measures 13.1 cm. There is mild to moderate right hydronephrosis. Debris also appears to be present within the collecting system. There is a least one echogenic focus with shadowing within the right kidney. Left kidney is also echogenic. It measures approximately 12 cm. There is no left hydronephrosis. IVC: The visualized portion of the inferior vena cava appears normal. Bladder: Collapsed but grossly normal. Impression: Echogenic kidneys consistent with intrinsic renal disease. Moderate right hydronephrosis with debris in the collecting system. The possibility of pyonephrosis cannot be excluded. Probable nonobstructive right renal calculus.
[2017-01-28] MEDS: Heparin 5000 units/ml inj SUBQ SCH ×2 (09:00→21:05)
[2017-01-28] MEDS: Depakote ER 500mg tab ORAL SCH (09:46)
[2017-01-28] MEDS: Vitamin A&D Oint 2oz Tube TOPIC SCH ×2 (09:48→21:03)
--- NOTE | 2017-01-28 10:46 | Consultation ---
Consult Note Consult Note asked to eval for renal failure Patient 56-year-old male sent in from nursing facility after abnormal laboratory testing. Patient noted have anemia on laboratory testing. The patient had prior history of type 2 diabetes and schizophrenia. The patient also had history of chronic kidney disease. History is markedly limited by patient's poor historian Allergies: PENICILLINS (Verified Allergy, Unknown, 12/12/16) SHELLFISH DERIVED (Unverified Allergy, Unknown, 01/26/17) Hx Cardiac Problems: Yes Hx Hypertension: Yes Hx Diabetes: Yes Hx Gastrointestinal Problems: No - ckd, anemia History Of Psychiatric Problem: Yes - bipolar Hx Neurological Problems: Yes - hyperthyroid Hx Cerebrovascular Accident: Yes - hemiplegia Hx Dementia: Yes Assessment/Plan CKD likely diabetic, 3+ proteinuria Sever Anemia Schizophrenia HTN HypoThyroidism Hematuria Plan: Urine studies Keep BP and BS in check adjust bp meds- Anemia avalos Kidney ERIKA 2 D echo EPO and Iron CELESTE MCCALL Jan 28, 2017 10:46
[2017-01-28] MEDS ORDERED: Tamsulosin 0.4mg cap ORAL SCH (11:00)
[2017-01-28 11:08] VITALS: BP 115/77
[2017-01-28] MEDS ORDERED: LORazepam Inj 2mg/ml 1ml IV PRN (11:15)
[2017-01-28] MEDS ORDERED: Morphine Sulfate 2mg/ml Inj IVP PRN (11:30)
[2017-01-28] MEDS ORDERED: Iron Sucrose 200 MG in NS 110 ML IVPB ONE ×4 (12:00)
[2017-01-28] MEDS ORDERED: Depakote ER 500mg tab ORAL SCH (13:00)
--- NOTE | 2017-01-28 15:09 | Pulmonology Progress Note ---
Assessment/Plan Assessment/Plan ASSESSMENT microcytic iron deficiency anemia of chronic renal disease hematuria mild hyperkalemia CKD DM hx of CVA HTN hypothyroidism with elevated TSH schizophrenia PLAN OF CARE MS floor renal US with echogenic kidneys consistent with intrinsic renal disease. Moderate right hydronephrosis nephrology eval appreciated monitor renal parameters, lytes avoid nephrotoxic urine studies anemia workup with low iron as well as evidence of anemia of chronic disease start EPO Venofer x 1 get stool OB CEA - WNL GI eval BS management with SS of insulin [id number] BP management with CCB and optimize as needed lipid panel WNL hold ASA, Heparin Venous Duplex BLE, if negative apply SCD TSH elevated, dose of levothyroxine increased psych eval to optimize psychotropic medication regimen case discussed and evaluated by supervising physician Subjective Allergies: Coded Allergies: PENICILLINS (Verified Allergy, Unknown, 12/12/16) SHELLFISH DERIVED (Unverified Allergy, Unknown, 01/26/17) Subjective denies chest pain, SOB uncooperative with exam, asking to leave him alone Objective Last 24 Hour Vital Signs Date Time Temp Pulse Resp B/P Pulse Ox O2 Delivery O2 Flow Rate FiO2 01/28/17 11:08 97.0 91 18 115/77 92 Room Air 01/28/17 08:14 97.0 87 18 103/65 93 Room Air 01/28/17 08:00 94 01/28/17 04:00 97.0 91 20 106/76 95 Room Air 01/28/17 04:00 89 01/28/17 00:39 97.0 98 20 109/59 99 01/28/17 00:00 93 01/27/17 20:11 97.0 100 20 120/55 94 Room Air 01/27/17 20:00 98 01/27/17 16:00 95.9 96 21 121/73 91 Room Air 01/27/17 15:45 94 Intake and Output 01/27/17 01/28/17 19:00 07:00 Intake Total 720 ml Balance 720 ml Intake Oral 720 ml # Voids 3 3 # Bowel Movements 2 1 Objective General Appearance: no apparent distress, alert Lines, tubes and drains: peripheral HEENT: normocephalic, atraumatic, anicteric, mucous membranes moist Neck: supple Respiratory/Chest: lungs clear, no respiratory distress, no accessory muscle use Cardiovascular/Chest: regular rhythm, tachycardia Abdomen: normal bowel sounds, non tender, soft Extremities: non-tender, no calf tenderness, normal capillary refill Neurologic: alert Musculoskeletal: normal muscle bulk Laboratory Tests 01/28/17 06:30: Hemoglobin A1c 6.1H, Iron Level 18L, Total Iron Binding Capacity 141L, Percent Iron Saturation 13L, Unsaturated Iron Binding 123, Ferritin 225, Carcinoembryonic Antigen 2.7, Vitamin B12 Level 532, Folate [Pending], Thyroid Stimulating Hormone (TSH) 35.760H Current Medications Medications (Trade) Dose Ordered Sig/[place] Route PRN Reason Start Time Stop Time Status Last Admin Dose Admin Acetaminophen (Tylenol) 650 mg Q4H PRN ORAL Temp > 100.5 01/28/17 11:15 02/27/17 11:14 Acetaminophen (Tylenol) 650 mg Q4H PRN ORAL Mild Pain (Pain Scale 1-3) 01/28/17 13:30 02/27/17 13:29 Amlodipine Besylate (Norvasc) 2.5 mg DAILY ORAL 01/29/17 09:00 02/28/17 08:59 Clonidine HCl (Catapres) 0.1 mg Q4H PRN ORAL bp over 160 syst 01/28/17 11:30 02/27/17 11:29 Dextrose (Dextrose 50%) STAT PRN IV Hypoglycemia 01/28/17 11:15 02/27/17 11:14 Divalproex Sodium (Depakote ER) 500 mg TID ORAL 01/28/17 13:00 02/27/17 12:59 01/28/17 13:13 Epoetin Ariel (Procrit (for non ESRD use)) 10,000 units MON-WED-SUN SUBQ 01/29/17 21:00 02/28/17 20:59 Heparin Sodium (Porcine) (Heparin 5000 units/ml) 5,000 units EVERY 12 HOURS SUBQ 01/28/17 21:00 02/27/17 20:59 Insulin Aspart (NovoLOG) BEFORE MEALS AND HS SUBQ 01/28/17 11:30 02/27/17 11:29 01/28/17 13:14 Levothyroxine Sodium (Synthroid) 75 mcg DAILY@0630 ORAL 01/29/17 06:30 02/28/17 06:29 Lorazepam (Ativan 2mg/ml 1ml) 0.5 mg Q4H PRN IV For Anxiety 01/28/17 11:15 02/04/17 11:14 Morphine Sulfate (Morphine Sulfate) 1 mg Q4H PRN IVP Pain 4-10 01/28/17 11:30 02/04/17 11:29 Ondansetron HCl (Zofran) 4 mg Q6H PRN IVP Nausea & Vomiting 01/28/17 11:30 02/27/17 11:29 Pantoprazole (Protonix) 40 mg EVERY 12 HOURS ORAL 01/28/17 21:00 02/27/17 20:59 Polyethylene Glycol (Miralax) 17 gm HSPRN PRN ORAL Constipation 01/28/17 20:00 02/27/17 19:59 Quetiapine Fumarate (SEROquel) 25 mg THREE TIMES A DAY ORAL 01/28/17 13:00 02/27/17 12:59 01/28/17 13:17 Tamsulosin HCl (Flomax) 0.4 mg BID ORAL 01/28/17 18:00 02/27/17 17:59 Trazodone HCl (Desyrel) 75 mg BEDTIME ORAL 01/28/17 21:00 02/27/17 20:59 Vitamin A/Vitamin D (A & D Oint) 1 applic EVERY 12 HOURS TOPIC 01/28/17 21:00 02/27/17 20:59 Zolpidem Tartrate (Ambien) 5 mg HSPRN PRN ORAL Insomnia 01/28/17 20:00 02/27/17 19:59 [facility]avares NP Jan 28, 2017 15:09
--- NOTE | 2017-01-28 16:21 | Cardiology Report ---
APPROVED REPORT EKG Measurement Heart [id number] Sinus tachycardia Rightward axis Cannot rule out Anterior infarct, age undetermined Abnormal ECG
[2017-01-28 16:25] VITALS: BP 113/59
[2017-01-28] MEDS: Tamsulosin 0.4mg cap ORAL SCH (17:27)
[2017-01-28] MEDS ORDERED: Miralax 17gm pkt ORAL PRN (20:00)
[2017-01-28] MEDS ORDERED: Zolpidem 5mg tab ORAL PRN (20:00)
[2017-01-28] MEDS ORDERED: TraZODone 50mg tab ORAL SCH (21:00)
[2017-01-28 22:33] VITALS: BP 126/74
[2017-01-29] VITALS (7 sets, daily range): BP systolic 117–129; BP diastolic 63–77
--- NOTE | 2017-01-29 | Consultation ---
DATE OF CONSULTATION: HISTORY OF PRESENT ILLNESS: The patient is a 56-year-old male who has a history of schizoaffective disorder. The patient was admitted from the nursing facility for medical stabilization. He has had abnormal lab tests. During the evaluation, the patient was found weak. He was arousable, however, was uncooperative with the examination. He just did not want uncooperative. The patient is disorganized and is delusional, presents with depressed mood, worthlessness, hopelessness and decreased energy. PAST PSYCHIATRIC HISTORY: Diagnosed with schizophrenia versus schizoaffective disorder. PAST MEDICAL HISTORY: Significant for respiratory failure, leukocytosis, pneumonia, anemia, hyperkalemia, diabetes, hypertension, hypothyroidism and CKD. MEDICATIONS: The patient is on multiple psychotropic medications including trazodone, Seroquel, Depakote and lorazepam. ALLERGIES: Penicillin, shellfish and dried products. SUBSTANCE ABUSE HISTORY: No known history of illicit drug use or alcohol. MENTAL STATUS EXAMINATION: The patient is alert and oriented times self, place and situation he is in. Mood is irritable. Affect is constricted, congruent with mood. Thought process is concrete to tangential. Thought content, there is no suicidal or homicidal ideation. ASSESSMENT: AXIS I Schizophrenia versus schizoaffective disorder, bipolar type. AXIS II Deferred. AXIS III As above. AXIS IV Moderate. AXIS V . The patient is a poor historian due to his psychotic symptoms most likely. PLAN: 1. The patient will be continued on Depakote. It will be changed to 1500 mg p.o. at bedtime. 2. We will discontinue trazodone. 3. We will discontinue Seroquel. 4. Started on risperidone 2 mg p.o. at bedtime. Dale Galicia M.D. DR: MADDY JOB#: [id number] CC:
[2017-01-29] MEDS: NovoLOG Insulin Flexpen SUBQ SCH ×4 (05:59→20:44)
[2017-01-29 07:09] LABS: MEAN CORPUSCULAR HEMOGLOBIN 23.8 PG (27.0-31.0); MEAN CORPUSCULAR HGB CONC 29.5 G/DL (32.0-36.0); MEAN CORPUSCULAR VOLUME 81 FL (80-99); MEAN PLATELET VOLUME 3.9 FL (6.5-10.1); PLATELET COUNT 240 K/UL (150-450); RED CELL DISTRIBUTION WIDTH 21.7 % (11.6-14.8); WHITE BLOOD COUNT 5.4 K/UL (4.8-10.8)
[2017-01-29 07:20] LABS: ALANINE AMINOTRANSFERASE 6 U/L (3-41); ALBUMIN/GLOBULIN RATIO 0.2 (1.0-2.7); ASPARTATE AMINO TRANSFERASE 9 U/L (5-40); CALCIUM 9.7 mg/dL (8.6-10.2); CARBON DIOXIDE 20 mEQ/L (20-30); CREATININE 3.4 mg/dL (0.7-1.2); GLOMERULAR FILTRATION RATE 18.9 mL/min (>60); HEMOLYSIS 0; MAGNESIUM 1.8 mg/dL (1.7-2.5)
[2017-01-29] MEDS: Tamsulosin 0.4mg cap ORAL SCH ×2 (09:03→17:44)
[2017-01-29] MEDS: Heparin 5000 units/ml inj SUBQ SCH ×2 (09:04→20:37)
[2017-01-29] MEDS: Vitamin A&D Oint 2oz Tube TOPIC SCH ×2 (09:06→20:38)
[2017-01-29 09:11] LABS: ANION GAP 18 (5-15); CHLORIDE 99 mEQ/L (98-107); POTASSIUM 4.4 mEQ/L (3.4-4.9); SODIUM 137 mEQ/L (135-145)
[2017-01-29 09:20] LABS: ANISOCYTOSIS 2+; BAND NEUTROPHILS % (MANUAL) 0 % (0-8); BASOPHILS % (MANUAL) 0 % (0-2); EOSINOPHILS % (MANUAL) 0 % (0-3); HYPOCHROMASIA 1+; LYMPHOCYTES % (MANUAL) 13 % (20-45); NEUTROPHILS % (MANUAL) 80 % (45-75); PLATELET ESTIMATE ADEQUATE; PLATELET MORPHOLOGY NORMAL; TOTAL CELLS COUNTED 100
[2017-01-29 09:21] LABS: MICROCYTES 1+
[2017-01-29 10:06] LABS: URIC ACID 10.1 mg/dL (3.0-7.5)
--- NOTE | 2017-01-29 10:45 | General Progress Note ---
Assessment/Plan Status: unchanged, deteriorating - serum Cr Assessment/Plan status: CKD likely diabetic, 3+ proteinuria Sever Anemia Schizophrenia HTN HypoThyroidism Hematuria Plan: Urine studies Keep BP and BS in check adjust bp meds- Anemia avalos 2 D echo 65% EjFx EPO and Iron IV Iron one liter IV renal diet Kidney ERIKA Impression: Echogenic kidneys consistent with intrinsic renal disease. Moderate right hydronephrosis with debris in the collecting system. Probable nonobstructive right renal calculus. Subjective ROS Limited/Unobtainable: No Constitutional: Reports: malaise Allergies: Coded Allergies: PENICILLINS (Verified Allergy, Unknown, 12/12/16) SHELLFISH DERIVED (Unverified Allergy, Unknown, 01/26/17) Objective Last 24 Hour Vital Signs Date Time Temp Pulse Resp B/P Pulse Ox O2 Delivery O2 Flow Rate FiO2 01/29/17 09:03 105 121/74 01/29/17 08:58 96.9 105 20 121/74 95 Room Air 01/29/17 04:30 92 Nasal Cannula 2.0 01/29/17 04:00 97.0 100 20 117/71 90 Nasal Cannula 2.0 01/29/17 00:00 97.2 98 20 129/76 94 Nasal Cannula 2.0 01/28/17 22:33 96.6 100 20 126/74 93 Nasal Cannula 2.0 01/28/17 21:44 96.8 01/28/17 16:25 96.8 93 22 113/59 91 Room Air 01/28/17 11:08 97.0 91 18 115/77 92 Room Air Intake and Output 01/28/17 01/29/17 19:00 07:00 Intake Total 360 ml Output Total 700 ml Balance 360 ml -700 ml Intake Oral 120 ml IV Total 240 ml Output Urine Total 700 ml # Voids 3 # Bowel Movements 2 1 Laboratory Tests 01/28/17 20:11: Stool Occult Blood Negative 01/28/17 23:45: Urine Random Sodium 64 01/29/17 05:40: White Blood Count 5.4, Red Blood Count 3.10L, Hemoglobin 7.4L, Hematocrit 25.0L , Mean Corpuscular Volume 81, Mean Corpuscular Hemoglobin 23.8L, Mean Corpuscular Hemoglobin Concent 29.5L, Red Cell Distribution Width 21.7H, Platelet Count 240, Mean Platelet Volume 3.9L, Neutrophils (%) (Auto) , Lymphocytes (%) (Auto) , Monocytes (%) (Auto) , Eosinophils (%) (Auto) , Basophils (%) (Auto) , Differential Total Cells Counted 100, Neutrophils % ( Manual) 80H, Lymphocytes % (Manual) 13L, Monocytes % (Manual) 7, Eosinophils % ( Manual) 0, Basophils % (Manual) 0, Band Neutrophils 0, Platelet Estimate Adequate, Platelet Morphology Normal, Hypochromasia 1+, Anisocytosis 2+, Microcytosis 1+, Sodium Level 137, Potassium Level 4.4, Chloride Level 99, Carbon Dioxide Level 20, Anion Gap 18H, Blood Urea Nitrogen 78H, Creatinine 3.4H , Estimat Glomerular Filtration Rate 18.9, Glucose Level 91, Hemoglobin A1c 6.0 , Uric Acid 10.1H, Calcium Level 9.7, Phosphorus Level 6.0H, Magnesium Level 1.8 , Total Bilirubin 0.3, Gamma Glutamyl Transpeptidase 138H, Aspartate Amino Transf (AST/SGOT) 9, Alanine Aminotransferase (ALT/SGPT) 6, Alkaline Phosphatase 164H, Total Creatine Kinase 19L, C-Reactive Protein, Quantitative 21.0H, Pro-B-Type Natriuretic Peptide 55969O, Total Protein 9.0H, Albumin 2.0L, Globulin 7.0, Albumin/Globulin Ratio 0.2L 01/29/17 06:32: Urine Eosinophils [Pending] Height (Feet): 6 Height (Inches): 2.00 Weight (Pounds): 176 General Appearance: no apparent distress, lethargic Cardiovascular: tachycardia Respiratory/Chest: decreased breath sounds Abdomen: soft Genitourinary/Rectal: other - condom cath Objective other PE no change CELESTE MCCALL Jan 29, 2017 10:45
[2017-01-29] MEDS ORDERED: D5NS 1,000 ML IV ONE (11:30)
--- NOTE | 2017-01-29 12:13 | GI Initial Consult Note ---
History of Present Illness General Date patient seen: Jan 29, 2017 Time patient seen: 11:00 Reason for Hospitalization: Abnormal Labs Referring physician: BRAXTON SUAREZ Reason for Consultation: ANEMIA Present Illness HPI Patient 56-year-old male sent in from nursing facility after abnormal laboratory testing. Patient noted have anemia on laboratory testing. The patient had prior history of type 2 diabetes and schizophrenia. The patient also had history of chronic kidney disease. History is markedly limited by patient's poor historian. GI Consult. HPI as noted above. GI consulted for anemia. Patient admitted here at [facility] November 2015 for severe anemia, low Hgb. During that time, the patient was scheduled for EGD/Colonoscopy but was deferred due to the patients respiratory status. The patient was stabilized and discharged. The patient presents today with anemia with low Hgb, iron deficiency and elevated alkaline phosphatase. Unknown history of any endoscopic procedures. Home Meds Reported Medications Mag Hydrox/Al Hydrox/Simeth (ALUM-MAG HYDROXIDE-SIMETH LIQ) 360 Ml Oral.susp, 30 ML PO EVERY 6 HOURS Y for STOMACH UPSET, ML 01/26/17 Pantoprazole* (PROTONIX*) 40 Mg Tablet.dr, 40 MG ORAL DAILY, TAB 01/26/17 Acetaminophen* (ACETAMINOPHEN 325MG TABLET*) 325 Mg Tablet, 650 MG ORAL Q4H Y for Fever/Headache/Mild Pain MDD 3 GM, TAB 01/26/17 Zolpidem Tartrate* (ZOLPIDEM TARTRATE*) 5 Mg Tablet, 5 MG ORAL BEDTIME Y for Insomnia, TAB 0 Refills 01/26/17 Ipratropium/Albuterol Sulfate (DuoNeb 0.5-3(2.5)mg/3ml) 3 Ml Ampul.neb, 3 ML HHN , EA 01/26/17 Trazodone* (TRAZODONE*) 150 Mg Tablet, 75 MG ORAL BEDTIME, TAB 01/26/17 Levothyroxine Sodium* (SYNTHROID*) 25 Mcg Tablet, 25 MCG ORAL DAILY, TAB Take in the morning on an empty stomach, at least 30 minutes before food. 01/26/17 Quetiapine Fumarate* (SEROQUEL*) 25 Mg Tablet, 25 MG ORAL THREE TIMES A DAY, TAB 01/26/17 Ondansetron* (ZOFRAN*) 4 Mg Tablet, 4 MG ORAL Q6H Y for Nausea & Vomiting, TAB 12/08/16 Simvastatin (ZOCOR) 20 Mg Tablet, 20 MG ORAL BEDTIME, TAB 12/08/16 Sennosides (SENNA) 8.6 Mg Tablet, 2 TAB PO BEDTIME, TAB 12/08/16 Amlodipine Besylate (Norvasc) 10 Mg Tablet, 10 MG ORAL DAILY, TAB 12/08/16 Magnesium Hydroxide* (MILK OF MAGNESIA*) 400 Mg/5 Ml Oral.susp, 30 ML ORAL DAILY Y for Constipation, ML 12/08/16 Glipizide* (GLUCOTROL*) 5 Mg Tablet, 5 MG ORAL ACBREAKFAST, #10 TAB 0 Refills 12/08/16 Na Phos,M-B/Na Phos,Di-Ba* (FLEET ENEMA*) 133 Ml Enema, 133 ML RECTAL DAILY, ML 0 Refills 12/08/16 Bisacodyl (DULCOLAX) 10 Mg Supp.rect, 10 MG RC NEEDED Y for Constipation, SUPP 12/08/16 Divalproex Sodium* (DEPAKOTE ER*) 500 Mg Tab.er.24h, 500 MG ORAL TID, TAB 12/08/16 Docusate Sodium* (COLACE*) 100 Mg Capsule, 100 MG ORAL DAILY, CAP 12/08/16 Benazepril Hcl* (BENAZEPRIL HCL*) 40 Mg Tablet, 40 MG ORAL DAILY, TAB 12/08/16 Discontinued Reported Medications Acetaminophen With Codeine (T#3) (TYLENOL WITH CODEINE #3 TABLET) Y Tab, 1 TAB ORAL Q6HR Y for For Pain, TAB 12/08/16 Ascorbic Acid* (VITAMIN C*) 500 Mg Tablet, 500 MG ORAL DAILY, #30 TAB 0 Refills 12/08/16 Temazepam* (RESTORIL*) 15 Mg Capsule, 15 MG ORAL BEDTIME Y for Insomnia, CAP 12/08/16 Multivitamins* (MULTIVITAMINS*) 1 Each Tablet, 1 TAB ORAL DAILY, TAB 0 Refills 12/08/16 Ferrous Sulfate* (FERROUS SULFATE*) 325 Mg Tablet, 325 MG ORAL DAILY, #30 TAB 0 Refills 12/08/16 Aspirin* (ASPIRIN*) 81 Mg Tab.chew, 81 MG ORAL DAILY, TAB 12/08/16 Discontinued Scripts Metronidazole* (FLAGYL*) 500 Mg Tablet, 500 MG ORAL EVERY 8 HOURS for 4 Days, TAB Prov:BRAXTON SUAREZ 12/15/16 Aztreonam (AZTREONAM) 1 Gm Vial, 1 GM IJ EVERY 8 HOURS for 4 Days, VIAL Prov:BRAXTON SUAREZ 12/15/16 Med list reviewed/reconciled: Yes Allergies: Coded Allergies: PENICILLINS (Verified Allergy, Unknown, 12/12/16) SHELLFISH DERIVED (Unverified Allergy, Unknown, 01/26/17) Patient History Limited by: medical condition History Provided By: Medical Record PMH Narrative Hx Cardiac Problems: Yes Hx Hypertension: Yes Hx Pacemaker: No Hx Diabetes: Yes Hx Cancer: No Hx Gastrointestinal Problems: No - ckd, anemia History Of Psychiatric Problem: Yes - bipolar Hx Neurological Problems: Yes - hyperthyroid Hx Cerebrovascular Accident: Yes - hemiplegia Hx Dementia: Yes Hx Seizures: No Review of Systems All Other Systems: limited Physical Exam Vital Signs Date Time Temp Pulse Resp B/P Pulse Ox O2 Delivery O2 Flow Rate FiO2 01/26/17 16:59 97.9 78 16 160/80 98 Room Air 01/26/17 20:50 2.0 Sp02 EP Interpretation: reviewed Labs Laboratory Tests Test 01/28/17 20:11 01/28/17 23:45 01/29/17 05:40 01/29/17 06:32 Stool Occult Blood Negative (NEGATIVE) Urine Random Sodium 64 mmol/L White Blood Count 5.4 K/UL (4.8-10.8) Red Blood Count 3.10 M/UL (4.70-6.10) L Hemoglobin 7.4 G/DL (14.2-18.0) L Hematocrit 25.0 % (42.0-52.0) L Mean Corpuscular Volume 81 FL (80-99) Mean Corpuscular Hemoglobin 23.8 PG (27.0-31.0) L Mean Corpuscular Hemoglobin Concent 29.5 G/DL (32.0-36.0) L Red Cell Distribution Width 21.7 % (11.6-14.8) H Platelet Count 240 K/UL (150-450) Mean Platelet Volume 3.9 FL (6.5-10.1) L Neutrophils (%) (Auto) % (45.0-75.0) Lymphocytes (%) (Auto) % (20.0-45.0) Monocytes (%) (Auto) % (1.0-10.0) Eosinophils (%) (Auto) % (0.0-3.0) Basophils (%) (Auto) % (0.0-2.0) Differential Total Cells Counted 100 Neutrophils % (Manual) 80 % (45-75) H Lymphocytes % (Manual) 13 % (20-45) L Monocytes % (Manual) 7 % (1-10) Eosinophils % (Manual) 0 % (0-3) Basophils % (Manual) 0 % (0-2) Band Neutrophils 0 % (0-8) Platelet Estimate Adequate Platelet Morphology Normal Hypochromasia 1+ Anisocytosis 2+ Microcytosis 1+ Sodium Level 137 mEQ/L (135-145) Potassium Level 4.4 mEQ/L (3.4-4.9) Chloride Level 99 mEQ/L (98-107) Carbon Dioxide Level 20 mEQ/L (20-30) Anion Gap 18 (5-15) H Blood Urea Nitrogen 78 mg/dL (7-23) H Creatinine 3.4 mg/dL (0.7-1.2) H Estimat Glomerular Filtration Rate 18.9 mL/min (>60) Glucose Level 91 mg/dL (74-106) Hemoglobin A1c 6.0 % (< 6.0) Uric Acid 10.1 mg/dL (3.0-7.5) H Calcium Level 9.7 mg/dL (8.6-10.2) Phosphorus Level 6.0 mg/dL (2.5-4.8) H Magnesium Level 1.8 mg/dL (1.7-2.5) Total Bilirubin 0.3 mg/dL (0.0-1.2) Gamma Glutamyl Transpeptidase 138 U/L (8-61) H Aspartate Amino Transf (AST/SGOT) 9 U/L (5-40) Alanine Aminotransferase (ALT/SGPT) 6 U/L (3-41) Alkaline Phosphatase 164 U/L (40-129) H Total Creatine Kinase 19 U/L (38-174) L C-Reactive Protein, Quantitative 21.0 mg/dL (< 0.5) H Pro-B-Type Natriuretic Peptide 38203 pg/mL (0-125) H Total Protein 9.0 g/dL (6.6-8.7) H Albumin 2.0 g/dL (3.5-5.2) L Globulin 7.0 g/dL Albumin/Globulin Ratio 0.2 (1.0-2.7) L Urine Eosinophils None seen General Appearance: well appearing, no apparent distress, alert, thin Head: normocephalic EENT: PERRL/EOMI, normal ENT inspection Neck: supple Respiratory: normal breath sounds, no respiratory distress Cardiovascular: normal rate Gastrointestinal: normal inspection, non tender, soft Rectal: deferred Musculoskeletal: back normal Neurologic: alert Psychiatric: normal inspection Skin: pallor Lymphatic: normal inspection, no adenopathy Current Medications Current Medications Medications (Trade) Dose Ordered Sig/K[place] Route PRN Reason Start Time Stop Time Status Last Admin Dose Admin Acetaminophen (Tylenol) 650 mg Q4H PRN ORAL Temp > 100.5 01/28/17 11:15 02/27/17 11:14 Acetaminophen (Tylenol) 650 mg Q4H PRN ORAL Mild Pain (Pain Scale 1-3) 01/28/17 13:30 02/27/17 13:29 Amlodipine Besylate (Norvasc) 2.5 mg DAILY ORAL 01/29/17 09:00 02/28/17 08:59 01/29/17 09:03 Bisacodyl (Dulcolax) 10 mg ONCE ONCE ORAL 01/29/17 16:00 01/29/17 16:01 UNV Clonidine HCl (Catapres) 0.1 mg Q4H PRN ORAL bp over 160 syst 01/28/17 11:30 02/27/17 11:29 Dextrose (Dextrose 50%) STAT PRN IV Hypoglycemia 01/28/17 11:15 02/27/17 11:14 Dextrose/Sodium Chloride (D5ns) 1,000 ml @ 75 mls/hr [id number] ONCE IV 01/29/17 11:30 01/30/17 00:49 Divalproex Sodium (Depakote ER) 1,500 mg BEDTIME ORAL 01/29/17 21:00 02/28/17 20:59 Epoetin Ariel (Procrit (for non ESRD use)) 10,000 units MON-WED-FRI SUBQ 01/29/17 21:00 02/28/17 20:59 Heparin Sodium (Porcine) (Heparin 5000 units/ml) 5,000 units EVERY 12 HOURS SUBQ 01/28/17 21:00 02/27/17 20:59 01/29/17 09:04 Insulin Aspart (NovoLOG) BEFORE MEALS AND HS SUBQ 01/28/17 11:30 02/27/17 11:29 01/28/17 21:04 Iron Sucrose 100 mg/Sodium Chloride 60 ml @ 240 mls/hr BEDTIME IVPB 01/29/17 21:00 02/02/17 21:14 Levothyroxine Sodium (Synthroid) 75 mcg DAILY@0630 ORAL 01/29/17 06:30 02/28/17 06:29 01/29/17 06:49 Lorazepam (Ativan 2mg/ml 1ml) 0.5 mg Q4H PRN IV For Anxiety 01/28/17 11:15 02/04/17 11:14 Magnesium Citrate (Citrate Of Magnesia) 300 ml ONCE ONCE ORAL 01/29/17 16:00 01/29/17 16:01 UNV Morphine Sulfate (Morphine Sulfate) 1 mg Q4H PRN IVP Pain 4-10 01/28/17 11:30 02/04/17 11:29 01/28/17 21:14 Ondansetron HCl (Zofran) 4 mg Q6H PRN IVP Nausea & Vomiting 01/28/17 11:30 02/27/17 11:29 Pantoprazole (Protonix) 40 mg EVERY 12 HOURS ORAL 01/28/17 21:00 02/27/17 20:59 01/29/17 09:02 Polyethylene Glycol (Miralax) 17 gm HSPRN PRN ORAL Constipation 01/28/17 20:00 02/27/17 19:59 Polyethylene Glycol (Miralax) 238 gm ONCE ONCE ORAL 01/29/17 16:00 01/29/17 16:01 UNV Risperidone 2 mg 2 mg BEDTIME ORAL 01/28/17 21:00 02/27/17 20:59 01/28/17 21:03 Sodium Phosphate (Fleet's Sodium Phosl Enema) 133 ml ONCE ONCE RECTAL 01/29/17 23:00 01/29/17 23:01 UNV Tamsulosin HCl (Flomax) 0.4 mg BID ORAL 01/28/17 18:00 02/27/17 17:59 01/29/17 09:03 Vitamin A/Vitamin D (A & D Oint) 1 applic EVERY 12 HOURS TOPIC 01/28/17 21:00 02/27/17 20:59 01/29/17 09:06 Zolpidem Tartrate (Ambien) 5 mg HSPRN PRN ORAL Insomnia 01/28/17 20:00 02/27/17 19:59 GI: Plan Problems: (1) Schizophrenia (2) Hypothyroidism (3) Diabetes (4) Anemia (5) Iron deficiency anemia Plan EGD/Colonoscopy scheduled tomorrow. - CLD, NPO @ MT. - hold all blood thinners tonight. prn transfusions iron deficiency >> venofer ppi fu labs Discussed with Dr. Juares. Thank you for referring this patient, we will follow. Veronica Woods N.P. Jan 29, 2017 12:13
[2017-01-29] MEDS ORDERED: Bisacodyl EC 5mg tab ORAL ONE (16:00)
[2017-01-29] MEDS ORDERED: Magnesium Citrate Liq Btl ORAL ONE (16:00)
[2017-01-29] MEDS ORDERED: Polyethylene Glycol 238gm bottle ORAL ONE (16:00)
--- NOTE | 2017-01-29 20:30 | Progress Note ---
DATE: 01/29/2017 SUBJECTIVE: The patient was found in bed, somewhere uncooperative and not engaged during the evaluation. The patient is irritable and has paucity of thought content. MENTAL STATUS EXAMINATION: The patient is alert and oriented times self and situation. He was uncooperative with the evaluation. Mood is irritable. Affect is constricted with congruent mood thought process. There is a paucity of thought content. Thought content, no suicidal or homicidal ideation. Insight and judgment is impaired. ASSESSMENT: Schizophrenia. PLAN: 1. The patient will be continued on a combination of Depakote, trazodone, and risperidone. 2. We will continue to follow and readjust the medications. Dale Galicia M.D. DR: FREEDOM JOB#: [id number] CC:
[2017-01-29] MEDS: Iron Sucrose 100 MG in NS 55 ML IVPB SCH (20:35)
[2017-01-29] MEDS: Depakote ER 500mg tab ORAL SCH (20:36)
[2017-01-29] MEDS: Epogen (for non ESRD use) SUBQ SCH (20:37)
[2017-01-29] MEDS ORDERED: Epogen (for non ESRD use) SUBQ SCH (21:00)
[2017-01-29] MEDS ORDERED: Fleet's Enema 133ml RECTAL ONE (23:00)
--- NOTE | 2017-01-29 23:29 | Pulmonology Progress Note ---
Assessment/Plan Problems: (1) GI bleeding (2) CKD (chronic kidney disease) (3) Hypothyroidism (4) Diabetes (5) Bipolar disorder (6) History of CVA (cerebrovascular accident) (7) Anemia Assessment/Plan prbc today GI evaluation check electrolytes anemia w/u in process Subjective ROS Limited/Unobtainable: No Interval Events: awake, not cooperative Constitutional: Reports: no symptoms HEENT: Repors: no symptoms Respiratory: Reports: no symptoms Allergies: Coded Allergies: PENICILLINS (Verified Allergy, Unknown, 12/12/16) SHELLFISH DERIVED (Unverified Allergy, Unknown, 01/26/17) Objective Last 24 Hour Vital Signs Date Time Temp Pulse Resp B/P Pulse Ox O2 Delivery O2 Flow Rate FiO2 01/29/17 20:00 97.8 96 18 126/71 91 Room Air 01/29/17 16:28 98.0 97 20 125/69 94 Room Air 01/29/17 12:55 98.0 95 20 124/63 94 Room Air 01/29/17 09:03 105 121/74 01/29/17 08:58 96.9 105 20 121/74 95 Room Air 01/29/17 04:30 92 Nasal Cannula 2.0 01/29/17 04:00 97.0 100 20 117/71 90 Nasal Cannula 2.0 01/29/17 00:00 97.2 98 20 129/76 94 Nasal Cannula 2.0 Intake and Output 01/28/17 01/29/17 19:00 07:00 Intake Total 360 ml Output Total 700 ml Balance 360 ml -700 ml Intake Oral 120 ml IV Total 240 ml Output Urine Total 700 ml # Voids 3 # Bowel Movements 2 1 General Appearance: WD/WN HEENT: normocephalic, atraumatic Respiratory/Chest: chest wall non-tender, lungs clear Cardiovascular: normal peripheral pulses, normal rate Abdomen: normal bowel sounds, soft, non tender Genitourinary: normal external genitalia Extremities: no cyanosis, no clubbing Laboratory Tests 01/28/17 23:45: Urine Random Sodium 64 01/29/17 05:40: White Blood Count 5.4, Red Blood Count 3.10L, Hemoglobin 7.4L, Hematocrit 25.0L , Mean Corpuscular Volume 81, Mean Corpuscular Hemoglobin 23.8L, Mean Corpuscular Hemoglobin Concent 29.5L, Red Cell Distribution Width 21.7H, Platelet Count 240, Mean Platelet Volume 3.9L, Neutrophils (%) (Auto) , Lymphocytes (%) (Auto) , Monocytes (%) (Auto) , Eosinophils (%) (Auto) , Basophils (%) (Auto) , Differential Total Cells Counted 100, Neutrophils % ( Manual) 80H, Lymphocytes % (Manual) 13L, Monocytes % (Manual) 7, Eosinophils % ( Manual) 0, Basophils % (Manual) 0, Band Neutrophils 0, Platelet Estimate Adequate, Platelet Morphology Normal, Hypochromasia 1+, Anisocytosis 2+, Microcytosis 1+, Sodium Level 137, Potassium Level 4.4, Chloride Level 99, Carbon Dioxide Level 20, Anion Gap 18H, Blood Urea Nitrogen 78H, Creatinine 3.4H , Estimat Glomerular Filtration Rate 18.9, Glucose Level 91, Hemoglobin A1c 6.0 , Uric Acid 10.1H, Calcium Level 9.7, Phosphorus Level 6.0H, Magnesium Level 1.8 , Total Bilirubin 0.3, Gamma Glutamyl Transpeptidase 138H, Aspartate Amino Transf (AST/SGOT) 9, Alanine Aminotransferase (ALT/SGPT) 6, Alkaline Phosphatase 164H, Total Creatine Kinase 19L, C-Reactive Protein, Quantitative 21.0H, Pro-B-Type Natriuretic Peptide [id number], Total Protein 9.0H, Albumin 2.0L, Globulin 7.0, Albumin/Globulin Ratio 0.2L 01/29/17 06:32: Urine Eosinophils None seen Current Medications Medications (Trade) Dose Ordered Sig/[place] Route PRN Reason Start Time Stop Time Status Last Admin Dose Admin Acetaminophen (Tylenol) 650 mg Q4H PRN ORAL Temp > 100.5 01/28/17 11:15 02/27/17 11:14 Acetaminophen (Tylenol) 650 mg Q4H PRN ORAL Mild Pain (Pain Scale 1-3) 01/28/17 13:30 02/27/17 13:29 Amlodipine Besylate (Norvasc) 2.5 mg DAILY ORAL 01/29/17 09:00 02/28/17 08:59 01/29/17 09:03 Clonidine HCl (Catapres) 0.1 mg Q4H PRN ORAL bp over 160 syst 01/28/17 11:30 02/27/17 11:29 Dextrose (Dextrose 50%) STAT PRN IV Hypoglycemia 01/28/17 11:15 02/27/17 11:14 Dextrose/Sodium Chloride (D5ns) 1,000 ml @ 75 mls/hr [id number] ONCE IV 01/29/17 11:30 01/30/17 00:49 01/29/17 12:29 Divalproex Sodium (Depakote ER) 1,500 mg BEDTIME ORAL 01/29/17 21:00 02/28/17 20:59 01/29/17 20:36 Epoetin Ariel (Procrit (for non ESRD use)) 10,000 units SUN-SUN-SUN SUBQ 01/29/17 21:00 02/28/17 20:59 01/29/17 20:37 Heparin Sodium (Porcine) (Heparin 5000 units/ml) 5,000 units EVERY 12 HOURS SUBQ 01/28/17 21:00 02/27/17 20:59 01/29/17 09:04 Insulin Aspart (NovoLOG) BEFORE MEALS AND HS SUBQ 01/28/17 11:30 02/27/17 11:29 01/29/17 20:44 Iron Sucrose 100 mg/Sodium Chloride 60 ml @ 240 mls/hr BEDTIME IVPB 01/29/17 21:00 02/02/17 21:14 01/29/17 20:35 Levothyroxine Sodium (Synthroid) 75 mcg DAILY@0630 ORAL 01/29/17 06:30 02/28/17 06:29 01/29/17 06:49 Lorazepam (Ativan 2mg/ml 1ml) 0.5 mg Q4H PRN IV For Anxiety 01/28/17 11:15 02/04/17 11:14 Morphine Sulfate (Morphine Sulfate) 1 mg Q4H PRN IVP Pain 4-10 01/28/17 11:30 02/04/17 11:29 01/28/17 21:14 Ondansetron HCl (Zofran) 4 mg Q6H PRN IVP Nausea & Vomiting 01/28/17 11:30 02/27/17 11:29 Pantoprazole (Protonix) 40 mg EVERY 12 HOURS ORAL 01/28/17 21:00 02/27/17 20:59 01/29/17 20:36 Polyethylene Glycol (Miralax) 17 gm HSPRN PRN ORAL Constipation 01/28/17 20:00 02/27/17 19:59 Risperidone 2 mg 2 mg BEDTIME ORAL 01/28/17 21:00 02/27/17 20:59 01/29/17 20:36 Tamsulosin HCl (Flomax) 0.4 mg BID ORAL 01/28/17 18:00 02/27/17 17:59 01/29/17 17:44 Vitamin A/Vitamin D (A & D Oint) 1 applic EVERY 12 HOURS TOPIC 01/28/17 21:00 02/27/17 20:59 01/29/17 20:38 Zolpidem Tartrate (Ambien) 5 mg HSPRN PRN ORAL Insomnia 01/28/17 20:00 02/27/17 19:59 BRAXTON SUAREZ Jan 29, 2017 23:29
[2017-01-30] VITALS (9 sets, daily range): BP systolic 103–128; BP diastolic 56–82
[2017-01-30] MEDS: NovoLOG Insulin Flexpen SUBQ SCH ×4 (05:55→20:32)
[2017-01-30 06:58] LABS: MEAN CORPUSCULAR HEMOGLOBIN 23.5 PG (27.0-31.0); MEAN CORPUSCULAR HGB CONC 29.4 G/DL (32.0-36.0); MEAN CORPUSCULAR VOLUME 80 FL (80-99); MEAN PLATELET VOLUME 4.3 FL (6.5-10.1); PLATELET COUNT 260 K/UL (150-450); RED BLOOD COUNT 3.27 M/UL (4.70-6.10); RED CELL DISTRIBUTION WIDTH 21.4 % (11.6-14.8); WHITE BLOOD COUNT 6.1 K/UL (4.8-10.8)
[2017-01-30 07:06] LABS: INR 1.1 (0.9-1.1); PROTHROMBIN TIME 11.5 SEC (9.30-11.50)
[2017-01-30 07:22] LABS: CALCIUM 9.5 mg/dL (8.6-10.2); CREATININE 3.5 mg/dL (0.7-1.2); GLOMERULAR FILTRATION RATE 18.3 mL/min (>60); POTASSIUM 4.9 mEQ/L (3.4-4.9)
[2017-01-30 08:20] LABS: ANISOCYTOSIS 3+; BAND NEUTROPHILS % (MANUAL) 0 % (0-8); BASOPHILS % (MANUAL) 0 % (0-2); EOSINOPHILS % (MANUAL) 3 % (0-3); HYPOCHROMASIA 3+; LYMPHOCYTES % (MANUAL) 11 % (20-45); NEUTROPHILS % (MANUAL) 75 % (45-75); PLATELET ESTIMATE ADEQUATE; PLATELET MORPHOLOGY NORMAL; TOTAL CELLS COUNTED 100
[2017-01-30] MEDS: Tamsulosin 0.4mg cap ORAL SCH ×2 (08:51→17:01)
--- NOTE | 2017-01-30 09:02 | Cardiology Report ---
APPROVED REPORT EXAM: Two-dimensional and M-mode echocardiogram with Doppler and color Doppler. INDICATION Congestive Heart Failure M-Mode DIMENSIONS IVSd0.8 (0.7-1.1cm)Left Atrium (MM)4.2 (1.6-4.0cm) LVDd4.5 (3.5-5.6cm)Aortic Root2.7 (2.0-3.7cm) PWd1.1 (0.7-1.1cm)Aortic Cusp Exc.1.9 (1.5-2.0cm) LVDs1.5 (2.5-4.0cm) PWs1.4 cm Normal left ventricular chamber size, systolic function and wall motion. Left ventricular ejection fraction estimated to be 60-65 %. No evidence of ventricular hypertrophy. Small pericardial effusion. Mild right ventricular and right atrial enlargement. Left atrial chamber size is within normal limits. Normal appearing aortic, mitral, puImonic and tricuspid valves. A color flow and spectral Doppler study was performed and revealed: No aortic regurgitation. Mild mitral regurgitation. Mitral diastolic velocities suggest Moderatee reduced left ventricular relaxation (Grade II). Trace tricuspid regurgitation. Tricuspid systolic velocities suggests peak right ventricular systolic pressure of 29 mmHg. Trace pulmonic regurgitation present.
[2017-01-30] MEDS: Heparin 5000 units/ml inj SUBQ SCH ×2 (09:03→20:33)
[2017-01-30] MEDS: Vitamin A&D Oint 2oz Tube TOPIC SCH ×2 (09:04→20:35)
--- NOTE | 2017-01-30 09:24 | General Progress Note ---
Assessment/Plan Status: unchanged Status Narrative Cr 3.5 Assessment/Plan status: CKD likely diabetic, 3+ proteinuria Sever Anemia Schizophrenia HTN HypoThyroidism Hematuria Plan: Urine studies Keep BP and BS in check adjust bp meds- Anemia avalos 2 D echo 65% EjFx EPO and Iron IV Iron one liter IV renal diet add Renvela Kidney ERIKA Impression: Echogenic kidneys consistent with intrinsic renal disease. Moderate right hydronephrosis with debris in the collecting system. Probable nonobstructive right renal calculus. Subjective ROS Limited/Unobtainable: No Constitutional: Reports: malaise, weakness Allergies: Coded Allergies: PENICILLINS (Verified Allergy, Unknown, 12/12/16) SHELLFISH DERIVED (Unverified Allergy, Unknown, 01/26/17) Objective Last 24 Hour Vital Signs Date Time Temp Pulse Resp B/P Pulse Ox O2 Delivery O2 Flow Rate FiO2 01/30/17 08:54 104 119/68 01/30/17 08:00 97.7 90 18 103/63 96 Room Air 01/30/17 04:00 97.6 93 18 124/76 92 Room Air 01/29/17 23:52 97.2 104 20 123/77 92 Room Air 01/29/17 20:00 97.8 96 18 126/71 91 Room Air 01/29/17 16:28 98.0 97 20 125/69 94 Room Air 01/29/17 12:55 98.0 95 20 124/63 94 Room Air Intake and Output 01/29/17 01/30/17 19:00 07:00 Intake Total 1190 ml 610 ml Output Total 700 ml 250 ml Balance 490 ml 360 ml Intake Oral 740 ml IV Total 450 ml 610 ml Output Urine Total 700 ml 250 ml # Bowel Movements 1 3 Laboratory Tests 01/30/17 04:00: Urine Eosinophils None seen 01/30/17 05:25: White Blood Count 6.1, Red Blood Count 3.27L, Hemoglobin 7.7L, Hematocrit 26.1L , Mean Corpuscular Volume 80, Mean Corpuscular Hemoglobin 23.5L, Mean Corpuscular Hemoglobin Concent 29.4L, Red Cell Distribution Width 21.4H, Platelet Count 260, Mean Platelet Volume 4.3L, Neutrophils (%) (Auto) , Lymphocytes (%) (Auto) , Monocytes (%) (Auto) , Eosinophils (%) (Auto) , Basophils (%) (Auto) , Differential Total Cells Counted 100, Neutrophils % ( Manual) 75, Lymphocytes % (Manual) 11L, Monocytes % (Manual) 11H, Eosinophils % (Manual) 3, Basophils % (Manual) 0, Band Neutrophils 0, Platelet Estimate Adequate, Platelet Morphology Normal, Hypochromasia 3+, Anisocytosis 3+, Prothrombin Time 11.5, Prothromb Time International Ratio 1.1, Activated Partial Thromboplast Time 36H, Sodium Level 140, Potassium Level 4.9, Chloride Level 103, Carbon Dioxide Level 22, Anion Gap 15, Blood Urea Nitrogen 78H, Creatinine 3.5H, Estimat Glomerular Filtration Rate 18.3, Glucose Level 114H, Calcium Level 9.5 Height (Feet): 6 Height (Inches): 2.00 Weight (Pounds): 176 General Appearance: no apparent distress Objective other PE no change CELESTE MCCALL Jan 30, 2017 09:24
--- NOTE | 2017-01-30 10:03 | General Progress Note ---
Progress Note Progress Note Pt needs blood transfusion, No family available to sign the consent. Pt is not competent to sign anything. BRAXTON SUAREZ Jan 30, 2017 10:03
[2017-01-30] MEDS ORDERED: Fleet's Mineral Oil Enema RECTAL ONE (10:15)
--- NOTE | 2017-01-30 11:39 | Diagnostic Imaging Report ---
APPROVED REPORT CPT Code: 35714 Present Symptoms Lower Extremity Pain: Shortness of breath Past History Prior Lower Extremity Venous DuplexDate : 01/21/17 BILATERAL: Imaging reveals a patent deep venous system bilaterally. There is no evidence of thrombus within the femoral, popliteal or tibial segments. The greater saphenous veins are also within normal limits. Doppler indicates normal spontaneous flow within these segments.
[2017-01-30] MEDS ORDERED: NS 550ML IV ONE (12:25)
[2017-01-30] MEDS ORDERED: LR 1000ml 1,000 ML IVLG SCH (12:27)
[2017-01-30] MEDS ORDERED: LORazepam Inj 2mg/ml 1ml IV PRN (12:30)
[2017-01-30] MEDS ORDERED: Alfentanil 2ml Inj ONE (12:30)
[2017-01-30] MEDS ORDERED: Norco 5mg/325mg tab ORAL PRN (12:30)
[2017-01-30] MEDS ORDERED: Hydromorphone 0.5mg/0.5ml inj IVP PRN (12:30)
[2017-01-30] MEDS ORDERED: DiphenhydrAMINE 50mg/ml Inj IVP PRN (12:30)
[2017-01-30] MEDS ORDERED: Midazolam 2mg/2ml Inj IVP PRN (12:30)
[2017-01-30] MEDS ORDERED: Propofol 10mg/ml 20ml IV ONE (12:30)
[2017-01-30] MEDS ORDERED: Norco 7.5mg/325mg tab ORAL PRN (12:30)
[2017-01-30] MEDS ORDERED: Atropine Inj 1mg/10ml Syr IV PRN (12:30)
[2017-01-30] MEDS ORDERED: LR 1000ml ONE (12:30)
[2017-01-30] MEDS ORDERED: oxyCODONE HCL/Acetaminophen 5/325mg ORAL PRN (12:30)
[2017-01-30] MEDS ORDERED: Meperidine 25mg/0.5ml Inj (FOR RIGORS ONLY) IV PRN (12:30)
[2017-01-30] MEDS ORDERED: fentaNYL 100 mcg/2 mL IV PRN (12:30)
[2017-01-30] MEDS ORDERED: Lidocaine 1% MPF 10mg/ml 5ml ONE (12:30)
[2017-01-30] MEDS ORDERED: Midazolam 2mg/2ml Inj ONE (12:30)
--- NOTE | 2017-01-30 12:33 | Pre-Procedure Note/Attestation ---
Pre-Procedure Note/Attestation Complete Prior to Procedure Planned Procedure: not applicable Procedure Narrative: esophagogastroduodenoscopy and colonoscopy Indications for Procedure Pre-Operative Diagnosis: anemia Attestation I attest that I discussed the nature of the procedure; its benefits; risks and complications; and alternatives (and the risks and benefits of such alternatives ), prior to the procedure, with the patient (or the patient's legal parts counter representative). I attest that, if there was a reasonable possibility of needing a blood transfusion, the patient (or the patient's legal parts counter representative) was given the [facility] standardized written summary, pursuant to the [place] Blood Safety Act ([place] Health and Safety Code # 1645, as amended). I attest that I re-evaluated the patient just prior to the surgery and that there has been no change in the patient's H&P, except as documented below: CASSIE BLOUTN Jan 30, 2017 12:33
--- NOTE | 2017-01-30 12:42 | Endoscopy Procedure Note ---
Endoscopy Procedure Note Indication for Procedure: anemia Procedures Performed: EGD, colonoscopy Operative Findings/Diagnosis: gastritis, gastric polyp Specimen: yes Pt Tolerated Procedure Well: Yes Estimated Blood Loss: none Anesthesiologist: charo Anesthesia: MAC Implant(s) used?: No 50 yrs or older w/o bx or poly: Not Applicable 10yrs. F/U not recommended: Not Applicable CASSIE BLOUNT Jan 30, 2017 12:42
--- NOTE | 2017-01-30 12:49 | Anethesia Preoperative Eval ---
Anesthesia Pre-op PMH/ROS General Date of Evaluation: Jan 30, 2017 Time of Evaluation: 12:28 Anesthesiologist: Miki ASA Score: ASA 4 Mallampati Score Class I : Soft palate, uvula, fauces, pillars visible Class II: Soft palate, uvula, fauces visible Class III: Soft palate, base of uvula visible Class IV: Only hard plate visible Mallampati Classification: Class III Surgeon: Mor Diagnosis: Anemia Surgical Procedure: EGD Anesthesia History: none Social History: smoking Family History: no anesthesia problems Allergies: Coded Allergies: PENICILLINS (Verified Allergy, Unknown, 12/12/16) SHELLFISH DERIVED (Unverified Allergy, Unknown, 01/26/17) Medications: see eMAR Past Medical History Cardiovascular: Reports: HTN, other - Smoker Neurologic/Psychiatric: Reports: CVA, dementia Endocrine: Reports: DM Hematology/Immune: Reports: anemia PSxH Narrative: Adrenal SX Anesthesia Pre-op Phys. Exam Physician Exam Last Vital Signs Date Time Temp Pulse Resp B/P Pulse Ox O2 Delivery O2 Flow Rate FiO2 01/30/17 11:58 97.2 98 16 105/58 98 Room Air 01/29/17 04:30 2.0 Constitutional: NAD Neurologic: CN 2-12 intact Cardiovascular: RRR Respiratory: CTA Gastrointestinal: S/NT/ND Airway Exam Mallampati Score: Class II MO: limited ROM: limited Teeth: missing Anesthesia Pre-op A/P Labs Hematology Test 01/30/17 05:25 White Blood Count 6.1 K/UL (4.8-10.8) Red Blood Count 3.27 M/UL (4.70-6.10) L Hemoglobin 7.7 G/DL (14.2-18.0) L Hematocrit 26.1 % (42.0-52.0) L Mean Corpuscular Volume 80 FL (80-99) Mean Corpuscular Hemoglobin 23.5 PG (27.0-31.0) L Mean Corpuscular Hemoglobin Concent 29.4 G/DL (32.0-36.0) L Red Cell Distribution Width 21.4 % (11.6-14.8) H Platelet Count 260 K/UL (150-450) Mean Platelet Volume 4.3 FL (6.5-10.1) L Neutrophils (%) (Auto) % (45.0-75.0) Lymphocytes (%) (Auto) % (20.0-45.0) Monocytes (%) (Auto) % (1.0-10.0) Eosinophils (%) (Auto) % (0.0-3.0) Basophils (%) (Auto) % (0.0-2.0) Differential Total Cells Counted 100 Neutrophils % (Manual) 75 % (45-75) Lymphocytes % (Manual) 11 % (20-45) L Monocytes % (Manual) 11 % (1-10) H Eosinophils % (Manual) 3 % (0-3) Basophils % (Manual) 0 % (0-2) Band Neutrophils 0 % (0-8) Platelet Estimate Adequate Platelet Morphology Normal Hypochromasia 3+ Anisocytosis 3+ Coagulation Test 01/30/17 05:25 Prothrombin Time 11.5 SEC (9.30-11.50) Prothromb Time International Ratio 1.1 (0.9-1.1) Activated Partial Thromboplast Time 36 SEC (23-33) H Chemistry Test 01/30/17 05:25 Sodium Level 140 mEQ/L (135-145) Potassium Level 4.9 mEQ/L (3.4-4.9) Chloride Level 103 mEQ/L (98-107) Carbon Dioxide Level 22 mEQ/L (20-30) Anion Gap 15 (5-15) Blood Urea Nitrogen 78 mg/dL (7-23) H Creatinine 3.5 mg/dL (0.7-1.2) H Estimat Glomerular Filtration Rate 18.3 mL/min (>60) Glucose Level 114 mg/dL (74-106) H Calcium Level 9.5 mg/dL (8.6-10.2) Risk Assessment & Plan Assessment: ASA 4 Plan: GA Status Change Before Surgery: Tevin Paul MD Jan 30, 2017 12:49
--- NOTE | 2017-01-30 12:50 | Immediate Post-Op Evaluation ---
Immediate Post-Op Evalulation Immediate Post-Op Evalulation Procedure: EGD Date of Evaluation: Jan 30, 2017 Time of Evaluation: 13:13 IV Fluids: 100 LR Blood Products: 0 Estimated Blood Loss: 0 Urinary Output: 0 Blood Pressure Systolic: 106 Blood Pressure Diastolic: 69 Pulse Rate: 98 Respiratory Rate: 16 O2 Sat by Pulse Oximetry: 97 Temperature (Fahrenheit): 97.3 Pain Score (1-10): 1 Nausea: No Vomiting: No Complications 0 Patient Status: awake, reacts, patent, none Hydration Status: adequate Tevin Rosario MD Jan 30, 2017 12:50
--- NOTE | 2017-01-30 12:51 | 48 Hour Post Anesthesia Eval ---
Post Anesthesia Evaluation Procedure: EGD Date of Evaluation: Jan 30, 2017 Time of Evaluation: 15:24 Blood Pressure Systolic: 132 0: 76 Pulse Rate: 89 Respiratory Rate: 18 Temperature (Fahrenheit): 98.2 O2 Sat by Pulse Oximetry: 96 Airway: patent Nausea: No Vomiting: No Pain Intensity: 1 Hydration Status: adequate Cardiopulmonary Status: Stable Mental Status/LOC: patient returned to baseline Follow-up Care/Observations: 0 Post-Anesthesia Complications: 0 Follow-up care needed: N/A Tevin Rosario MD Jan 30, 2017 12:51
--- NOTE | 2017-01-30 15:52 | Pulmonology Progress Note ---
Assessment/Plan Assessment/Plan ASSESSMENT microcytic iron deficiency anemia of chronic renal disease s/p EGD gastritis gastric poly hematuria mild hyperkalemia CKD diastolic dysfunction DM hx of CVA HTN hypothyroidism with elevated TSH schizophrenia PLAN OF CARE MS floor renal US with echogenic kidneys consistent with intrinsic renal disease. Moderate right hydronephrosis nephrology follows creat trending up. avoid nephrotoxic monitor renal parameters, lytes urine studies ECHO with EF 60-65% and RVSP of 29, as well as evidence of diastolic dysfunction anemia workup with low iron as well as evidence of anemia of chronic disease on EPO on Venofer monitor HH, transfuse prn with goal to keep Hgb above 7 stool OB negative CEA - WNL GI follows s/p EGD today, 01/30 with findings of gastritis fup with biopsy results BS management with SS of insulin [id number] BP management with CCB and optimize as needed lipid panel WNL hold ASA, Heparin Venous Duplex BLE - negative apply SCD TSH elevated, dose of levothyroxine increased psych eval to optimize psychotropic medication regimen case discussed and evaluated by supervising physician Subjective Allergies: Coded Allergies: PENICILLINS (Verified Allergy, Unknown, 12/12/16) SHELLFISH DERIVED (Unverified Allergy, Unknown, 01/26/17) Subjective denies chest pain, SOB s/p EGD earlier today Objective Last 24 Hour Vital Signs Date Time Temp Pulse Resp B/P Pulse Ox O2 Delivery O2 Flow Rate FiO2 01/30/17 13:25 97.6 98 22 107/72 95 Nasal Cannula 3.0 01/30/17 13:12 99 19 112/68 95 Nasal Cannula 3.0 01/30/17 13:07 95 19 108/62 97 Simple Mask 6.0 01/30/17 13:04 89 18 96 01/30/17 13:03 98 16 97 01/30/17 13:02 97.3 99 19 106/82 97 Simple Mask 6.0 01/30/17 11:58 97.2 98 16 105/58 98 Room Air 01/30/17 08:54 104 119/68 01/30/17 08:00 97.7 90 18 103/63 96 Room Air 01/30/17 04:00 97.6 93 18 124/76 92 Room Air 01/29/17 23:52 97.2 104 20 123/77 92 Room Air 01/29/17 20:00 97.8 96 18 126/71 91 Room Air 01/29/17 16:28 98.0 97 20 125/69 94 Room Air Intake and Output 01/29/17 01/30/17 19:00 07:00 Intake Total 1190 ml 610 ml Output Total 700 ml 250 ml Balance 490 ml 360 ml Intake Oral 740 ml IV Total 450 ml 610 ml Output Urine Total 700 ml 250 ml # Bowel Movements 1 3 Objective General Appearance: no apparent distress, alert Lines, tubes and drains: peripheral HEENT: normocephalic, atraumatic, anicteric, mucous membranes moist Neck: supple Respiratory/Chest: lungs clear, no respiratory distress, no accessory muscle use Cardiovascular/Chest: regular rhythm, tachycardia Abdomen: normal bowel sounds, non tender, soft Extremities: non-tender, no calf tenderness, normal capillary refill Neurologic: alert Musculoskeletal: normal muscle bulk Laboratory Tests 01/30/17 04:00: Urine Eosinophils None seen 01/30/17 05:25: White Blood Count 6.1, Red Blood Count 3.27L, Hemoglobin 7.7L, Hematocrit 26.1L , Mean Corpuscular Volume 80, Mean Corpuscular Hemoglobin 23.5L, Mean Corpuscular Hemoglobin Concent 29.4L, Red Cell Distribution Width 21.4H, Platelet Count 260, Mean Platelet Volume 4.3L, Neutrophils (%) (Auto) , Lymphocytes (%) (Auto) , Monocytes (%) (Auto) , Eosinophils (%) (Auto) , Basophils (%) (Auto) , Differential Total Cells Counted 100, Neutrophils % ( Manual) 75, Lymphocytes % (Manual) 11L, Monocytes % (Manual) 11H, Eosinophils % (Manual) 3, Basophils % (Manual) 0, Band Neutrophils 0, Platelet Estimate Adequate, Platelet Morphology Normal, Hypochromasia 3+, Anisocytosis 3+, Prothrombin Time 11.5, Prothromb Time International Ratio 1.1, Activated Partial Thromboplast Time 36H, Sodium Level 140, Potassium Level 4.9, Chloride Level 103, Carbon Dioxide Level 22, Anion Gap 15, Blood Urea Nitrogen 78H, Creatinine 3.5H, Estimat Glomerular Filtration Rate 18.3, Glucose Level 114H, Calcium Level 9.5 Current Medications Medications (Trade) Dose Ordered Sig/Korey Route PRN Reason Start Time Stop Time Status Last Admin Dose Admin Acetaminophen (Tylenol) 650 mg Q4H PRN ORAL Temp > 100.5 01/28/17 11:15 02/27/17 11:14 Acetaminophen (Tylenol) 650 mg Q4H PRN ORAL Mild Pain (Pain Scale 1-3) 01/28/17 13:30 02/27/17 13:29 Acetaminophen/ Hydrocodone Bitart (Treichlers 5/325) 1 tab Q1H PRN ORAL Mild Pain (Pain Scale 1-3) 01/30/17 12:30 01/30/17 17:00 Acetaminophen/ Hydrocodone Bitart (Treichlers 7.5/325) 1 ea Q1H PRN ORAL Moderate Pain (Pain Scale 4-6) 01/30/17 12:30 01/30/17 17:00 Al Hydroxide/Mg Hydroxide (Mylanta) 15 ml Q1H PRN ORAL gi upset 01/30/17 12:30 01/30/17 17:00 Amlodipine Besylate (Norvasc) 2.5 mg DAILY ORAL 01/29/17 09:00 02/28/17 08:59 01/30/17 08:54 Atropine Sulfate (Atropine) 0.5 mg Q5M PRN IV HR <40 01/30/17 12:30 01/30/17 17:00 Clonidine HCl (Catapres) 0.1 mg Q4H PRN ORAL bp over 160 syst 01/28/17 11:30 02/27/17 11:29 Dextrose (Dextrose 50%) STAT PRN IV Hypoglycemia 01/28/17 11:15 02/27/17 11:14 Diphenhydramine HCl (Benadryl) 25 mg Q15M PRN IVP Itching 01/30/17 12:30 01/30/17 17:00 Divalproex Sodium (Depakote ER) 1,500 mg BEDTIME ORAL 01/29/17 21:00 02/28/17 20:59 01/29/17 20:36 Epoetin Ariel (Procrit (for non ESRD use)) 10,000 units SUN-WED-SUN SUBQ 01/29/17 21:00 02/28/17 20:59 01/29/17 20:37 Fentanyl Citrate (Sublimaze 100 mcg/2 mL) 25 mcg Q10M PRN IV Moderate Pain (Pain Scale 4-6) 01/30/17 12:30 01/30/17 17:00 Heparin Sodium (Porcine) (Heparin 5000 units/ml) 5,000 units EVERY 12 HOURS SUBQ 01/28/17 21:00 02/27/17 20:59 01/30/17 09:03 Hydralazine HCl (Apresoline) 5 mg Q30M PRN IV SBP>160 / DBP>90 01/30/17 12:30 01/30/17 17:00 Hydromorphone HCl (Dilaudid) 0.5 mg Q15M PRN IVP Severe Pain (Pain Scale 7-10) 01/30/17 12:30 01/30/17 17:00 Insulin Aspart (NovoLOG) BEFORE MEALS AND HS SUBQ 01/28/17 11:30 02/27/17 11:29 01/30/17 15:39 Iron Sucrose/ Sodium Chloride (Venofer/Sodium Chloride) 60 ml @ 240 mls/hr BEDTIME IVPB 01/29/17 21:00 02/02/17 21:14 01/29/17 20:35 Levothyroxine Sodium (Synthroid) 75 mcg DAILY@0630 ORAL 01/29/17 06:30 02/28/17 06:29 01/29/17 06:49 Lorazepam (Ativan 2mg/ml 1ml) 0.5 mg Q4H PRN IV For Anxiety 01/28/17 11:15 02/04/17 11:14 Lorazepam (Ativan 2mg/ml 1ml) 1 mg Q15M PRN IV For Anxiety 01/30/17 12:30 01/30/17 17:00 Meperidine HCl (Demerol) 25 mg Q5M PRN IV Shivering. May repeat x 1 01/30/17 12:30 01/30/17 17:00 Midazolam HCl (Versed 2mg/2ml vial) 1 mg Q15M PRN IVP For Anxiety 01/30/17 12:30 01/30/17 17:00 Morphine Sulfate (Morphine Sulfate) 1 mg Q4H PRN IVP Pain 4-10 01/28/17 11:30 02/04/17 11:29 01/28/17 21:14 Ondansetron HCl (Zofran) 4 mg Q1H PRN IVP Nausea & Vomiting 01/30/17 12:30 01/30/17 17:00 Ondansetron HCl (Zofran) 4 mg Q6H PRN IVP Nausea & Vomiting 01/28/17 11:30 02/27/17 11:29 Oxycodone/ Acetaminophen (Percocet 5-325) 1 tab Q1H PRN ORAL Severe Pain (Pain Scale 7-10) 01/30/17 12:30 01/30/17 17:00 Pantoprazole (Protonix) 40 mg EVERY 12 HOURS ORAL 01/28/17 21:00 02/27/17 20:59 01/30/17 09:04 Polyethylene Glycol (Miralax) 17 gm HSPRN PRN ORAL Constipation 01/28/17 20:00 02/27/17 19:59 Risperidone 2 mg 2 mg BEDTIME ORAL 01/28/17 21:00 02/27/17 20:59 01/29/17 20:36 Sevelamer Carbonate (Renvela) 800 mg THREE TIMES A DAY ORAL 01/30/17 13:00 03/01/17 12:59 Tamsulosin HCl (Flomax) 0.4 mg BID ORAL 01/28/17 18:00 02/27/17 17:59 01/30/17 08:51 Vitamin A/Vitamin D (A & D Oint) 1 applic EVERY 12 HOURS TOPIC 01/28/17 21:00 02/27/17 20:59 01/30/17 09:04 Zolpidem Tartrate (Ambien) 5 mg HSPRN PRN ORAL Insomnia 01/28/17 20:00 02/27/17 19:59 Sandi Shanks NP (Vanchtein) Jan 30, 2017 15:51
--- NOTE | 2017-01-30 17:30 | Procedure Note ---
DATE OF PROCEDURE: 01/30/2017 SURGEON: John Juares M.D. PROCEDURE: Upper endoscopy with biopsy. ANESTHESIOLOGIST: Tevin Rosario M.D. INSTRUMENT: Olympus adult flexible upper endoscope. INDICATION: Anemia. REASON FOR PROCEDURE: The procedure, risks, benefits, and possible consequences, including hemorrhage, aspiration, perforation and infection, and alternative treatments, were explained to the patient/legal guardian by Dr. John Juares and the patient/legal guardian understood and accepted these risks. PROCEDURE IN DETAIL: After informed consent was obtained and the patient was adequately sedated, Olympus upper endoscope was advanced from mouth into the second portion of the duodenum and retroflexion was performed in the stomach. The patient had evidence of diffuse gastritis. Random biopsy from antrum was obtained to rule out H. pylori infection. The patient also had multiple polyps most probably 5 or 6 polyps in the body of the stomach highly suspicious for fundic gland polyps. One of them was biopsied. At this time, the upper endoscope was retrieved and the patient was turned over for colonoscopy. The prep was very poor. The patient had some solid stool in the diaper that he was wearing, so we decided to abort the colonoscopy and we did not even try. SUMMARY OF FINDINGS: 1. Gastritis. 2. Gastric polyp. 3. Colonoscopy was not done given the prep was not adequate. RECOMMENDATIONS: 1. Follow stool for OB. If the patient shows any signs or symptoms of lower GI bleeding, we will consider doing repeat colonoscopy with the prep. Otherwise, the patient will follow as an outpatient. 2. Follow up biopsies and treat accordingly. I want to thank Dr. Roman for this kind referral. John Juares M.D. DR: RAMONA JOB#: [id number] CC:
[2017-01-30] MEDS: Iron Sucrose 100 MG in NS 55 ML IVPB SCH (20:32)
[2017-01-30] MEDS: Depakote ER 500mg tab ORAL SCH (20:33)
[2017-01-31] VITALS: BP 105/63
--- NOTE | 2017-01-31 00:30 | Progress Note ---
DATE: 01/30/2017 SUBJECTIVE: The patient is still irritable, uncooperative, guarded, not engaged during evaluation. Compliant with his medication. MENTAL STATUS EXAMINATION: The patient is alert and oriented times self and place. Mood is irritable. Affect is constricted, congruent with mood. Thought process is concrete. Thought content, there is no suicidal or homicidal ideation. ASSESSMENT: Schizophrenia, stable. PLAN: 1. The patient will be continued on current medications. 2. Provided the patient with supportive therapy and reality orientation. We will continue to follow and readjust the medications. Dale Galicia M.D. DR: ABHINAV JOB#: [id number] CC:
[2017-01-31 04:00] VITALS: BP 116/65
[2017-01-31] MEDS: NovoLOG Insulin Flexpen SUBQ SCH ×4 (05:33→21:17)
[2017-01-31 07:09] LABS: BASOPHILS % (AUTO) 1.4 % (0.0-2.0); EOSINOPHILS % (AUTO) 1.2 % (0.0-3.0); LYMPHOCYTES % (AUTO) 8.3 % (20.0-45.0); MEAN CORPUSCULAR HEMOGLOBIN 23.7 PG (27.0-31.0); MEAN CORPUSCULAR HGB CONC 28.8 G/DL (32.0-36.0); MEAN CORPUSCULAR VOLUME 82 FL (80-99); MEAN PLATELET VOLUME 3.7 FL (6.5-10.1); NEUTROPHILS % (AUTO) 73.1 % (45.0-75.0); PLATELET COUNT 225 K/UL (150-450); RED BLOOD COUNT 3.36 M/UL (4.70-6.10); RED CELL DISTRIBUTION WIDTH 21.6 % (11.6-14.8); WHITE BLOOD COUNT 5.3 K/UL (4.8-10.8)
[2017-01-31 07:30] LABS: CALCIUM 9.6 mg/dL (8.6-10.2); CREATININE 3.8 mg/dL (0.7-1.2); GLOMERULAR FILTRATION RATE 16.6 mL/min (>60)
[2017-01-31 09:24] LABS: OTHERS PATHOLOGIST COMMENT
[2017-01-31 10:28] VITALS: BP 112/69
[2017-01-31] MEDS: Vitamin A&D Oint 2oz Tube TOPIC SCH ×2 (10:35→21:18)
[2017-01-31] MEDS: Tamsulosin 0.4mg cap ORAL SCH ×2 (10:35→17:49)
[2017-01-31] MEDS: Heparin 5000 units/ml inj SUBQ SCH ×2 (10:38→21:17)
--- NOTE | 2017-01-31 10:40 | GI Progress Note ---
Assessment/Plan Problems: (1) Iron deficiency anemia ICD Codes: D50.9 - Iron deficiency anemia, unspecified SNOMED: 65229599 (2) Schizophrenia ICD Codes: F20.9 - Schizophrenia, unspecified SNOMED: 58831099 (3) Hypothyroidism ICD Codes: E03.9 - Hypothyroidism, unspecified SNOMED: 20275588 (4) Diabetes ICD Codes: E11.9 - Type 2 diabetes mellitus without complications SNOMED: 75016886 (5) Anemia ICD Codes: D64.9 - Anemia, unspecified SNOMED: 074149935 Status: unchanged Status Narrative Discussed with Dr. Juares. Assessment/Plan S/P EGD SUMMARY OF FINDINGS: 1. Gastritis. 2. Gastric polyp. 3. Colonoscopy was not done given the prep was not adequate. RECOMMENDATIONS: f/u OB stool >> negative, repeat colonoscopy as outpatient f/u bx reports prn transfusions iron deficiency >> venofer ppi fu labs Subjective Subjective limited Objective Last 24 Hour Vital Signs Date Time Temp Pulse Resp B/P Pulse Ox O2 Delivery O2 Flow Rate FiO2 01/31/17 10:28 69 112/69 01/31/17 04:00 98.7 91 20 116/65 93 Room Air 01/31/17 00:00 98.6 98 21 105/63 90 Nasal Cannula 01/30/17 20:00 98.0 103 20 128/56 90 Nasal Cannula 01/30/17 16:00 97.5 100 19 124/78 90 Nasal Cannula 01/30/17 13:25 97.6 98 22 107/72 95 Nasal Cannula 3.0 01/30/17 13:12 99 19 112/68 95 Nasal Cannula 3.0 01/30/17 13:07 95 19 108/62 97 Simple Mask 6.0 01/30/17 13:04 89 18 96 01/30/17 13:03 98 16 97 01/30/17 13:02 97.3 99 19 106/82 97 Simple Mask 6.0 01/30/17 11:58 97.2 98 16 105/58 98 Room Air Intake and Output 01/30/17 01/31/17 19:00 07:00 Intake Total 100 ml 60 ml Output Total 700 ml 300 ml Balance -600 ml -240 ml IV Total 100 ml 60 ml Output Urine Total 700 ml 300 ml # Bowel Movements 5 Laboratory Tests Test 01/31/17 04:00 01/31/17 06:00 Urine Eosinophils None seen White Blood Count 5.3 K/UL (4.8-10.8) Red Blood Count 3.36 M/UL (4.70-6.10) L Hemoglobin 8.0 G/DL (14.2-18.0) L Hematocrit 27.7 % (42.0-52.0) L Mean Corpuscular Volume 82 FL (80-99) Mean Corpuscular Hemoglobin 23.7 PG (27.0-31.0) L Mean Corpuscular Hemoglobin Concent 28.8 G/DL (32.0-36.0) L Red Cell Distribution Width 21.6 % (11.6-14.8) H Platelet Count 225 K/UL (150-450) Mean Platelet Volume 3.7 FL (6.5-10.1) L Neutrophils (%) (Auto) 73.1 % (45.0-75.0) Lymphocytes (%) (Auto) 8.3 % (20.0-45.0) L Monocytes (%) (Auto) 16.0 % (1.0-10.0) H Eosinophils (%) (Auto) 1.2 % (0.0-3.0) Basophils (%) (Auto) 1.4 % (0.0-2.0) Sodium Level 141 mEQ/L (135-145) Potassium Level 5.0 mEQ/L (3.4-4.9) H Chloride Level 104 mEQ/L (98-107) Carbon Dioxide Level 21 mEQ/L (20-30) Anion Gap 16 (5-15) H Blood Urea Nitrogen 80 mg/dL (7-23) H Creatinine 3.8 mg/dL (0.7-1.2) H Estimat Glomerular Filtration Rate 16.6 mL/min (>60) Glucose Level 87 mg/dL (74-106) Calcium Level 9.6 mg/dL (8.6-10.2) Height (Feet): 6 Height (Inches): 2.00 Weight (Pounds): 176 General Appearance: no apparent distress, alert, thin Cardiovascular: normal rate Respiratory/Chest: normal breath sounds, no respiratory distress Abdominal Exam: normal bowel sounds, non tender, soft Veronica Woods N.P. Jan 31, 2017 10:40
--- NOTE | 2017-01-31 10:47 | General Progress Note ---
Assessment/Plan Status: unchanged Status Narrative Cr rising Assessment/Plan status: CKD likely diabetic, 3+ proteinuria Sever Anemia Schizophrenia HTN HypoThyroidism Hematuria Plan: may lead to diaslysis- if DC need fu as OP- Keep BP and BS in check adjust bp meds- Anemia avalos 2 D echo 65% EjFx EPO and Iron IV Iron one liter IV renal diet add Renvela Kidney ERIKA Impression: Echogenic kidneys consistent with intrinsic renal disease. Moderate right hydronephrosis with debris in the collecting system. Probable nonobstructive right renal calculus. Subjective ROS Limited/Unobtainable: No Constitutional: Reports: malaise Allergies: Coded Allergies: PENICILLINS (Verified Allergy, Unknown, 12/12/16) SHELLFISH DERIVED (Unverified Allergy, Unknown, 01/26/17) Objective Last 24 Hour Vital Signs Date Time Temp Pulse Resp B/P Pulse Ox O2 Delivery O2 Flow Rate FiO2 01/31/17 10:34 69 112/69 01/31/17 10:28 69 112/69 01/31/17 04:00 98.7 91 20 116/65 93 Room Air 01/31/17 00:00 98.6 98 21 105/63 90 Nasal Cannula 01/30/17 20:00 98.0 103 20 128/56 90 Nasal Cannula 01/30/17 16:00 97.5 100 19 124/78 90 Nasal Cannula 01/30/17 13:25 97.6 98 22 107/72 95 Nasal Cannula 3.0 01/30/17 13:12 99 19 112/68 95 Nasal Cannula 3.0 01/30/17 13:07 95 19 108/62 97 Simple Mask 6.0 01/30/17 13:04 89 18 96 01/30/17 13:03 98 16 97 01/30/17 13:02 97.3 99 19 106/82 97 Simple Mask 6.0 01/30/17 11:58 97.2 98 16 105/58 98 Room Air Intake and Output 01/30/17 01/31/17 19:00 07:00 Intake Total 100 ml 60 ml Output Total 700 ml 300 ml Balance -600 ml -240 ml IV Total 100 ml 60 ml Output Urine Total 700 ml 300 ml # Bowel Movements 5 Laboratory Tests 01/31/17 04:00: Urine Eosinophils None seen 01/31/17 06:00: White Blood Count 5.3, Red Blood Count 3.36L, Hemoglobin 8.0L, Hematocrit 27.7L , Mean Corpuscular Volume 82, Mean Corpuscular Hemoglobin 23.7L, Mean Corpuscular Hemoglobin Concent 28.8L, Red Cell Distribution Width 21.6H, Platelet Count 225, Mean Platelet Volume 3.7L, Neutrophils (%) (Auto) 73.1, Lymphocytes (%) (Auto) 8.3L, Monocytes (%) (Auto) 16.0H, Eosinophils (%) (Auto) 1.2, Basophils (%) (Auto) 1.4, Sodium Level 141, Potassium Level 5.0H, Chloride Level 104, Carbon Dioxide Level 21, Anion Gap 16H, Blood Urea Nitrogen 80H, Creatinine 3.8H, Estimat Glomerular Filtration Rate 16.6, Glucose Level 87, Calcium Level 9.6 Height (Feet): 6 Height (Inches): 2.00 Weight (Pounds): 176 General Appearance: no apparent distress, confused Cardiovascular: normal rate Respiratory/Chest: decreased breath sounds Abdomen: soft Objective other PE no change CELESTE MCCALL Jan 31, 2017 10:47
[2017-01-31 12:26] VITALS: BP 115/67
[2017-01-31 16:00] VITALS: BP 121/74
--- NOTE | 2017-01-31 16:37 | Pulmonology Progress Note ---
Assessment/Plan Problems: (1) GI bleeding (2) CKD (chronic kidney disease) (3) Hypothyroidism (4) Diabetes (5) Bipolar disorder (6) History of CVA (cerebrovascular accident) (7) Anemia Assessment/Plan prbc today GI evaluation appreciated, EGD negative for active bleeding OB negative check electrolytes anemia w/u in process, hem evaluation endo evaluation for increased TSH might need HD soon, GFR 16 Subjective ROS Limited/Unobtainable: No Interval Events: comfortable Allergies: Coded Allergies: PENICILLINS (Verified Allergy, Unknown, 12/12/16) SHELLFISH DERIVED (Unverified Allergy, Unknown, 01/26/17) Objective Last 24 Hour Vital Signs Date Time Temp Pulse Resp B/P Pulse Ox O2 Delivery O2 Flow Rate FiO2 01/31/17 12:26 97.7 91 19 115/67 96 Nasal Cannula 01/31/17 10:34 69 112/69 01/31/17 10:28 69 112/69 01/31/17 04:00 98.7 91 20 116/65 93 Room Air 01/31/17 00:00 98.6 98 21 105/63 90 Nasal Cannula 01/30/17 20:00 98.0 103 20 128/56 90 Nasal Cannula Intake and Output 01/30/17 01/31/17 19:00 07:00 Intake Total 100 ml 60 ml Output Total 700 ml 300 ml Balance -600 ml -240 ml IV Total 100 ml 60 ml Output Urine Total 700 ml 300 ml # Bowel Movements 5 General Appearance: no acute distress HEENT: atraumatic Respiratory/Chest: chest wall non-tender, normal breath sounds Cardiovascular: normal peripheral pulses, normal rate Abdomen: normal bowel sounds, soft, non tender Genitourinary: normal external genitalia Extremities: no clubbing 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 grossly normal Laboratory Tests 01/31/17 04:00: Urine Eosinophils None seen 01/31/17 06:00: White Blood Count 5.3, Red Blood Count 3.36L, Hemoglobin 8.0L, Hematocrit 27.7L , Mean Corpuscular Volume 82, Mean Corpuscular Hemoglobin 23.7L, Mean Corpuscular Hemoglobin Concent 28.8L, Red Cell Distribution Width 21.6H, Platelet Count 225, Mean Platelet Volume 3.7L, Neutrophils (%) (Auto) 73.1, Lymphocytes (%) (Auto) 8.3L, Monocytes (%) (Auto) 16.0H, Eosinophils (%) (Auto) 1.2, Basophils (%) (Auto) 1.4, Sodium Level 141, Potassium Level 5.0H, Chloride Level 104, Carbon Dioxide Level 21, Anion Gap 16H, Blood Urea Nitrogen 80H, Creatinine 3.8H, Estimat Glomerular Filtration Rate 16.6, Glucose Level 87, Calcium Level 9.6 Current Medications Medications (Trade) Dose Ordered Sig/Korey Route PRN Reason Start Time Stop Time Status Last Admin Dose Admin Acetaminophen (Tylenol) 650 mg Q4H PRN ORAL Temp > 100.5 01/28/17 11:15 02/27/17 11:14 Acetaminophen (Tylenol) 650 mg Q4H PRN ORAL Mild Pain (Pain Scale 1-3) 01/28/17 13:30 02/27/17 13:29 Amlodipine Besylate (Norvasc) 2.5 mg DAILY ORAL 01/29/17 09:00 02/28/17 08:59 01/31/17 10:34 Clonidine HCl (Catapres) 0.1 mg Q4H PRN ORAL bp over 160 syst 01/28/17 11:30 02/27/17 11:29 Dextrose (Dextrose 50%) STAT PRN IV Hypoglycemia 01/28/17 11:15 02/27/17 11:14 Divalproex Sodium (Depakote ER) 1,500 mg BEDTIME ORAL 01/29/17 21:00 02/28/17 20:59 01/30/17 20:33 Epoetin Ariel (Procrit (for non ESRD use)) 10,000 units SUN-SUN-SUN SUBQ 01/29/17 21:00 02/28/17 20:59 01/29/17 20:37 Heparin Sodium (Porcine) (Heparin 5000 units/ml) 5,000 units EVERY 12 HOURS SUBQ 01/28/17 21:00 02/27/17 20:59 01/31/17 10:38 Insulin Aspart (NovoLOG) BEFORE MEALS AND HS SUBQ 01/28/17 11:30 02/27/17 11:29 01/31/17 12:45 Iron Sucrose/ Sodium Chloride (Venofer/Sodium Chloride) 60 ml @ 240 mls/hr BEDTIME IVPB 01/29/17 21:00 02/02/17 21:14 01/30/17 20:32 Levothyroxine Sodium (Synthroid) 75 mcg DAILY@0630 ORAL 01/29/17 06:30 02/28/17 06:29 01/31/17 05:33 Lorazepam (Ativan 2mg/ml 1ml) 0.5 mg Q4H PRN IV For Anxiety 01/28/17 11:15 02/04/17 11:14 Morphine Sulfate (Morphine Sulfate) 1 mg Q4H PRN IVP Pain 4-10 01/28/17 11:30 02/04/17 11:29 01/28/17 21:14 Ondansetron HCl (Zofran) 4 mg Q6H PRN IVP Nausea & Vomiting 01/28/17 11:30 02/27/17 11:29 Pantoprazole (Protonix) 40 mg EVERY 12 HOURS ORAL 01/28/17 21:00 02/27/17 20:59 01/31/17 10:35 Polyethylene Glycol (Miralax) 17 gm HSPRN PRN ORAL Constipation 01/28/17 20:00 02/27/17 19:59 Risperidone 2 mg 2 mg BEDTIME ORAL 01/28/17 21:00 02/27/17 20:59 01/30/17 20:33 Sevelamer Carbonate (Renvela) 800 mg THREE TIMES A DAY ORAL 01/30/17 13:00 03/01/17 12:59 01/31/17 13:24 Tamsulosin HCl (Flomax) 0.4 mg BID ORAL 01/28/17 18:00 02/27/17 17:59 01/31/17 10:35 Vitamin A/Vitamin D (A & D Oint) 1 applic EVERY 12 HOURS TOPIC 01/28/17 21:00 02/27/17 20:59 01/31/17 10:35 Zolpidem Tartrate (Ambien) 5 mg HSPRN PRN ORAL Insomnia 01/28/17 20:00 02/27/17 19:59 BRAXTON SUAREZ Jan 31, 2017 16:37
--- NOTE | 2017-01-31 16:51 | Pulmonology Progress Note ---
Assessment/Plan Problems: (1) GI bleeding (2) CKD (chronic kidney disease) (3) Hypothyroidism (4) Diabetes (5) Bipolar disorder (6) History of CVA (cerebrovascular accident) (7) Anemia Assessment/Plan prbc today GI evaluation appreciated, EGD negative for active bleeding OB negative check electrolytes anemia w/u in process, hem evaluation endo evaluation for increased TSH might need HD soon, GFR 16 Subjective Allergies: Coded Allergies: PENICILLINS (Verified Allergy, Unknown, 12/12/16) SHELLFISH DERIVED (Unverified Allergy, Unknown, 01/26/17) Objective Last 24 Hour Vital Signs Date Time Temp Pulse Resp B/P Pulse Ox O2 Delivery O2 Flow Rate FiO2 01/31/17 16:00 97.1 99 19 121/74 91 Room Air 01/31/17 12:26 97.7 91 19 115/67 96 Nasal Cannula 01/31/17 10:34 69 112/69 01/31/17 10:28 69 112/69 01/31/17 04:00 98.7 91 20 116/65 93 Room Air 01/31/17 00:00 98.6 98 21 105/63 90 Nasal Cannula 01/30/17 20:00 98.0 103 20 128/56 90 Nasal Cannula Intake and Output 01/30/17 01/31/17 19:00 07:00 Intake Total 100 ml 60 ml Output Total 700 ml 300 ml Balance -600 ml -240 ml IV Total 100 ml 60 ml Output Urine Total 700 ml 300 ml # Bowel Movements 5 Laboratory Tests 01/31/17 04:00: Urine Eosinophils None seen 01/31/17 06:00: White Blood Count 5.3, Red Blood Count 3.36L, Hemoglobin 8.0L, Hematocrit 27.7L , Mean Corpuscular Volume 82, Mean Corpuscular Hemoglobin 23.7L, Mean Corpuscular Hemoglobin Concent 28.8L, Red Cell Distribution Width 21.6H, Platelet Count 225, Mean Platelet Volume 3.7L, Neutrophils (%) (Auto) 73.1, Lymphocytes (%) (Auto) 8.3L, Monocytes (%) (Auto) 16.0H, Eosinophils (%) (Auto) 1.2, Basophils (%) (Auto) 1.4, Sodium Level 141, Potassium Level 5.0H, Chloride Level 104, Carbon Dioxide Level 21, Anion Gap 16H, Blood Urea Nitrogen 80H, Creatinine 3.8H, Estimat Glomerular Filtration Rate 16.6, Glucose Level 87, Calcium Level 9.6 Current Medications Medications (Trade) Dose Ordered Sig/Korey Route PRN Reason Start Time Stop Time Status Last Admin Dose Admin Acetaminophen (Tylenol) 650 mg Q4H PRN ORAL Temp > 100.5 01/28/17 11:15 02/27/17 11:14 Acetaminophen (Tylenol) 650 mg Q4H PRN ORAL Mild Pain (Pain Scale 1-3) 01/28/17 13:30 02/27/17 13:29 Amlodipine Besylate (Norvasc) 2.5 mg DAILY ORAL 01/29/17 09:00 02/28/17 08:59 01/31/17 10:34 Clonidine HCl (Catapres) 0.1 mg Q4H PRN ORAL bp over 160 syst 01/28/17 11:30 02/27/17 11:29 Dextrose (Dextrose 50%) STAT PRN IV Hypoglycemia 01/28/17 11:15 02/27/17 11:14 Divalproex Sodium (Depakote ER) 1,500 mg BEDTIME ORAL 01/29/17 21:00 02/28/17 20:59 01/30/17 20:33 Epoetin Ariel (Procrit (for non ESRD use)) 10,000 units MON-WED-SUN SUBQ 01/29/17 21:00 02/28/17 20:59 01/29/17 20:37 Heparin Sodium (Porcine) (Heparin 5000 units/ml) 5,000 units EVERY 12 HOURS SUBQ 01/28/17 21:00 02/27/17 20:59 01/31/17 10:38 Insulin Aspart (NovoLOG) BEFORE MEALS AND HS SUBQ 01/28/17 11:30 02/27/17 11:29 01/31/17 12:45 Iron Sucrose/ Sodium Chloride (Venofer/Sodium Chloride) 60 ml @ 240 mls/hr BEDTIME IVPB 01/29/17 21:00 02/02/17 21:14 01/30/17 20:32 Levothyroxine Sodium (Synthroid) 75 mcg DAILY@0630 ORAL 01/29/17 06:30 02/28/17 06:29 01/31/17 05:33 Lorazepam (Ativan 2mg/ml 1ml) 0.5 mg Q4H PRN IV For Anxiety 01/28/17 11:15 02/04/17 11:14 Morphine Sulfate (Morphine Sulfate) 1 mg Q4H PRN IVP Pain 4-10 01/28/17 11:30 02/04/17 11:29 01/28/17 21:14 Ondansetron HCl (Zofran) 4 mg Q6H PRN IVP Nausea & Vomiting 01/28/17 11:30 02/27/17 11:29 Pantoprazole (Protonix) 40 mg EVERY 12 HOURS ORAL 01/28/17 21:00 02/27/17 20:59 01/31/17 10:35 Polyethylene Glycol (Miralax) 17 gm HSPRN PRN ORAL Constipation 01/28/17 20:00 02/27/17 19:59 Risperidone 2 mg 2 mg BEDTIME ORAL 01/28/17 21:00 02/27/17 20:59 01/30/17 20:33 Sevelamer Carbonate (Renvela) 800 mg THREE TIMES A DAY ORAL 01/30/17 13:00 03/01/17 12:59 01/31/17 13:24 Tamsulosin HCl (Flomax) 0.4 mg BID ORAL 01/28/17 18:00 02/27/17 17:59 01/31/17 10:35 Vitamin A/Vitamin D (A & D Oint) 1 applic EVERY 12 HOURS TOPIC 01/28/17 21:00 02/27/17 20:59 01/31/17 10:35 Zolpidem Tartrate (Ambien) 5 mg HSPRN PRN ORAL Insomnia 01/28/17 20:00 02/27/17 19:59 BRAXTON SUAREZ Jan 31, 2017 16:51
[2017-01-31 20:00] VITALS: BP 119/68
[2017-01-31 21:12] LABS: ANISOCYTOSIS 1+; BASOPHILS % (MANUAL) 1 % (0-2); EOSINOPHILS % (MANUAL) 2 % (0-3); HYPOCHROMASIA 2+; LYMPHOCYTES % (MANUAL) 16 % (20-45); NEUTROPHILS % (MANUAL) 73 % (45-75); TOTAL CELLS COUNTED 100
[2017-01-31 21:13] LABS: BAND NEUTROPHILS % (MANUAL) 0 % (0-8); PLATELET ESTIMATE ADEQUATE; PLATELET MORPHOLOGY NORMAL
[2017-01-31 21:14] LABS: PATH BLOOD SMEAR/OMC SENT TO PATHOLOGIST
[2017-01-31] MEDS: Iron Sucrose 100 MG in NS 55 ML IVPB SCH (21:14)
[2017-01-31] MEDS: Depakote ER 500mg tab ORAL SCH (21:16)
[2017-01-31] MEDS: Epogen (for non ESRD use) SUBQ SCH (21:16)
[2017-02-01] VITALS: BP 118/62
--- NOTE | 2017-02-01 00:30 | Progress Note ---
SUBJECTIVE: The patient continues to be irritable, at times anxious, uncooperative. The patient is non-cooperative with the examination. There are however no behavioral issues. No anxiety or agitation. MENTAL STATUS EXAMINATION: The patient is alert and oriented times self, place and situation. Mood is irritable. Affect is constricted, congruent with mood. Thought process, there is a paucity of thought content. Thought content, there is no suicidal or homicidal ideation. PLAN: 1. The patient's risperidone will be increased to 3 mg at bedtime. 2. Provide the patient with supportive therapy and reality orientation. 3. We will continue to follow and readjust the medications. Dale Galicia M.D. DR: MADDY JOB#: [id number] CC:
[2017-02-01 04:00] VITALS: BP 116/69
--- NOTE | 2017-02-01 04:30 | Consultation ---
DATE OF CONSULTATION: 01/31/2017 HEMATOLOGY/ONCOLOGY CONSULTATION REQUESTING PHYSICIAN: Bill Roman M.D. REASON FOR CONSULTATION: Evaluation of anemia. IDENTIFICATION DATA: Dear Dr. Roman, The patient is a pleasant 56-year-old male with past medical history significant for diabetes mellitus, hypertension, CKD on hemodialysis, hypothyroidism, schizophrenia, and bipolar disorder, at this time presents from the [facility] facility due to abnormal labs which showed anemia, hemoglobin 7.9. He was transfused. Currently, it is approximately 8.2. He has a history of getting hemodialysis. Had an EGD, which did not show any acute . Hematology service was consulted for evaluation of anemia. PAST MEDICAL HISTORY: As noted above. PAST SURGICAL HISTORY: As noted in the record. MEDICATIONS: Tylenol, aspirin, ferrous sulfate, Renagel, multivitamin, temazepam. ALLERGIES: Penicillin and shellfish. REVIEW OF SYSTEMS: Constitutional: No fever, chills, or night sweats. Skin: No rashes, lumps, or itching. HEENT: No headache, hearing, or vision changes. difficult to obtain given inability to obtain from the patient. PHYSICAL EXAMINATION: GENERAL: No acute distress. VITAL SIGNS: Temperature 98 degrees Fahrenheit, pulse of 83, respiratory rate 12, blood pressure 119/76, and pulse oximetry 99% on nasal cannula. PULMONARY: Decreased breath sounds. Some crackles noted. CARDIOVASCULAR: Regular rate. No S3 or S4. ABDOMEN: Soft, nontender, and nondistended. EXTREMITIES: A 1+ edema. LABORATORY DATA: WBC 9.3, hemoglobin 8, hematocrit 28, and platelet count 225,000. INR of 1.1. BUN of 78 and creatinine of 2.8. BNP 13,000. Urine revealed no evidence of electrolyte abnormalities otherwise noted. Occult blood is negative. ASSESSMENT AND RECOMMENDATIONS: 1. Anemia secondary to iron deficiency. Continue the patient on Venofer. 2. Anemia, rule out gastrointestinal bleed. EGD is negative. Consider colonoscopy as an outpatient. EGD completed. Gastritis noted. 3. Anemia secondary to kidney disease with decreased hemoglobin levels. Continue the patient on Epogen . 4. Chronic kidney disease, on hemodialysis. 5. Diabetes mellitus. 6. Bipolar disorder. I appreciate the consultation. Gennaro Gaston M.D. DR: Blair JOB#: [id number] CC:
[2017-02-01] MEDS: NovoLOG Insulin Flexpen SUBQ SCH ×3 (06:15→16:25)
[2017-02-01 06:31] LABS: MEAN CORPUSCULAR HEMOGLOBIN 24.2 PG (27.0-31.0); MEAN CORPUSCULAR HGB CONC 29.3 G/DL (32.0-36.0); MEAN CORPUSCULAR VOLUME 82 FL (80-99); MEAN PLATELET VOLUME 4.1 FL (6.5-10.1); PLATELET COUNT 234 K/UL (150-450); RED BLOOD COUNT 3.26 M/UL (4.70-6.10); RED CELL DISTRIBUTION WIDTH 21.8 % (11.6-14.8); WHITE BLOOD COUNT 5.6 K/UL (4.8-10.8)
[2017-02-01 07:03] LABS: CALCIUM 9.2 mg/dL (8.6-10.2); CREATININE 4.1 mg/dL (0.7-1.2); GLOMERULAR FILTRATION RATE 15.2 mL/min (>60); POTASSIUM 4.7 mEQ/L (3.4-4.9)
[2017-02-01 07:58] LABS: ANISOCYTOSIS 2+; BAND NEUTROPHILS % (MANUAL) 0 % (0-8); BASOPHILS % (MANUAL) 0 % (0-2); EOSINOPHILS % (MANUAL) 1 % (0-3); HYPOCHROMASIA 1+; LYMPHOCYTES % (MANUAL) 8 % (20-45); NEUTROPHILS % (MANUAL) 85 % (45-75); PLATELET ESTIMATE ADEQUATE; PLATELET MORPHOLOGY NORMAL; TOTAL CELLS COUNTED 100
[2017-02-01 08:28] VITALS: BP 117/68
--- NOTE | 2017-02-01 09:12 | General Progress Note ---
Assessment/Plan Status Narrative renal function worse- Anemia++ Confused Assessment/Plan status: CKD likely diabetic, 3+ proteinuria Sever Anemia Schizophrenia HTN HypoThyroidism Hematuria Plan: may lead to diaslysis- if DC need fu as OP- Need to locate decision maker- Keep BP and BS in check adjust bp meds- 2 D echo 65% EjFx EPO and Iron IV Iron one liter IV renal diet add Renvela Kidney ERIKA Impression: Echogenic kidneys consistent with intrinsic renal disease. Moderate right hydronephrosis with debris in the collecting system. Probable nonobstructive right renal calculus. Subjective ROS Limited/Unobtainable: Yes Allergies: Coded Allergies: PENICILLINS (Verified Allergy, Unknown, 12/12/16) SHELLFISH DERIVED (Unverified Allergy, Unknown, 01/26/17) Objective Last 24 Hour Vital Signs Date Time Temp Pulse Resp B/P Pulse Ox O2 Delivery O2 Flow Rate FiO2 02/01/17 08:28 97.2 101 19 117/68 88 Nasal Cannula 2.0 02/01/17 04:00 97.5 99 20 116/69 93 Room Air 02/01/17 00:00 98.1 98 20 118/62 94 Room Air 01/31/17 20:00 97.1 96 20 119/68 93 Room Air 01/31/17 16:00 97.1 99 19 121/74 91 Room Air 01/31/17 12:26 97.7 91 19 115/67 96 Nasal Cannula 01/31/17 10:34 69 112/69 01/31/17 10:28 69 112/69 Intake and Output 01/31/17 02/01/17 19:00 07:00 Intake Total 60 ml Output Total 502 ml Balance -502 ml 60 ml IV Total 60 ml Output Urine Total 500 ml Stool Total 2 ml # Voids 5 # Bowel Movements 1 Laboratory Tests 02/01/17 04:45: White Blood Count 5.6, Red Blood Count 3.26L, Hemoglobin 7.9L, Hematocrit 26.9L , Mean Corpuscular Volume 82, Mean Corpuscular Hemoglobin 24.2L, Mean Corpuscular Hemoglobin Concent 29.3L, Red Cell Distribution Width 21.8H, Platelet Count 234, Mean Platelet Volume 4.1L, Neutrophils (%) (Auto) , Lymphocytes (%) (Auto) , Monocytes (%) (Auto) , Eosinophils (%) (Auto) , Basophils (%) (Auto) , Differential Total Cells Counted 100, Neutrophils % ( Manual) 85H, Lymphocytes % (Manual) 8L, Monocytes % (Manual) 6, Eosinophils % ( Manual) 1, Basophils % (Manual) 0, Band Neutrophils 0, Platelet Estimate Adequate, Platelet Morphology Normal, Hypochromasia 1+, Anisocytosis 2+, Sodium Level 140, Potassium Level 4.7, Chloride Level 103, Carbon Dioxide Level 20, Anion Gap 17H, Blood Urea Nitrogen 80H, Creatinine 4.1H, Estimat Glomerular Filtration Rate 15.2, Glucose Level 101, Calcium Level 9.2 Height (Feet): 6 Height (Inches): 2.00 Weight (Pounds): 176 General Appearance: no apparent distress, lethargic, confused Cardiovascular: tachycardia Abdomen: soft Objective other PE no change CELESTE MCCALL Feb 01, 2017 09:12
[2017-02-01] MEDS: Vitamin A&D Oint 2oz Tube TOPIC SCH (10:09)
[2017-02-01] MEDS: Heparin 5000 units/ml inj SUBQ SCH (10:10)
[2017-02-01] MEDS: Tamsulosin 0.4mg cap ORAL SCH (10:36)
--- NOTE | 2017-02-01 11:05 | GI Progress Note ---
Assessment/Plan Problems: (1) Iron deficiency anemia ICD Codes: D50.9 - Iron deficiency anemia, unspecified SNOMED: 92047221 (2) Schizophrenia ICD Codes: F20.9 - Schizophrenia, unspecified SNOMED: 57358584 (3) Hypothyroidism ICD Codes: E03.9 - Hypothyroidism, unspecified SNOMED: 96354568 (4) Diabetes ICD Codes: E11.9 - Type 2 diabetes mellitus without complications SNOMED: 95057890 (5) Anemia ICD Codes: D64.9 - Anemia, unspecified SNOMED: 118435128 Status: stable Status Narrative Discussed with Dr. Juares. Assessment/Plan S/P EGD SUMMARY OF FINDINGS: 1. Gastritis. 2. Gastric polyp. 3. Colonoscopy was not done given the prep was not adequate. RECOMMENDATIONS: f/u OB stool >> negative, repeat colonoscopy as outpatient f/u bx reports prn transfusions iron deficiency >> venofer ppi fu labs Subjective Subjective limited Objective Last 24 Hour Vital Signs Date Time Temp Pulse Resp B/P Pulse Ox O2 Delivery O2 Flow Rate FiO2 02/01/17 10:09 101 117/68 02/01/17 08:28 97.2 101 19 117/68 88 Nasal Cannula 2.0 02/01/17 04:00 97.5 99 20 116/69 93 Room Air 02/01/17 00:00 98.1 98 20 118/62 94 Room Air 01/31/17 20:00 97.1 96 20 119/68 93 Room Air 01/31/17 16:00 97.1 99 19 121/74 91 Room Air 01/31/17 12:26 97.7 91 19 115/67 96 Nasal Cannula Intake and Output 01/31/17 02/01/17 19:00 07:00 Intake Total 60 ml Output Total 502 ml Balance -502 ml 60 ml IV Total 60 ml Output Urine Total 500 ml Stool Total 2 ml # Voids 5 # Bowel Movements 1 Laboratory Tests Test 02/01/17 04:45 White Blood Count 5.6 K/UL (4.8-10.8) Red Blood Count 3.26 M/UL (4.70-6.10) L Hemoglobin 7.9 G/DL (14.2-18.0) L Hematocrit 26.9 % (42.0-52.0) L Mean Corpuscular Volume 82 FL (80-99) Mean Corpuscular Hemoglobin 24.2 PG (27.0-31.0) L Mean Corpuscular Hemoglobin Concent 29.3 G/DL (32.0-36.0) L Red Cell Distribution Width 21.8 % (11.6-14.8) H Platelet Count 234 K/UL (150-450) Mean Platelet Volume 4.1 FL (6.5-10.1) L Neutrophils (%) (Auto) % (45.0-75.0) Lymphocytes (%) (Auto) % (20.0-45.0) Monocytes (%) (Auto) % (1.0-10.0) Eosinophils (%) (Auto) % (0.0-3.0) Basophils (%) (Auto) % (0.0-2.0) Differential Total Cells Counted 100 Neutrophils % (Manual) 85 % (45-75) H Lymphocytes % (Manual) 8 % (20-45) L Monocytes % (Manual) 6 % (1-10) Eosinophils % (Manual) 1 % (0-3) Basophils % (Manual) 0 % (0-2) Band Neutrophils 0 % (0-8) Platelet Estimate Adequate Platelet Morphology Normal Hypochromasia 1+ Anisocytosis 2+ Sodium Level 140 mEQ/L (135-145) Potassium Level 4.7 mEQ/L (3.4-4.9) Chloride Level 103 mEQ/L (98-107) Carbon Dioxide Level 20 mEQ/L (20-30) Anion Gap 17 (5-15) H Blood Urea Nitrogen 80 mg/dL (7-23) H Creatinine 4.1 mg/dL (0.7-1.2) H Estimat Glomerular Filtration Rate 15.2 mL/min (>60) Glucose Level 101 mg/dL (74-106) Calcium Level 9.2 mg/dL (8.6-10.2) Height (Feet): 6 Height (Inches): 2.00 Weight (Pounds): 176 General Appearance: no apparent distress, alert, thin Cardiovascular: normal rate Respiratory/Chest: normal breath sounds, no respiratory distress Abdominal Exam: normal bowel sounds, non tender, soft Veronica Woods N.PDenny Feb 01, 2017 11:05
[2017-02-01 11:41] VITALS: BP 118/72
[2017-02-01 11:55] VITALS: BP 123/80
--- NOTE | 2017-02-01 12:59 | Diagnostic Imaging Report ---
Indication: Dyspnea Comparison: 12/12/16 A single view chest radiograph was obtained. Findings: A only vascularity is prominent bilaterally. The heart is enlarged. Bones are osteopenic. The stomach appears distended. Impression: CHF/interstitial edema suspected. Please correlate clinically
[2017-02-01 13:33] LABS: OTHERS PATHOLOGIST COMMENT
[2017-02-01 16:00] VITALS: BP 138/83
[2017-02-01] MEDS ORDERED: Tubing IV Secondary IV ONE (16:00)
--- NOTE | 2017-02-01 17:06 | General Progress Note ---
Assessment/Plan Assessment/Plan 1. Anemia secondary to iron deficiency. -->Continue the patient on Venofer. --> prn transfusions 2. Anemia, rule out gastrointestinal bleed. EGD is negative. --> colonoscopy attempted but cancelled, consider as outpatient 3. Anemia secondary to kidney disease with decreased hemoglobin levels. Continue the patient on Epogen 4. Chronic kidney disease. --> possibly needs HD 5. Diabetes mellitus. 6. Bipolar disorder. Subjective Constitutional: Reports: no symptoms HEENT: Reports: no symptoms Cardiovascular: Reports: no symptoms Respiratory: Reports: no symptoms Gastrointestinal/Abdominal: Reports: no symptoms Genitourinary: Reports: no symptoms Neurologic/Psychiatric: Reports: no symptoms Endocrine: Reports: no symptoms Hematologic/Lymphatic: Reports: anemia Allergies: Coded Allergies: PENICILLINS (Verified Allergy, Unknown, 12/12/16) SHELLFISH DERIVED (Unverified Allergy, Unknown, 01/26/17) Subjective no events overnight Objective Last 24 Hour Vital Signs Date Time Temp Pulse Resp B/P Pulse Ox O2 Delivery O2 Flow Rate FiO2 02/01/17 16:00 97.5 100 19 138/83 90 Nasal Cannula 2.0 02/01/17 11:55 98.4 93 18 123/80 91 Nasal Cannula 2.0 02/01/17 11:41 98.4 106 20 118/72 92 Nasal Cannula 2.0 02/01/17 10:09 101 117/68 02/01/17 08:28 97.2 101 19 117/68 88 Nasal Cannula 2.0 02/01/17 04:00 97.5 99 20 116/69 93 Room Air 02/01/17 00:00 98.1 98 20 118/62 94 Room Air 01/31/17 20:00 97.1 96 20 119/68 93 Room Air Intake and Output 01/31/17 02/01/17 19:00 07:00 Intake Total 60 ml Output Total 502 ml Balance -502 ml 60 ml IV Total 60 ml Output Urine Total 500 ml Stool Total 2 ml # Voids 5 # Bowel Movements 1 Laboratory Tests 02/01/17 04:45: White Blood Count 5.6, Red Blood Count 3.26L, Hemoglobin 7.9L, Hematocrit 26.9L , Mean Corpuscular Volume 82, Mean Corpuscular Hemoglobin 24.2L, Mean Corpuscular Hemoglobin Concent 29.3L, Red Cell Distribution Width 21.8H, Platelet Count 234, Mean Platelet Volume 4.1L, Neutrophils (%) (Auto) , Lymphocytes (%) (Auto) , Monocytes (%) (Auto) , Eosinophils (%) (Auto) , Basophils (%) (Auto) , Differential Total Cells Counted 100, Neutrophils % ( Manual) 85H, Lymphocytes % (Manual) 8L, Monocytes % (Manual) 6, Eosinophils % ( Manual) 1, Basophils % (Manual) 0, Band Neutrophils 0, Platelet Estimate Adequate, Platelet Morphology Normal, Hypochromasia 1+, Anisocytosis 2+, Sodium Level 140, Potassium Level 4.7, Chloride Level 103, Carbon Dioxide Level 20, Anion Gap 17H, Blood Urea Nitrogen 80H, Creatinine 4.1H, Estimat Glomerular Filtration Rate 15.2, Glucose Level 101, Calcium Level 9.2 Height (Feet): 6 Height (Inches): 2.00 Weight (Pounds): 176 General Appearance: no apparent distress EENT: normal ENT inspection Neck: normal alignment Cardiovascular: normal rate Edema: no edema noted Pedal (L), no edema noted Pedal (R) Neurologic: rn hemodialysis II-XII grossly normal Skin: warm/dry Gennaro Gaston Feb 01, 2017 17:05
--- NOTE | 2017-02-01 20:31 | Progress Note ---
SUBJECTIVE: The patient was found asleep, arousable, was uncooperative, confused, was unable to understand process, communicate, and appreciate the information was given to him in regards to his medical condition as well as need of dialysis. The patient has poor insight and judgment. MENTAL STATUS EXAMINATION: The patient is alert and oriented times self, place and situation. He is in. Mood is neutral. Affect is constricted. Congruent with mood. Thought process is disorganized. Thought content, there is a paucity of thought content. ASSESSMENT: Schizophrenia. PLAN: 1. The patient lacks capacity to give consent to dialysis. 2. We will continue risperidone 3 mg at bedtime. 3. We will continue to follow and readjust the medications. Dale Galicia M.D. DR: FREEDOM JOB#: [id number] CC:
--- NOTE | 2017-02-01 22:24 | Pulmonology Progress Note ---
Assessment/Plan Problems: (1) GI bleeding (2) CKD (chronic kidney disease) (3) Hypothyroidism (4) Diabetes (5) Bipolar disorder (6) History of CVA (cerebrovascular accident) (7) Anemia Assessment/Plan GI evaluation appreciated, EGD negative for active bleeding OB negative check electrolytes might need HD soon, GFR 16, pt can't give consent, not competent. unclear who is in charge of the pt Subjective ROS Limited/Unobtainable: No Constitutional: Reports: no symptoms HEENT: Repors: no symptoms Respiratory: Reports: no symptoms Allergies: Coded Allergies: PENICILLINS (Verified Allergy, Unknown, 12/12/16) SHELLFISH DERIVED (Unverified Allergy, Unknown, 01/26/17) Objective Last 24 Hour Vital Signs Date Time Temp Pulse Resp B/P Pulse Ox O2 Delivery O2 Flow Rate FiO2 02/01/17 16:00 97.5 100 19 138/83 90 Nasal Cannula 2.0 02/01/17 11:55 98.4 93 18 123/80 91 Nasal Cannula 2.0 02/01/17 11:41 98.4 106 20 118/72 92 Nasal Cannula 2.0 02/01/17 10:09 101 117/68 02/01/17 08:28 97.2 101 19 117/68 88 Nasal Cannula 2.0 02/01/17 04:00 97.5 99 20 116/69 93 Room Air 02/01/17 00:00 98.1 98 20 118/62 94 Room Air Intake and Output 01/31/17 02/01/17 19:00 07:00 Intake Total 60 ml Output Total 502 ml Balance -502 ml 60 ml IV Total 60 ml Output Urine Total 500 ml Stool Total 2 ml # Voids 5 # Bowel Movements 1 General Appearance: WD/WN, no acute distress HEENT: normocephalic, atraumatic Respiratory/Chest: chest wall non-tender, lungs clear Cardiovascular: normal peripheral pulses, normal rate Abdomen: normal bowel sounds, soft, non tender, no scars Genitourinary: normal external genitalia Extremities: no cyanosis Laboratory Tests 02/01/17 04:45: White Blood Count 5.6, Red Blood Count 3.26L, Hemoglobin 7.9L, Hematocrit 26.9L , Mean Corpuscular Volume 82, Mean Corpuscular Hemoglobin 24.2L, Mean Corpuscular Hemoglobin Concent 29.3L, Red Cell Distribution Width 21.8H, Platelet Count 234, Mean Platelet Volume 4.1L, Neutrophils (%) (Auto) , Lymphocytes (%) (Auto) , Monocytes (%) (Auto) , Eosinophils (%) (Auto) , Basophils (%) (Auto) , Differential Total Cells Counted 100, Neutrophils % ( Manual) 85H, Lymphocytes % (Manual) 8L, Monocytes % (Manual) 6, Eosinophils % ( Manual) 1, Basophils % (Manual) 0, Band Neutrophils 0, Platelet Estimate Adequate, Platelet Morphology Normal, Hypochromasia 1+, Anisocytosis 2+, Sodium Level 140, Potassium Level 4.7, Chloride Level 103, Carbon Dioxide Level 20, Anion Gap 17H, Blood Urea Nitrogen 80H, Creatinine 4.1H, Estimat Glomerular Filtration Rate 15.2, Glucose Level 101, Calcium Level 9.2 BRAXTON SAUREZ Feb 01, 2017 22:24
--- NOTE | 2017-02-02 08:38 | Discharge Summary ---
Discharge Summary Hospital Course Date of Admission Jan 26, 2017 at 18:20 Date of Discharge Feb 01, 2017 at 17:00 Admitting Diagnosis anemia AUDI Lyn is a 56 year old male who was admitted on Jan 26, 2017 at 18:20 for Anemia Hospital Course [id number] Discharge Discharge Disposition Patient was discharged to [facility] (04) Discharge Diagnoses: Beatrice Velásquez NP Feb 02, 2017 08:38
--- NOTE | 2017-02-03 03:15 | Discharge Summary 2 SIG ---
DATE OF ADMISSION: 01/26/2017 DATE OF DISCHARGE: 02/01/2017 CONSULTANTS: 1. John Juares M.D. 2. Art Epstein M.D. 3. Dale Galicia M.D. 4. Gennaro Gaston M.D. BRIEF HOSPITAL COURSE: The patient is a 56-year-old male with history of diabetes mellitus, hypertension, chronic kidney disease, CVA, hypothyroidism, schizophrenia, bipolar disorder, who was sent in from nursing facility due to abnormal labs revealing anemia. On evaluation at ED, workup showed hemoglobin 7.9 and hematocrit 26.1. Potassium was 5.2 and creatinine was elevated to 3.1 with BUN 69. Urinalysis done showed 5+ occult blood. He was admitted to telemetry for acute anemia due to hematuria, hyperkalemia and CKD. He was given Kayexalate. Renal ultrasound showed echogenic kidneys with moderate right hydronephrosis and a nonobstructive right renal calculus. Anemia workup showed low iron as well as evidence of anemia of chronic disease. He received two units packed RBC blood transfusion and was given IV Venofer and was started on Epogen. Aspirin and heparin was placed on hold. Venous duplex was negative for DVT. SCDs were applied. TSH was elevated and levothyroxine was increased to 75 mcg daily. He was diagnosed with schizophrenia and was continued on Depakote, changed to 1500 mg nightly. Trazodone and Seroquel was discontinued. He was given risperidone 2 mg nightly. He was given proton pump inhibitors and on 01/30/2017 underwent EGD with colonoscopy by Dr. Juares. Findings showed gastritis and gastric polyp. Colonoscopy was not done as there was inadequate prep. Stool OB was negative. The patient was recommended to have a colonoscopy done as outpatient. Kidney function continued to be elevated. The patient may eventually need dialysis later on. The patient would need strict followup as outpatient and need to locate decision maker for the patient as he is incapable to give consent as he lacks capacity for consent. The [facility] was [facility] to [facility]. FINAL DIAGNOSES: 1. Acute anemia requiring blood transfusion. 2. Acute on chronic renal failure. 3. Chronic kidney disease, probably likely diabetic nephropathy. 4. Schizophrenia. 5. Hypothyroidism. 6. Hypertension. 7. Hematuria. 8. Gastrointestinal bleed, status post endoscopy with findings of gastritis and colonic and gastric polyp. 9. Iron deficiency anemia. 10. Anemia of chronic disease. 11. Old cerebrovascular accident. 12. Diabetes mellitus. DISPOSITION: The patient was discharged back to [facility] post blood transfusion. DISCHARGE MEDICATIONS: Refer to med list. FOLLOWUP: The patient would eventually need hemodialysis, need to determine responsible person for consent. Follow up with the PCP in a week at [facility]. Bill Roman M.D. I have been assigned to dictate discharge summary on this account and I was not involved in the patient's management. Beatrice Velásquez N.P. DR: Arjun JOB#: [id number] CC: [facility]
== END 2017-02-01 17:00 | DRG 663 ==
LOC: EMR 17:39 → 2E 18:20 → EDBEDREQ 20:24 → 2E 01-27 11:33 → 4W 01-28 10:59
PROC: 30233N1 Transfusion of Nonautologous Red Blood Cells into Peripheral Vein, Percutaneous Approach (ICD-10-PCS; 2017-01-30)
PROC: 0DB68ZX Excision of Stomach, Via Natural or Artificial Opening Endoscopic, Diagnostic (ICD-10-PCS; principal; 2017-01-30 12:38)
DX: D50.9 Iron deficiency anemia, unspecified (principal); N17.9 Acute kidney failure, unspecified; E11.22 Type 2 diabetes mellitus with diabetic chronic kidney disease; I69.859 Hemiplegia and hemiparesis following other cerebrovascular disease affecting unspecified side; E87.5 Hyperkalemia; F20.9 Schizophrenia, unspecified; I12.9 Hypertensive chronic kidney disease with stage 1 through stage 4 chronic kidney disease, or unspecified chronic kidney disease; N18.9 Chronic kidney disease, unspecified; E03.9 Hypothyroidism, unspecified; K29.60 Other gastritis without bleeding; K31.7 Polyp of stomach and duodenum; D63.1 Anemia in chronic kidney disease; F31.9 Bipolar disorder, unspecified; N13.2 Hydronephrosis with renal and ureteral calculous obstruction; K92.2 Gastrointestinal hemorrhage, unspecified; Z53.8 Procedure and treatment not carried out for other reasons
CPT/HCPCS: 36415; 71010; 76775; 80048; 80053; 80061; 81003; 82270; 82378; 82550; 82607; 82728; 82746; 82962; 82977; 83036; 83540; 83550; 83690; 83735; 83880; 84100; 84300; 84443; 84550; 85007; 85025; 85060; 85610; 85730; 86140; 86850; 86900; 86901; 86920; 87081; 89050; 93005; 93306; 93970; 94003; 94150; J1815; J2250; J3490